=== PATIENT | female | born 1955 | race Caucasian/White ===

== ENCOUNTER → 2016-05-31 | Outpatient (CLI) | payer BC ==
--- NOTE | 2016-06-03 16:04 | BD ---
EXAMINATION TYPE: MG DEXA axial skeleton. DATE OF EXAM: 05/31/2016 3:12 PM COMPARISON: NONE CLINICAL HISTORY: Height: 65 IN Weight: 189 LBS FRAX RISK QUESTIONS: Alcohol (3 or more units per day): NO Family History (Parent hip fracture): NO Glucocorticoids (More than 3mos): NO (Ex: prednisone, prednisolone, methylprednisolone, dexamethasone, and hydrocortisone). History of Fracture in Adulthood: NO Secondary Osteoporosis: 1. Type 1 Diabetes: NO 2. Hyperthyroidism: NO 3. Menopause before 45: YES 37 4. Malnutrition: NO 5. Chronic liver disease: NO Rheumatoid Arthritis: NO Current Tobacco Use: NO RISK FACTORS HISTORY OF: Active: YES Postmenopausal woman: YES TOTAL HYST AGE 37 Take estrogen and/or progesterone medications: NOT NOW How long: AGE 37 - 59 MEDICATIONS: Additional Medications: ALPRAZOLAM, FLEXERIL, HYDROCODONE, METAXALONE, METOPROLOL SUCCINATE, OMEPRAZO LE,MIRAPEX, SERTRALINE XLAMBIEN, TRAMADOL EXAM MEASUREMENTS: Bone mineral densitometry was performed using the Vouchr System. Bone mineral density as measured about the Lumbar spine is: ----- L1-L4(G/cm2): 1.297 T Score Values are as follows: ----- L2: 0.3 ----- L3: 2.0 ----- L4: 1.6 ----- L1-L4: 1.0 Bone mineral density has: Increased 3.7% since study of: 03/26/2011 Bone mineral density about the R hip (g/cm2): 0.844 Bone mineral density about the L hip (g/cm2): 0.856 T Score values are as follows: -----R Neck: -1.4 -----L Neck: -1.3 -----R Intertrochanter: -1.2 -----L Intertrochanter: 0.1 Bone mineral density has: Increased 3.0% since study of: 03/26/2011 IMPRESSION: Osteopenia (T Score between -2.5 and -1 as noted by T score values There is slightly increased risk of fracture and the patient may be considered for treatment. Re-Screen 1-2 years. NOTE: T-SCORE=SD OF THE YOUNG ADULT MEAN.
--- NOTE | 2016-06-05 09:01 | MM ---
Reason for exam: screening (asymptomatic). Last mammogram was performed 1 year and 1 month ago. History: Patient is postmenopausal. Benign excisional biopsy of the right breast, April 27, 1999. Took estrogen for 12 years. Physical Findings: A clinical breast exam by your physician is recommended on an annual basis and results should be correlated with mammographic findings. MG Screening Mammo w CAD Bilateral CC and MLO view(s) were taken. Prior study comparison: April 18, 2015, bilateral MG screening mammo w CAD. December 31, 2013, bilateral MG screening mammo w CAD. There are scattered fibroglandular densities. No significant changes when compared with prior studies. ASSESSMENT: Benign, BI-RAD 2 RECOMMENDATION: Routine screening mammogram of both breasts in 1 year.
== END | disposition home or self-care (01) ==
LOC: RADMAMWWP 14:40
PROVIDERS: ATTEND Family Medicine
DX: Z13.21 Encounter for screening for nutritional disorder (principal); M85.80 Other specified disorders of bone density and structure, unspecified site; Z78.0 Asymptomatic menopausal state
CPT/HCPCS: 77080; G0202

== ENCOUNTER → 2016-12-27 | Outpatient (CLI) | payer BC ==
--- NOTE | 2016-12-27 12:17 | XR ---
EXAMINATION TYPE: XR cervical spine comp DATE OF EXAM: 12/27/2016 TECHNIQUE: Frontal, lateral, oblique, and open mouth view of the cervical spine are obtained. HISTORY: M50.30 cervical disc degeneration per order. Left-sided neck pain with stiffness per patien t. COMPARISON: None FINDINGS: The cervical spine is visualized in its entirety from C1 thru the top of T1 level, it is s traightened in alignment without evidence of acute fracture or dislocation. The pre-vertebral soft t issue appears within normal limits. The C1-C2 articulation is within normal limits on the open mouth view. Vertebral body heights are maintained. There is mild to moderate spurring and disc space narrowing C5 -C6 and C6-C7 levels. Oblique images show mild to moderate left-sided neural foraminal narrowing C4-C 5 and C5-C6 levels. There are uncovertebral facet degenerative changes seen bilaterally most prominen t in the mid cervical spine at C5-C6 level slightly more prominent on the left. Marginal spurring is present. Overlying soft tissue is unremarkable. IMPRESSION: Straightening of cervical spine with multilevel degenerative changes in the mid to lower cervical spine as noted above..
== END | disposition home or self-care (01) ==
LOC: RADXRMAIN 11:16
PROVIDERS: ATTEND Family Medicine
DX: M47.812 Spondylosis without myelopathy or radiculopathy, cervical region (principal); M40.292 Other kyphosis, cervical region
CPT/HCPCS: 72050

== ENCOUNTER → 2017-01-10 | Outpatient (CLI) | payer BC ==
--- NOTE | 2017-01-11 00:29 | MR ---
EXAMINATION TYPE: MR cervical spine wo con DATE OF EXAM: 01/10/2017 COMPARISON: NONE HISTORY: Neck pain, headaches, LUE radic x 1-2 years, no trauma TECHNIQUE: Multiplanar, multisequence images of the cervical spine were acquired. The cervical vertebra show fairly normal alignment. There is narrowing at C5-6 C6-7 disc spaces. Ther e is mild spurring of the endplates. Cervical spinal cord has normal signal pattern without evidence of edema. I see no cervical disc herniation. There is no sign of spinal stenosis. Brainstem is intact . I see no bony destructive process. IMPRESSION: Mild spondylosis in the lower cervical spine. No fracture.
== END | disposition home or self-care (01) ==
LOC: RADMRIMAIN 17:48
PROVIDERS: ATTEND Family Medicine
DX: M47.812 Spondylosis without myelopathy or radiculopathy, cervical region (principal)
CPT/HCPCS: 72141

== ENCOUNTER 2017-07-11 11:12 | Observation (INO) | payer BC ==
--- NOTE | 2017-07-11 12:06 | ED ---
General Adult HPI - General Chief complaint: Chest Pain Stated complaint: suyapa, chest pain, hypertension, [place] Time Seen by Provider: 07/11/17 11:42 Source: patient, RN notes reviewed Mode of arrival: wheelchair Limitations: no limitations - History of Present Illness Initial comments: 61-year-old female presents to the emergency department with a chief complaint of chest pain and shortness of breath. Patient states she's had this episodes of chest pain and shortness of breath on and off for the past 3 weeks. Patient states that will come and go. Patient states that she's to active or she talked to much she feels like she has to catch her breath. She states that she is chest pain she feels like her heart is racing. She denies any recent long trips or travel she denies any history of blood clots. She states that she's never really had these issues before. Patient states that she went to her family care doctor he was referred here to be evaluated. Patient does admit to have a history of hypertension and states that she did take her medications last night. Patient denies any cardiac history in herself. Patient denies any history of any lung issues. Patient denies any recent fever, chills, back pain , abdominal pain, nausea vomiting, numbness or tingling, dysuria or hematuria, constipation or diarrhea, headaches or visual changes, or any other current symptoms. - Related Data Home Medications Medication Instructions Recorded Confirmed ALPRAZolam [ALPRAZolam] 0.5 mg PO BID PRN 07/04/15 07/11/17 Cyclobenzaprine [Flexeril] 10 mg PO TID PRN 07/04/15 07/11/17 Metaxalone [Metaxalone] 800 mg PO QAM 07/04/15 07/11/17 Metoprolol Succinate [Toprol XL] 50 mg PO HS 07/04/15 07/11/17 Omeprazole [Omeprazole] 20 mg PO DAILY 07/04/15 07/11/17 Pramipexole [Mirapex] 0.5 mg PO HS 07/04/15 07/11/17 Sertraline HCl [Sertraline HCl] 100 mg PO QAM 07/04/15 07/11/17 Acetaminophen-Codeine 300-30mg 1 tab PO TID 07/11/17 07/11/17 [Tylenol #3] Allergies Allergy/AdvReac Type Severity Reaction Status Date / Time pumpkin Allergy Anaphylaxis Verified 07/11/17 11:54 Sulfa (Sulfonamide Allergy Rash/Hives Verified 07/11/17 11:54 Antibiotics) Review of Systems ROS Statement: Those systems with pertinent positive or pertinent negative responses have been documented in the HPI. ROS Other: All systems not noted in ROS Statement are negative. Past Medical History Past Medical History: GERD/Reflux, Hypertension, Musculoskeletal Disorder Additional Past Medical History / Comment(s): hiatal hernia, states "feels like I get a lashonda horse when I bend over in my stomach area and I have to rub it out",chronic neck and back pain, restless leg syndrome History of Any Multi-Drug Resistant Organisms: None Reported Past Surgical History: Appendectomy, Section, Cholecystectomy, Hysterectomy, Orthopedic Surgery Additional Past Surgical History / Comment(s): c-sect x3,rt knee arthroscopy x2 , heel spurs nahomy feet,laparoscopy x 10 endometriosis/pre ca cells Past Anesthesia/Blood Transfusion Reactions: Postoperative Nausea & Vomiting ( PONV) Additional Past Anesthesia/Blood Transfusion Reaction / Comment(s): no blood transfusion Past Psychological History: No Psychological Hx Reported Smoking Status: Former smoker Past Alcohol Use History: None Reported Past Drug Use History: None Reported - Past Family History Mother Additional Family Medical History / Comment(s): w/ sepsis after area removed from pancreas Father Family Medical History: Cancer Additional Family Medical History / Comment(s): stomach Brother(s) Family Medical History: Cancer Additional Family Medical History / Comment(s): colon- at age 52 Sister(s) Family Medical History: CVA/TIA Additional Family Medical History / Comment(s): cva- at age 55 General Exam - General Exam Comments Initial Comments: General: The patient is awake and alert, in no distress, and does not appear acutely ill. Eye: Pupils are equal, round and reactive to light, extra-ocular movements are intact; there is normal conjunctiva bilaterally. No signs of icterus. Ears, nose, mouth and throat: There are moist mucous membranes and no oral lesions. Neck: The neck is supple, there is no tenderness. Cardiovascular: There is a regular rate and rhythm. No murmur, rub or gallop is appreciated. Respiratory: Lungs are clear to auscultation, respirations are non-labored, breath sounds are equal. No wheezes, stridor, rales, or rhonchi. Gastrointestinal: Soft, non-distended, non-tender abdomen without masses or organomegaly noted. There is no rebound or guarding present. No CVA tenderness. Bowel sounds are unremarkable. Back: There is no tenderness to palpation in the midline. There is no obvious deformity. No rashes noted. Musculoskeletal: Normal ROM, no tenderness, There is no pedal edema. There is no calf tenderness or swelling. Sensation intact. Pulses equal bilaterally 2+. Neurological: CN II-XII intact, There are no obvious motor or sensory deficits. Coordination appears grossly intact. Speech is normal. Skin: Skin is warm and dry and no rashes or lesions are noted. Psychiatric: Cooperative, appropriate mood & affect, normal judgment. Limitations: no limitations Course Vital Signs 07/11/17 07/11/17 07/11/17 11:28 11:57 12:08 Temperature 97.4 F L Pulse Rate 90 77 Respiratory 16 18 18 Rate Blood Pressure 194/89 166/95 O2 Sat by Pulse 97 99 Oximetry 07/11/17 12:56 Temperature Pulse Rate 75 Respiratory 18 Rate Blood Pressure 159/79 O2 Sat by Pulse 94 L Oximetry EKG Findings - EKG Comments: EKG Findings:: normal sinus rhythm 81 bpm, normal axis, no atopy, no S-T depressions or elevations, Medical Decision Making - Medical Decision Making 61-year-old female presents to the emergency department with a chief complaint of chest pain and shortness of breath. At this time patient's lab work is reviewed and negative. Due to the patient's continued story the history of the continued on and off shortness of breath chest pain history of the diuresis there is concern that this could be unstable angina in nature. This time we did discuss we will admit the patient for continued cardiac monitoring. The patient is in agreement with this plan. All questions have been answered. - Lab Data Result diagrams: 07/11/17 12:06 07/11/17 12:06 Lab Results 07/11/17 07/11/17 07/11/17 Range/Units 12:06 12:06 12:06 WBC 7.4 (3.8-10.6) k/uL RBC 4.27 (3.80-5.40) m/uL Hgb 12.2 (11.4-16.0) gm/dL Hct 36.7 (34.0-46.0) % MCV 85.8 (80.0-100.0) fL MCH 28.5 (25.0-35.0) pg MCHC 33.2 (31.0-37.0) g/dL RDW 12.9 (11.5-15.5) % Plt Count 218 (150-450) k/uL Neutrophils % 63 % Lymphocytes % 24 % Monocytes % 7 % Eosinophils % 3 % Basophils % 1 % Neutrophils # 4.7 (1.3-7.7) k/uL Lymphocytes # 1.8 (1.0-4.8) k/uL Monocytes # 0.5 (0-1.0) k/uL Eosinophils # 0.2 (0-0.7) k/uL Basophils # 0.1 (0-0.2) k/uL PT (9.0-12.0) sec INR (<1.2) APTT (22.0-30.0) sec D-Dimer (<0.60) mg/L FEU Sodium 142 (137-145) mmol/L Potassium 4.1 (3.5-5.1) mmol/L Chloride 104 (98-107) mmol/L Carbon Dioxide 27 (22-30) mmol/L Anion Gap 11 mmol/L BUN 17 (7-17) mg/dL Creatinine 0.62 (0.52-1.04) mg/dL Est GFR (MDRD) Af Amer >60 (>60 ml/min/1.73 sqM) Est GFR (MDRD) Non-Af >60 (>60 ml/min/1.73 sqM) Glucose 90 (74-99) mg/dL Calcium 9.4 (8.4-10.2) mg/dL Magnesium 1.8 (1.6-2.3) mg/dL Total Bilirubin 0.4 (0.2-1.3) mg/dL AST 33 (14-36) U/L ALT 44 (9-52) U/L Alkaline Phosphatase 118 (38-126) U/L Total Creatine Kinase 66 (30-135) U/L CK-MB (CK-2) 0.8 (0.0-2.4) ng/mL CK-MB (CK-2) Rel Index 1.2 Troponin I <0.012 (0.000-0.034) ng/mL NT-Pro-B Natriuret Pep pg/mL Total Protein 6.9 (6.3-8.2) g/dL Albumin 4.0 (3.5-5.0) g/dL 07/11/17 07/11/17 Range/Units 12:06 12:06 WBC (3.8-10.6) k/uL RBC (3.80-5.40) m/uL Hgb (11.4-16.0) gm/dL Hct (34.0-46.0) % MCV (80.0-100.0) fL MCH (25.0-35.0) pg MCHC (31.0-37.0) g/dL RDW (11.5-15.5) % Plt Count (150-450) k/uL Neutrophils % % Lymphocytes % % Monocytes % % Eosinophils % % Basophils % % Neutrophils # (1.3-7.7) k/uL Lymphocytes # (1.0-4.8) k/uL Monocytes # (0-1.0) k/uL Eosinophils # (0-0.7) k/uL Basophils # (0-0.2) k/uL PT 10.6 (9.0-12.0) sec INR 1.1 (<1.2) APTT 33.7 H (22.0-30.0) sec D-Dimer 0.28 (<0.60) mg/L FEU Sodium (137-145) mmol/L Potassium (3.5-5.1) mmol/L Chloride (98-107) mmol/L Carbon Dioxide (22-30) mmol/L Anion Gap mmol/L BUN (7-17) mg/dL Creatinine (0.52-1.04) mg/dL Est GFR (MDRD) Af Amer (>60 ml/min/1.73 sqM) Est GFR (MDRD) Non-Af (>60 ml/min/1.73 sqM) Glucose (74-99) mg/dL Calcium (8.4-10.2) mg/dL Magnesium (1.6-2.3) mg/dL Total Bilirubin (0.2-1.3) mg/dL AST (14-36) U/L ALT (9-52) U/L Alkaline Phosphatase (38-126) U/L Total Creatine Kinase (30-135) U/L CK-MB (CK-2) (0.0-2.4) ng/mL CK-MB (CK-2) Rel Index Troponin I (0.000-0.034) ng/mL NT-Pro-B Natriuret Pep 95 pg/mL Total Protein (6.3-8.2) g/dL Albumin (3.5-5.0) g/dL - Radiology Data Radiology results: report reviewed, image reviewed Disposition Clinical Impression: Unstable angina Disposition: ADMITTED IP TO THIS [facility] Condition: Stable Referrals: Darci Mandel MD [Primary Care Provider] - 1-2 days Decision Date: 07/11/17 Decision Time: 13:45
[2017-07-11 12:21] LABS: Basophils # (A) 0.1 k/uL (0-0.2); Basophils % (A) 1 %; Eosinophils # (A) 0.2 k/uL (0-0.7); Eosinophils % (A) 3 %; HCT 36.7 % (34.0-46.0); HGB 12.2 gm/dL (11.4-16.0); Lymphocytes # (A) 1.8 k/uL (1.0-4.8); Lymphocytes % (A) 24 %; MCH 28.5 pg (25.0-35.0); MCHC 33.2 g/dL (31.0-37.0); MCV 85.8 fL (80.0-100.0); Mean Platelet Volume 7.3; Monocytes # (A) 0.5 k/uL (0-1.0); Monocytes % (A) 7 %; Neutrophils # (A) 4.7 k/uL (1.3-7.7); Neutrophils % (A) 63 %; Platelet Count 218 k/uL (150-450); RBC 4.27 m/uL (3.80-5.40); RDW 12.9 % (11.5-15.5); WBC 7.4 k/uL (3.8-10.6)
[2017-07-11 12:28] LABS: ALT 44 U/L (9-52); AST 33 U/L (14-36); Alkaline Phosphatase 118 U/L (38-126); Anion Gap 11 mmol/L; Blood Urea Nitrogen 17 mg/dL (7-17); Calcium 9.4 mg/dL (8.4-10.2); Carbon Dioxide 27 mmol/L (22-30); Chloride 104 mmol/L (98-107); Glucose 90 mg/dL (74-99); Potassium 4.1 mmol/L (3.5-5.1); Sodium 142 mmol/L (137-145); Total Bilirubin 0.4 mg/dL (0.2-1.3); Total Protein 6.9 g/dL (6.3-8.2)
[2017-07-11 12:31] LABS: D-Dimer 0.28 mg/L FEU (<0.60)
--- NOTE | 2017-07-11 12:32 | XR ---
EXAMINATION TYPE: XR chest 2V DATE OF EXAM: 07/11/2017 COMPARISON: Prior chest x-ray 07/06/2015 HISTORY: Chest pain, weakness and shortness of breath TECHNIQUE: Frontal and lateral views of the chest are obtained. FINDINGS: Cardiac mediastinal silhouette, pulmonary vascularity and sendy are stable. There are overl maritza cardiac leads. No evident airspace disease, pneumothorax, or pleural effusion. Surgical clips pr esent in the right upper quadrant. IMPRESSION: Stable cardiomegaly. No acute cardiopulmonary disease.
[2017-07-11 12:35] LABS: INR 1.1 (<1.2); Partial Thromboplastin Time 33.7 sec (22.0-30.0); Prothrombin Time 10.6 sec (9.0-12.0)
[2017-07-11 12:47] LABS: Creatine Kinase 66 U/L (30-135)
[2017-07-11 13:00] LABS: Creatine Kinase MB 0.8 ng/mL (0.0-2.4); Troponin I <0.012 ng/mL (0.000-0.034)
[2017-07-11] MEDS ORDERED: HEPARIN SOD,PORK IN 0.45% NACL 25,000 UNIT in 0.45% NACL 1 500ML.BAG IV SCH (13:45)
[2017-07-11] MEDS ORDERED: HEPARIN SODIUM,PORCINE 5,000 UNIT/ML 1 ML VIAL IV ONE (13:45)
[2017-07-11] MEDS ORDERED: NITROGLYCERIN SL TABS 0.4 MG TAB SUBLINGUAL PRN (13:45)
[2017-07-11] MEDS ORDERED: CYCLOBENZAPRINE 10 MG TAB PO PRN (17:17)
[2017-07-11] MEDS: Acetaminophen-Codeine 300-30mg TAB PO SCH ×2 (17:34→22:16)
[2017-07-11 19:43] LABS: Creatine Kinase 58 U/L (30-135)
[2017-07-11 19:55] LABS: Creatine Kinase MB 0.7 ng/mL (0.0-2.4); Troponin I <0.012 ng/mL (0.000-0.034)
[2017-07-11] MEDS: ALPRAZolam 0.5 MG TAB PO PRN (20:41)
--- NOTE | 2017-07-11 20:42 | HP ---
HISTORY AND PHYSICAL DATE OF SERVICE: 07/11/2017 CHIEF COMPLAINT: Chest pain. HISTORY OF PRESENT ILLNESS: This 61-year-old woman with a past medical history of multiple medical problems, including GERD, hypertension, hyperlipidemia, history of DJD, history of hiatal hernia, being followed by Darci Mandel in the outpatient setting, was admitted with chest pain to [facility]. The patient had multiple episodes of chest pain for almost 2 weeks, coming and going on different occasions. The patient also had shortness of breath. Pain is mostly felt in the anterior part of the chest, heavy in character, and sometimes located. The patient came to [facility] and was admitted for evaluation and treatment. There is no history of any fever, rigors or chills. No history of headache, loss of consciousness, seizures. After admission, D-dimer was negative and basic labs were also negative. PAST MEDICAL HISTORY: 1. History of GERD. 2. Hypertension. 3. Hyperlipidemia. 4. History of hiatal hernia. 5. History of appendectomy. 6. History of section. MEDICATIONS: 1. Tylenol #3 one p.o. t.i.d. 2. Zoloft 100 mg each morning. 3. Mirapex 0.5 mg at bedtime. 4. Omeprazole 20 mg p.o. daily. 5. Toprol XL 50 mg at bedtime. 6. Metaxalone 800 mg p.o. each morning. 7. Flexeril 10 mg p.o. t.i.d. p.r.n. 8. Xanax 0.5 p.o. b.i.d. p.r.n. ALLERGIES: 1. PUMPKIN. 2. SULFA. FAMILY HISTORY: History of cancer, sepsis. SOCIAL HISTORY: Previous history of smoking. No current smoking or alcohol intake. REVIEW OF SYSTEMS: ENT: No diminished hearing. No diminished vision. CARDIOVASCULAR SYSTEM: As mentioned earlier. RESPIRATORY SYSTEM: As mentioned earlier. GI: No nausea, vomiting. : No dysuria or retention. NERVOUS SYSTEM: No numbness, weakness. ALLERGY/IMMUNOLOGY: No asthma, hayfever. MUSCULOSKELETAL: As mentioned earlier. HEMATOLOGY/ONCOLOGY: No history of anemia. ENDOCRINE: No history of diabetes, hypothyroidism. CONSTITUTIONAL: As mentioned earlier. DERMATOLOGY: Negative. RHEUMATOLOGY: Negative. PSYCHIATRY: As mentioned earlier. PHYSICAL EXAMINATION: Patient alert and oriented x3. Pulse 70, blood pressure 178/80, respiration 18, temperature 97.7, pulse ox 94% on room air. HEENT: Conjunctivae normal. Oral mucosa moist. NECK: No jugular venous distention. No carotid bruit. No lymph node enlargement. CARDIOVASCULAR SYSTEM: S1, S2 muffled. No S3. No S4. RESPIRATORY SYSTEM: Breath sounds diminished at the bases. No rhonchi. No crackles. ABDOMEN: Soft, non-tender. No mass palpable. LEGS: No edema. No swelling. NERVOUS SYSTEM: Higher functions as mentioned earlier. Moves all 4 limbs. No focal motor or sensory deficit. LYMPHATICS: No lymph node palpable in neck, axillae or groin. SKIN: No ulcer, rash, bleeding. LABS: CBC and BMP within normal limits. D-dimer 0.28. ASSESSMENT: 1. Chest pain, possible unstable angina. Rule out GERD. 2. History of hypertension. 3. Hyperlipidemia. 4. History of degenerative joint disease. 5. Hiatal hernia. 6. History of gastroesophageal reflux disease. 7. Cholecystectomy. 8. Remote history of nicotine dependence. RECOMMENDATIONS AND DISCUSSION: In this 61-year-old woman who presented with multiple complex medical issues, we will monitor the patient closely, continue the current medications, continue with symptomatic treatment. I would recommend continuing with the current medications. Unstable angina protocol. Cardiology consultation. Rule out myocardial infarction. Resume the home medications. Protonix. Guarded prognosis because of multiple complex medical issues. Further recommendations to follow. I also recommend close followup with Dr. Darci Mandel, who is the primary physician. MMODL / IJN: [id number] /
[2017-07-11] MEDS ORDERED: PRAMIPEXOLE 0.5 MG TAB PO SCH (21:00)
[2017-07-11] MEDS ORDERED: METOPROLOL SUCCINATE (ER) 50 MG TAB.ER.24H PO SCH (21:00)
[2017-07-11] MEDS ORDERED: ZOLPIDEM 10 MG TAB PO PRN (23:50)
[2017-07-12 00:37] LABS: Creatine Kinase 51 U/L (30-135)
[2017-07-12 00:50] LABS: Creatine Kinase MB 0.6 ng/mL (0.0-2.4); Troponin I <0.012 ng/mL (0.000-0.034)
[2017-07-12] MEDS: Acetaminophen-Codeine 300-30mg TAB PO PRN ×2 (04:38→11:46)
[2017-07-12] MEDS ORDERED: PANTOPRAZOLE 40 MG TABLET PO SCH (07:30)
[2017-07-12 08:03] LABS: Cholesterol 256 mg/dL (<200); HDL Cholesterol 44 mg/dL (40-60); LDL Cholesterol,Calculated 177 mg/dL (0-99); Triglycerides 174 mg/dL (<150)
[2017-07-12 08:42] VITALS: RESP 16
[2017-07-12] MEDS ORDERED: SERTRALINE 100 MG TAB PO SCH (09:00)
[2017-07-12] MEDS ORDERED: METAXALONE 800 MG PO SCH (09:00)
[2017-07-12] MEDS ORDERED: ASPIRIN 325 MG TAB PO SCH (09:00)
[2017-07-12 10:19] VITALS: BMI 29.0
[2017-07-12] MEDS ORDERED: ATORVASTATIN 40 MG TAB PO SCH (11:00)
[2017-07-12] MEDS ORDERED: ASPIRIN 81 MG PO SCH (11:00)
[2017-07-12] MEDS: ALPRAZolam 0.5 MG TAB PO PRN (12:13)
[2017-07-12 12:31] VITALS: BP 156/83; PULSE 77; TEMP 98.2
--- NOTE | 2017-07-12 17:01 | CONS ---
CONSULTATION This is a 61-year-old lady who has been admitted to the hospital with episode of chest discomfort. She carries a diagnosis of hyperlipidemia and hypertension. 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 She is reasonably active. She came in because for the last few days she has been experiencing what she describes as an achy discomfort in the chest on and off randomly, without any relation to physical activity. However, yesterday, she had sharp pain that almost took her breath away and it happened in the epigastric area and then she felt she had some palpitations very briefly. However, she is resting comfortably without symptoms. At the time of my evaluation she denies any chest pain, shortness of breath or palpitations. PAST MEDICAL HISTORY: 1. Hiatal hernia. 2. Hypertension. 3. Hypercholesterolemia. 4. History of some muscle aches. She takes Skelaxin. PAST SURGICAL HISTORY: She is status post appendectomy, section, cholecystectomy, hysterectomy. SOCIAL HISTORY: Patient quit smoking more than 30 years ago. She does not use alcohol on a regular basis. ALLERGIES: He is allergic to SULFA. MEDICATIONS: 1. Muscle relaxants. 2. Toprol-XL 50 mg daily. 3. Omeprazole 20 mg daily. 4. Xanax p.r.n. 5. Flexeril. 6. She takes some Tylenol p.r.n. EXAMINATION: Blood pressure is 120/70, pulse rate is 70 per minute regular. HEENT unremarkable. Fundus was not examined by me. Neck is supple. No JVD. I do not hear a carotid bruit. There is no thyromegaly. Heart exam reveals S1, S2 heard normally without a rub, murmur or gallop. Lungs are clear. Abdomen is soft. There is mild epigastric tenderness. The patient is already on omeprazole. Bowel sounds are normal. Lower extremities reveal palpable pulses. No edema. Central nervous system is normal. EKG revealed a sinus mechanism, no acute changes. LABORATORY DATA: Revealed that troponins are unremarkable. Her lipid profile suggests LDL of 177, total cholesterol of 256. IMPRESSION: 1. Atypical chest pain. 2. Hypertension. 3. Hyperlipidemia, untreated. 4. History of some musculoskeletal problems. RECOMMENDATIONS: I am recommending that we initiate her on Lipitor 40 mg daily. I gave her a prescription. She is advised to take aspirin 81 mg daily. Continue metoprolol succinate. She can be discharged with the understanding that I will arrange for a stress test very early next week and until the stress test is performed, she should not return to work. I discussed my thoughts in detail with the patient and we will call her and make arrangements for stress test. Advised not to do strenuous activity until then. I explained to her that the EKG and enzymes were normal and pain is atypical, but she should not return to work until she has a stress test to assess for ischemia. Thank you very much for the consult. ARLENE / JINNY: [id number] /
--- NOTE | 2017-07-12 23:37 | DS ---
DISCHARGE SUMMARY FINAL DIAGNOSES: 1. Atypical chest pain, myocardial infarction ruled out. 2. History of hypertension. 3. Hyperlipidemia. 4. History of degenerative joint disease. 5. Hiatal hernia. 6. History of gastroesophageal reflux disease. 7. History of cholecystectomy. 8. Remote history of nicotine dependence. DISCHARGE DISPOSITION: The patient is being discharged in stable condition with guarded prognosis. This 61- year-old woman with past medical history of admitted with chest pain, myocardial infarction was ruled out. Cardiology evaluated the patient. Recommend outpatient evaluation including stress test. PHYSICAL EXAMINATION: On exam, vital signs stable. Cardiovascular: S1, S2. Abdomen soft. Nervous system: No focal deficits. DISCHARGE ADVICE AND MEDICATIONS: 1. The patient is recommended to consult with Cardiology or primary physician or the ER in case of any recurrence otherwise. 2. Discharge diet is cardiac diet. 3. Activity limited until followup. 4. Follow up with Dr. Darci Mandel in two to three days. 5. Cu with gas operations analyst as recommended:. MEDICATION: 1. Tylenol #3 1 p.o. t.i.d. p.r.n. 2. Xanax 0.5 b.i.d. p.r.n. 3. Aspirin 81 mg p.o. daily. 4. Lipitor 40 mg. 5. Flexeril 10 mg t.i.d. p.r.n. 6. Metaxalone 800 mg p.o. q.a.m. 7. Toprol-XL 50 mg p.o. q.h.s. 8. Omeprazole 20 mg p.o. daily. 9. Mirapex 0.5 mg q.h.s. 10.Zoloft 100 mg q.a.m. Once again, the patient is being discharged in stable condition with guarded prognosis. MMODL / IJN: [id number] / MTDD
== END 2017-07-12 14:25 | disposition home or self-care (01) ==
LOC: EC 11:12 → 3OBS 13:45
PROVIDERS: ADMIT Internal Medicine; ATTEND Internal Medicine
DX: R07.89 Other chest pain (principal); I10 Essential (primary) hypertension; R10.13 Epigastric pain; E78.5 Hyperlipidemia, unspecified; M19.90 Unspecified osteoarthritis, unspecified site; K44.9 Diaphragmatic hernia without obstruction or gangrene; K21.9 Gastro-esophageal reflux disease without esophagitis; Z87.891 Personal history of nicotine dependence; E78.00 Pure hypercholesterolemia, unspecified; R00.2 Palpitations; R51 Headache; R06.02 Shortness of breath; G25.81 Restless legs syndrome; M54.9 Dorsalgia, unspecified; M54.2 Cervicalgia; G89.29 Other chronic pain; Z90.710 Acquired absence of both cervix and uterus; Z90.49 Acquired absence of other specified parts of digestive tract; Z91.018 Allergy to other foods; Z79.899 Other long term (current) drug therapy; Z88.2 Allergy status to sulfonamides; Z82.3 Family history of stroke; Z80.0 Family history of malignant neoplasm of digestive organs
CPT/HCPCS: 99285; 96365 ×2; 96376 ×2; 96366 ×2; 36415; 93005; 85379; 83880; 80061; 80053; 82550; 82553; 83735; 84484; 85025; 85610; 85730 ×2; 71046; G0378 ×2; J1644 ×2

== ENCOUNTER → 2017-07-17 | Day surgery (SDC) | payer BC ==
[2017-07-16 10:04] VITALS: BMI 29.0
[~2017-07-17] MED LIST: ALPRAZolam 0.25 MG TAB PO PRN; ASPIRIN 325 MG TAB PO ONE; HEPARIN SODIUM 1,000 UN/ML (10ML VL) ONE; IOHEXOL 350 MG/ML (PER ML) 100ML BTL INJ ONE; LIDOCAINE 2% INJ 20 MG/ML (20 ML MDV) ONE; LIDOCAINE 2% INJ 20 MG/ML SQ ONE; MIDAZOLAM 2 MG/2 ML VIAL IV ONE; MIDAZOLAM 2 MG/2 ML VIAL ONE; NITROGLYCERIN SL TABS 0.4 MG TAB SUBLINGUAL ONE; NITROGLYCERIN SL TABS 0.4 MG TAB SUBLINGUAL PRN; RX INFO: IV CONTRAST WAS GIVEN 1 EACH MISC MISCELLANE PRN; SODIUM CHLORIDE 0.9% 1,000 ML IV SCH; SODIUM CHLORIDE 0.9% 1,000 ML in EMPTY BAG 1 BAG IV ONE; VERAPAMIL 2.5 MG/ML 2 ML AMP ONE; VERAPAMIL SYRINGE (5 MG/10 ML) INTRAARTER ONE; diphenhydrAMINE 50 MG/ML 1 ML VIAL IVP ONE; diphenhydrAMINE 50 MG/ML 1 ML VIAL ONE
[2017-07-17 08:16] VITALS: PULSE 89; TEMP 97.9
--- NOTE | 2017-07-17 11:40 | CC ---
CARDIAC CATHETERIZATION REPORT DATE OF SERVICE: 07/17/2017. PROCEDURE: Left heart catheterization and coronary angiography. PERFORMED BY: Dr. Jhonatan Prakash. Moderate conscious sedation time was 28 minutes. Patient was monitored closely for oxygen saturation and vital signs. CLINICAL INFORMATION: Mrs. 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 This lady was recently at [facility] with episode of chest pain and NH was ruled out. She was discharged and had a stress test. This was a stress echo which revealed inferobasal hypokinesia and also a flat response with blood pressure and chest discomfort and therefore she was advised cardiac catheterization to confirm the abnormal stress test. Risks, benefits, options, rationale were explained to the patient and family in great detail. PROCEDURE NOTE: Under local anesthesia and strict aseptic precautions, a 6-Luxembourgish introducer was placed in the right radial artery. I used a micropuncture needle technique. An Ultimate 1 catheter was used to perform selective coronary angiography of the left system. A standard JR4 catheter was used to perform selective coronary angiography of the right coronary artery. A pigtail catheter was used to check LV pressure but LV-gram was not performed. The sheath was taken out and a Vasc band applied. Good hemostasis was secured. Saturation in the fingers of the right hand was 93%. The patient was sent to the room in stable condition. Results were discussed with the family and patient and she will be seeing me in the office early next week. CARDIAC CATHETERIZATION FINDINGS: Left ventricular end-diastolic pressure was about 18 mmHg. There was no gradient across aortic valve. CORONARY ANGIOGRAPHY FINDINGS: RIGHT CORONARY ARTERY: Technically this is a codominant vessel, has minor diffuse irregularities of about 20% to 30%. Gives off a large acute marginal proximally. Distally continues as a posterolateral branch. There is no significant disease other than minor irregularities noted. LEFT MAIN CORONARY ARTERY: Short patent disease-free vessel that bifurcates into LAD and circumflex. LEFT ANTERIOR DESCENDING CORONARY ARTERY: Good caliber vessel extends along the anterior wall, runs all the way to the apex, curves over the apex to supply the inferoapical portion of left ventricle. There are 3 small diagonal branches and several septal branches, which are free of significant disease. LEFT POSTERIOR CIRCUMFLEX CORONARY ARTERY: Technically a codominant type vessel, gives off a large obtuse marginal that runs laterally, divides into 3 or 4 smaller branches supplies a fair amount of myocardium. Another branch in the AV groove is also free of significant disease. Overall, no significant disease in the circumflex system. LEFT VENTRICULOGRAM: This was not performed. FINAL IMPRESSION: This patient has a codominant/right-dominant system. No significant disease other than minor irregularities. Filling pressures are slightly elevated. Results were discussed with the patient and family. RECOMMENDATION: I am recommending aggressive medical therapy with lipid-lowering strategy. She is already on 40 mg of Lipitor. She is advised to have her fasting lipid profile in 6 to 8 weeks through her PCP. Aggressive risk factor modification is advised. Patient will be discharged later on today if she remains stable. MMODL / IJN: [id number] /
--- NOTE | 2017-07-17 11:40 | LTR ---
July 17, 2017 Re: Sharlene Rock Darci: Thank you for the opportunity to participate in the care of Mrs. Sharlene Rock. I am pleased to report to you that she does not have any significant obstructive CAD that would require intervention. Aggressive risk factor modification is advised and patient will be discharged later on today if she remains stable. Please find enclosed my cardiac cath report for your records. Thank you very much for your referral and please call for questions. With kindest regards. Sincerely yours, MD ARLENE Grubbs / JINNY: [id number] /
[2017-07-17 14:56] VITALS: RESP 18
[2017-07-17 15:44] VITALS: BP 137/77
== END ==
LOC: CATHCVL 07:54
PROVIDERS: ATTEND Internal Medicine Interventional Cardiology
DX: I20.0 Unstable angina (principal); R94.39 Abnormal result of other cardiovascular function study; I10 Essential (primary) hypertension; E78.00 Pure hypercholesterolemia, unspecified; Z87.891 Personal history of nicotine dependence; Z79.899 Other long term (current) drug therapy; Z88.2 Allergy status to sulfonamides
CPT/HCPCS: 93458; C1894 ×2; C1769 ×2; J2001; J2250; J1200; Q9967; J1644

== ENCOUNTER 2017-11-17 09:15 | Day surgery (SDC) | payer BC ==
[2017-11-13 11:35] VITALS: BMI 29.0
[~2017-11-17 09:15] MED LIST changes: -ALPRAZolam 0.25 MG TAB PO PRN; -ASPIRIN 325 MG TAB PO ONE; -HEPARIN SODIUM 1,000 UN/ML (10ML VL) ONE; -IOHEXOL 350 MG/ML (PER ML) 100ML BTL INJ ONE; +LACTATED RINGERS 1,000 ML IV SCH; -LIDOCAINE 2% INJ 20 MG/ML (20 ML MDV) ONE; -LIDOCAINE 2% INJ 20 MG/ML SQ ONE; -MIDAZOLAM 2 MG/2 ML VIAL IV ONE; -MIDAZOLAM 2 MG/2 ML VIAL ONE; -NITROGLYCERIN SL TABS 0.4 MG TAB SUBLINGUAL ONE; -NITROGLYCERIN SL TABS 0.4 MG TAB SUBLINGUAL PRN; -RX INFO: IV CONTRAST WAS GIVEN 1 EACH MISC MISCELLANE PRN; -SODIUM CHLORIDE 0.9% 1,000 ML IV SCH; -SODIUM CHLORIDE 0.9% 1,000 ML in EMPTY BAG 1 BAG IV ONE; -VERAPAMIL 2.5 MG/ML 2 ML AMP ONE; -VERAPAMIL SYRINGE (5 MG/10 ML) INTRAARTER ONE; -diphenhydrAMINE 50 MG/ML 1 ML VIAL IVP ONE; -diphenhydrAMINE 50 MG/ML 1 ML VIAL ONE
[2017-11-17 09:31] VITALS: RESP 16; TEMP 98.8
[2017-11-17] MEDS ORDERED: LIDOCAINE 1% 20 ML VIAL (10MG/ML) FOR IV START INTRADERMA ONE (09:36)
[2017-11-17] MEDS ORDERED: PROPOFOL 10 MG/ML 20 ML VIAL IV ONE (10:35)
[2017-11-17] MEDS ORDERED: IV FLUID CONTINUATION 1,000 ML IV ONE (11:00)
--- NOTE | 2017-11-17 11:05 | P.PCN ---
Date of Procedure: 11/17/17 Procedure(s) Performed: Procedure: Total colonoscopy. Preoperative diagnosis: Screening for neoplasia. Postoperative diagnosis: Exam within normal limits. Preparation: HalfLytely prep. Sedation: Was provided by anesthesia. Brief clinical history: The patient is a 61-year-old female who is scheduled for this evaluation for screening for neoplasia because of family history of colon cancer in her father and brother. She had a prior exam around 5 years ago. The patient has no abdominal complaints, bleeding or anemia. Occasional issues with hemorrhoids. Procedure: With the patient on her left lateral decubitus position and after informed consent and adequate sedation, the perianal area was inspected and it did not show any fissures or fistulas. There were no masses felt on digital rectal examination. The Olympus CFQ 160L video colonoscope was then inserted in the rectum in the usual fashion and advanced to the cecum. The mucosa appeared healthy. There was no polyps or tumors seen or any obvious diverticular disease or other pathology. I retroflexed the endoscope in the rectum before the endoscope was withdrawn. Low-grade internal hemorrhoids were noted with no evidence of bleeding. The patient tolerated the procedure well. Plan: The patient was reassured. She will follow-up with you as planned and I recommended repeat exam in 5 years.
[2017-11-17 11:24] VITALS: BP 139/85; PULSE 85
== END 2017-11-17 12:04 | disposition home or self-care (01) ==
LOC: ORWHC2ENDO 09:15
DX: Z12.11 Encounter for screening for malignant neoplasm of colon (principal); K64.8 Other hemorrhoids; Z80.0 Family history of malignant neoplasm of digestive organs; K21.9 Gastro-esophageal reflux disease without esophagitis; I10 Essential (primary) hypertension; E78.5 Hyperlipidemia, unspecified; Z79.82 Long term (current) use of aspirin; Z79.891 Long term (current) use of opiate analgesic; Z79.899 Other long term (current) drug therapy; Z88.2 Allergy status to sulfonamides; Z91.09 Other allergy status, other than to drugs and biological substances
CPT/HCPCS: J2704; G0105

== ENCOUNTER 2018-06-25 16:10 | Emergency (ER) | payer BC ==
[2018-06-25 17:11] LABS: Basophils % (A) 0 %; Eosinophils # (A) 0.1 k/uL (0-0.7); Eosinophils % (A) 1 %; HCT 35.9 % (34.0-46.0); HGB 11.4 gm/dL (11.4-16.0); Lymphocytes # (A) 2.6 k/uL (1.0-4.8); Lymphocytes % (A) 30 %; MCHC 31.8 g/dL (31.0-37.0); MCV 81.8 fL (80.0-100.0); Mean Platelet Volume 7.3; Monocytes # (A) 0.4 k/uL (0-1.0); Monocytes % (A) 5 %; Neutrophils # (A) 5.2 k/uL (1.3-7.7); Neutrophils % (A) 62 %; Platelet Count 205 k/uL (150-450); WBC 8.5 k/uL (3.8-10.6)
[2018-06-25 17:18] LABS: ALT 27 U/L (9-52); AST 23 U/L (14-36); Albumin 4.3 g/dL (3.5-5.0); Alkaline Phosphatase 98 U/L (38-126); Anion Gap 8 mmol/L; Blood Urea Nitrogen 19 mg/dL (7-17); Calcium 9.5 mg/dL (8.4-10.2); Carbon Dioxide 26 mmol/L (22-30); Chloride 108 mmol/L (98-107); Glucose 96 mg/dL (74-99); Magnesium 1.9 mg/dL (1.6-2.3); Sodium 142 mmol/L (137-145); Total Bilirubin 0.6 mg/dL (0.2-1.3); Total Protein 7.1 g/dL (6.3-8.2)
--- NOTE | 2018-06-25 17:21 | XR ---
EXAMINATION TYPE: XR chest 2V DATE OF EXAM: 06/25/2018 COMPARISON: 07/11/2017 HISTORY: Chest pain TECHNIQUE: Frontal and lateral views of the chest are obtained. FINDINGS: Heart and mediastinum are normal. Lungs are clear of infiltrate. Costophrenic angles are c lear. Bony thorax is intact. There are chest leads. IMPRESSION: Normal chest. No change.
[2018-06-25 17:26] LABS: D-Dimer 0.2 mg/L FEU (<0.60); INR 1.1 (<1.2); Partial Thromboplastin Time 33.7 sec (22.0-30.0); Prothrombin Time 11.3 sec (9.0-12.0)
[2018-06-25 17:27] LABS: Creatine Kinase 122 U/L (30-135)
[2018-06-25 17:37] VITALS: RESP 16
[2018-06-25 17:40] LABS: Creatine Kinase MB 1.6 ng/mL (0.0-2.4); Troponin I <0.012 ng/mL (0.000-0.034)
--- NOTE | 2018-06-25 17:41 | ED ---
Chest Pain HPI - General Chief Complaint: Chest Pain Stated Complaint: chest pain/headaches-sent by Dr. Mandel Time Seen by Provider: 06/25/18 16:23 Source: patient, RN notes reviewed Mode of arrival: ambulatory Limitations: no limitations - History of Present Illness Initial Comments: This is a 62-year-old female who presents with complaints of intermittent episodes of chest pain is also on her back for past one or 2 weeks also intermittent headaches he states his chest pain is sharp 8/10 severity headache is 10/10 he had night sweats last 2 nights no fevers or chills no cough or phlegm production no trauma reported no heavy lifting. Pain does get somewhat worse with certain movements and positional changes. No blurry vision no focal deficits head neck or back pain otherwise. MD Complaint: chest pain, other - Related Data Home Medications Medication Instructions Recorded Confirmed Cyclobenzaprine [Flexeril] 10 mg PO TID PRN 07/04/15 06/25/18 Metoprolol Succinate [Toprol XL] 50 mg PO HS 07/04/15 06/25/18 Omeprazole 20 mg PO DAILY 07/04/15 06/25/18 Pramipexole [Mirapex] 0.5 mg PO HS 07/04/15 06/25/18 Sertraline HCl 100 mg PO QAM 07/04/15 06/25/18 Acetaminophen-Codeine 300-30mg 1 tab PO QID PRN 07/11/17 06/25/18 [Tylenol w/codeine #3] Zolpidem [Ambien] 10 mg PO HS PRN 06/25/18 06/25/18 clonazePAM 0.5 mg PO TID PRN 06/25/18 06/25/18 Previous Rx's Medication Instructions Recorded Atorvastatin [Lipitor] 40 mg PO DAILY tab 07/12/17 Amoxicillin/Potassium Clav 1 tab PO Q12HR #20 tab 06/25/18 [Augmentin 875-125 Tablet] Ibuprofen 800 mg PO Q6HR PRN #20 tablet 06/25/18 guaiFENesin [Mucinex] 600 mg PO AC-BID #20 tab.er.12h 06/25/18 Allergies Allergy/AdvReac Type Severity Reaction Status Date / Time pumpkin Allergy Anaphylaxis Verified 06/25/18 16:32 Sulfa (Sulfonamide Allergy Rash/Hives Verified 06/25/18 16:32 Antibiotics) walnut Allergy Unknown Verified 06/25/18 16:32 Review of Systems ROS Statement: Those systems with pertinent positive or pertinent negative responses have been documented in the HPI. ROS Other: All systems not noted in ROS Statement are negative. EKG Findings - EKG Results: EKG: interpreted by MARIO ALBERTO BUIL, sinus rhythm, normal axis, normal QRS, normal ST/ T, no acute changes (Normal sinus rhythm 82. Interval 150 to QRS duration 80 QT since QTC 376/[address]-T wave changes) Past Medical History Past Medical History: Eye Disorder, GERD/Reflux, Hyperlipidemia, Hypertension, Musculoskeletal Disorder Additional Past Medical History / Comment(s): "Current really bad hemorrhoids." Hx hiatal hernia, chronic neck and back pain, cervical disc degeneration, restless leg syndrome, migraines, past endometriosis, right eye cataract. History of Any Multi-Drug Resistant Organisms: None Reported Past Surgical History: Appendectomy, Section, Cholecystectomy, Hysterectomy, Orthopedic Surgery Additional Past Surgical History / Comment(s): c-sect x3,rt knee arthroscopy x2 , heel spurs nahomy feet,laparoscopy (several), EGD, colonoscopy(several). Past Anesthesia/Blood Transfusion Reactions: Motion Sickness, Postoperative Nausea & Vomiting (PONV) Additional Past Anesthesia/Blood Transfusion Reaction / Comment(s): no blood transfusion. mild clausterphobia Past Psychological History: Anxiety Smoking Status: Former smoker Past Alcohol Use History: None Reported Past Drug Use History: None Reported - Past Family History Mother Additional Family Medical History / Comment(s): w/ sepsis after area removed from pancreas Father Family Medical History: Cancer Additional Family Medical History / Comment(s): stomach Brother(s) Family Medical History: Cancer Additional Family Medical History / Comment(s): colon- at age 52 Sister(s) Family Medical History: CVA/TIA Additional Family Medical History / Comment(s): cva- at age 55 General Exam - General Exam Comments Initial Comments: This is a well-developed well-nourished awake alert oriented 3 female Limitations: no limitations General appearance: alert, in no apparent distress Head exam: Present: atraumatic, normocephalic, normal inspection, other (No tenderness to percussion over the sinuses) Eye exam: Present: normal appearance, PERRL, EOMI. Absent: scleral icterus, conjunctival injection, periorbital swelling ENT exam: Present: mucous membranes moist, other (Boggy nasal mucosa) Neck exam: Present: normal inspection, full ROM, other (No stridor JVD or bruits ). Absent: tenderness, meningismus, lymphadenopathy Respiratory exam: Present: normal lung sounds bilaterally, chest wall tenderness (Reproducible tenderness palpation along the paraspinous muscles in the region of the scapula and the back also causes (tenderness palpation). Absent: respiratory distress, wheezes, rales, rhonchi, stridor Cardiovascular Exam: Present: regular rate, normal rhythm, normal heart sounds. Absent: systolic murmur, diastolic murmur, rubs, gallop, clicks GI/Abdominal exam: Present: soft, normal bowel sounds. Absent: distended, tenderness, guarding, rebound, rigid Extremities exam: Present: normal inspection, full ROM, normal capillary refill. Absent: tenderness, pedal edema, joint swelling, calf tenderness Back exam: Present: normal inspection Neurological exam: Present: alert, oriented X3, CN II-XII intact Psychiatric exam: Present: normal affect, normal mood Skin exam: Present: warm, dry, intact, normal color. Absent: rash Course Vital Signs 06/25/18 06/25/18 06/25/18 16:16 16:41 17:00 Temperature 98.2 F Pulse Rate 84 85 79 Respiratory 18 17 Rate Blood Pressure 157/87 162/95 O2 Sat by Pulse 96 97 Oximetry 06/25/18 06/25/18 17:30 19:45 Temperature Pulse Rate 79 77 Respiratory 16 16 Rate Blood Pressure 160/87 147/83 O2 Sat by Pulse 96 98 Oximetry Chest Pain MDM - MDM Patient did get some relief from her discomfort after medication was rendered the CAT scan was negative except for the sinusitis noted x-ray was negative for acute findings lab work and EKGs were within normal limits. The presentation is consistent with 2 things one is costochondritis #2 is headache secondary to sinusitis. Patient be placed on appropriate medication. Taking smaller doses of ibuprofen 2-400 mg she will be getting a prescription for 800 mg.00 Disposition Clinical Impression: Chest wall syndrome, Costalchondritis, Cephalgia, Sinusitis Disposition: HOME SELF-CARE Condition: Good Instructions (If sedation given, give patient instructions): Costochondritis ( ED), Sinusitis (ED) Prescriptions: Amoxicillin/Potassium Clav [Augmentin 875-125 Tablet] 1 tab PO Q12HR #20 tab guaiFENesin [Mucinex] 600 mg PO AC-BID #20 tab.er.12h Ibuprofen 800 mg PO Q6HR PRN #20 tablet PRN Reason: Pain Is patient prescribed a controlled substance at d/c from ED?: No Referrals: Darci Mandel MD [Primary Care Provider] - 1-2 days
[2018-06-25] MEDS ORDERED: KETOROLAC 30 MG/ML 1 ML VIAL IVP STA (17:55)
--- NOTE | 2018-06-25 18:32 | CT ---
EXAMINATION TYPE: CT brain wo con DATE OF EXAM: 06/25/2018 COMPARISON: None HISTORY: Pt c/o HTN, chest pain and headaches CT DLP: 1129.4 mGycm Automated exposure control for dose reduction was used. FINDINGS: Ventricles have normal size. There is no mass effect nor midline shift. There is no sign of intracran ial hemorrhage. The calvarium is intact. There is minimal mucosal thickening left maxillary sinus. IMPRESSION: NEGATIVE CT SCAN OF THE BRAIN. There is sphenoid and left maxillary sinusitis.
[2018-06-25] MEDS ORDERED: HYDROmorphone 1 MG/ML 1 ML SYRINGE IVP STA (19:31)
[2018-06-25] MEDS ORDERED: LORazepam 2 MG/ML INJ IV STA (19:32)
[2018-06-25] MEDS ORDERED: AMOXIC-POT CLAV 875-125MG 1 EACH TAB PO STA (20:09)
[2018-06-25 20:51] VITALS: BP 138/78; PULSE 70; TEMP 97.6
== END 2018-06-25 20:56 | disposition home or self-care (01) ==
LOC: EC 16:10
DX: M94.0 Chondrocostal junction syndrome [Tietze] (principal); J32.0 Chronic maxillary sinusitis; I10 Essential (primary) hypertension; K21.9 Gastro-esophageal reflux disease without esophagitis; G25.81 Restless legs syndrome; F41.9 Anxiety disorder, unspecified; Z87.891 Personal history of nicotine dependence; Z88.2 Allergy status to sulfonamides; Z91.018 Allergy to other foods; Z79.899 Other long term (current) drug therapy
CPT/HCPCS: 36415; 93005; 85379; 83880; 80053; 82550; 82553; 83735; 84484; 85025; 85610; 85730; 87502; 71046; 70450; 99285; 96374; 96375 ×2; J2060; J1885; J1170

== ENCOUNTER → 2019-03-02 | Outpatient (CLI) | payer OTHER ==
--- NOTE | 2019-03-02 14:38 | XR ---
EXAMINATION TYPE: XR lumbar spine 2 or 3V DATE OF EXAM: 03/02/2019 CLINICAL HISTORY: Low back pain TECHNIQUE: Frontal and lateral images of the lumbar spine are obtained. COMPARISON: 06/23/2013 FINDINGS: There is hemisacralization of the right L5 vertebral body. There are 5 lumbar type vertebr al bodies identified. The lumbar spine shows satisfactory alignment without evidence of acute fractu re or dislocation. Vertebral body heights are maintained. There is minimal anterolisthesis of L4 on L 5 and retrolisthesis of L1 on L2. Small anterior osteophytes are seen as well as multilevel facet art hropathy from L3 through S1. Bowel overlies the vertebral bodies limiting evaluation for osseous lesi on. There is slight dextroscoliotic curvature the lumbar spine on AP view. The overlying soft tissue appears unremarkable. Cholecystectomy clips are noted. Moderate degree colonic fecal stasis is noted in the visualized portions of the colon. IMPRESSION: 1. No acute fracture is seen in the lumbar spine. 2. Grade 1 anterolisthesis of L4 on L5 and minimal retrolisthesis of L1 on L2 are likely on a degener ative basis. 2. Mild multilevel degenerative disc disease of the lumbar spine.
== END | disposition home or self-care (01) ==
LOC: RADXRMAIN 14:21
PROVIDERS: ATTEND Emergency Medicine
DX: M43.16 Spondylolisthesis, lumbar region (principal); M51.36 Other intervertebral disc degeneration, lumbar region
CPT/HCPCS: 72100

== ENCOUNTER → 2019-03-18 | Outpatient (CLI) | payer OTHER ==
--- NOTE | 2019-03-18 11:12 | MR ---
EXAMINATION TYPE: MR lumbar spine wo con DATE OF EXAM: 03/18/2019 COMPARISON: X-ray 03/02/2019 HISTORY: Strain of muscle, fascia and tendon TECHNIQUE: T1 and T2 axial and sagittal images of the lumbar spine are submitted. FINDINGS: There is no abnormal signal seen within the visualized spinal cord or paraspinal soft tissu es. Could not exclude soft tissue lipomas within the posterior soft tissues At L1-2 there is degenerative disc disease. Very mild central disc bulging with mild effacement of th ecal sac. No Canal stenosis. Neural foramina patent. Hypertrophic change of the facets. At L2-3 there is facet hypertrophy ligamentum flavum hypertrophy and mild broad-based disc bulging. B orderline canal stenosis. Neural foramina patent. At L3-4 there is facet and ligamentum flavum hypertrophy. Broad-based central disc bulging. Neural fo ramina patent. No definite canal stenosis. At L4-5 there is degenerative disc disease with advanced facet arthropathy and ligamentum flavum isiah gency. There is moderate bilateral foraminal encroachment. No central canal stenosis. Slight anteroli sthesis L4 on L5. At L5-S1 there is facet arthropathy but no disc herniation or canal stenosis. Neural foramina remain patent IMPRESSION: 1. Multilevel degenerative disc disease with most marked findings at L4-5 and L5-S1. Grade 1 anteroli sthesis L4 on L5 appears degenerative with advanced facet arthropathy. Moderate bilateral foraminal e ncroachment and mild canal stenosis at L4-L5. 2. Multilevel facet arthropathy. Multilevel mild central disc bulging seen with borderline canal sten osis L2-L3 3. There is prominence of the extrahepatic common bile duct which correlate clinically for history of previous cholecystectomy otherwise consider CT scan of the abdomen.
== END ==
LOC: RADMRIMAIN 09:46
DX: M48.061 Spinal stenosis, lumbar region without neurogenic claudication (principal); M43.16 Spondylolisthesis, lumbar region; M51.26 Other intervertebral disc displacement, lumbar region; M51.36 Other intervertebral disc degeneration, lumbar region; M51.37 Other intervertebral disc degeneration, lumbosacral region; M46.96 Unspecified inflammatory spondylopathy, lumbar region; Z90.49 Acquired absence of other specified parts of digestive tract
CPT/HCPCS: 72148

== ENCOUNTER 2019-10-07 13:54 | Inpatient (IN) | payer BC, OTHER ==
[2019-10-07] MEDS ORDERED: ASPIRIN 81 MG PO STA (14:24)
--- NOTE | 2019-10-07 14:26 | ED ---
General Adult HPI - General Chief complaint: Shortness of Breath Stated complaint: SOB/cough Time Seen by Provider: 10/07/19 14:00 Source: patient Mode of arrival: ambulatory Limitations: no limitations - History of Present Illness Initial comments: Patient is a 63-year-old female with history of unstable angina presenting to emergency Department with a chief complaint of cough and shortness of breath. States symptoms began about 4 months ago. States they started simultaneously. States she is not able to take a full, deep breath. States the cough is nonproductive. States like she "can't fully cough it out". States she does get occasional wheezing but not currently. Patient also reports developing some chest pressure that is midsternal and he feels like heaviness without any radiation. This started about one week ago. Patient denies any diaphoretic episodes, lightheaded and is, dizziness, headaches, visual changes, one-sided weakness or paresthesias. States she went to see her primary care who gave her a steroid injection and discharge her with a steroid taper. Patient reports no improvement of symptoms. Denies any night sweats fevers or chills. Denies any direct exposure to any known Covid patient. Patient denies smoking or history of asthma. States she does have a history of hyperlipidemia and hypertension. Denies changes to smell or taste - Related Data Home Medications Medication Instructions Recorded Confirmed Cyclobenzaprine [Flexeril] 10 mg PO TID PRN 07/04/15 06/25/18 Metoprolol Succinate [Toprol XL] 50 mg PO HS 07/04/15 06/25/18 Omeprazole 20 mg PO DAILY 07/04/15 06/25/18 Pramipexole [Mirapex] 0.5 mg PO HS 07/04/15 06/25/18 Sertraline HCl 100 mg PO QAM 07/04/15 06/25/18 Acetaminophen-Codeine 300-30mg 1 tab PO QID PRN 07/11/17 06/25/18 [Tylenol w/codeine #3] Zolpidem [Ambien] 10 mg PO HS PRN 06/25/18 06/25/18 clonazePAM 0.5 mg PO TID PRN 06/25/18 06/25/18 Previous Rx's Medication Instructions Recorded Atorvastatin [Lipitor] 40 mg PO DAILY tab 07/12/17 Amoxicillin/Potassium Clav 1 tab PO Q12HR #20 tab 06/25/18 [Augmentin 875-125 Tablet] Ibuprofen 800 mg PO Q6HR PRN #20 tablet 06/25/18 guaiFENesin [Mucinex] 600 mg PO AC-BID #20 tab.er.12h 06/25/18 Allergies Allergy/AdvReac Type Severity Reaction Status Date / Time pumpkin Allergy Anaphylaxis Verified 10/07/19 13:58 Sulfa (Sulfonamide Allergy Rash/Hives Verified 10/07/19 13:58 Antibiotics) walnut Allergy Unknown Verified 10/07/19 13:58 Review of Systems ROS Statement: Those systems with pertinent positive or pertinent negative responses have been documented in the HPI. ROS Other: All systems not noted in ROS Statement are negative. Past Medical History Past Medical History: Eye Disorder, GERD/Reflux, Hyperlipidemia, Hypertension, Musculoskeletal Disorder Additional Past Medical History / Comment(s): "Current really bad hemorrhoids." Hx hiatal hernia, chronic neck and back pain, cervical disc degeneration, restless leg syndrome, migraines, past endometriosis, right eye cataract. History of Any Multi-Drug Resistant Organisms: None Reported Past Surgical History: Appendectomy, Section, Cholecystectomy, Hysterectomy, Orthopedic Surgery Additional Past Surgical History / Comment(s): c-sect x3,rt knee arthroscopy x2, heel spurs nahomy feet,laparoscopy (several), EGD, colonoscopy(several). Past Anesthesia/Blood Transfusion Reactions: Motion Sickness, Postoperative Nausea & Vomiting (PONV) Additional Past Anesthesia/Blood Transfusion Reaction / Comment(s): no blood transfusion. mild clausterphobia Past Psychological History: Anxiety Smoking Status: Former smoker Past Alcohol Use History: None Reported Past Drug Use History: None Reported - Past Family History Mother Additional Family Medical History / Comment(s): w/ sepsis after area removed from pancreas Father Family Medical History: Cancer Additional Family Medical History / Comment(s): stomach Brother(s) Family Medical History: Cancer Additional Family Medical History / Comment(s): colon- at age 52 Sister(s) Family Medical History: CVA/TIA Additional Family Medical History / Comment(s): cva- at age 55 General Exam Limitations: no limitations General appearance: alert, in no apparent distress Head exam: Present: atraumatic, normocephalic, normal inspection Eye exam: Present: normal appearance, PERRL, EOMI Pupils: Present: normal accommodation ENT exam: Present: normal exam, normal oropharynx, mucous membranes moist, TM's normal bilaterally, normal external ear exam Neck exam: Present: normal inspection, full ROM Respiratory exam: Present: normal lung sounds bilaterally. Absent: respiratory distress, wheezes, rales, rhonchi, stridor, chest wall tenderness Cardiovascular Exam: Present: regular rate, normal rhythm, normal heart sounds Extremities exam: Present: normal inspection, full ROM Back exam: Present: normal inspection, full ROM Neurological exam: Present: alert, oriented X3 Psychiatric exam: Present: normal affect, normal mood Skin exam: Present: warm, dry, intact, normal color Course Vital Signs 10/07/19 13:55 Temperature 98.5 F Pulse Rate 88 Respiratory 20 Rate Blood Pressure 166/94 O2 Sat by Pulse 95 Oximetry Medical Decision Making - Lab Data Result diagrams: 10/07/19 14:24 10/07/19 14:24 Lab Results 10/07/19 10/07/19 10/07/19 Range/Units 14:24 14:24 14:24 WBC 16.6 H (3.8-10.6) k/uL RBC 4.78 (3.80-5.40) m/uL Hgb 12.2 (11.4-16.0) gm/dL Hct 38.9 (34.0-46.0) % MCV 81.3 (80.0-100.0) fL MCH 25.4 (25.0-35.0) pg MCHC 31.3 (31.0-37.0) g/dL RDW 15.0 (11.5-15.5) % Plt Count 300 (150-450) k/uL Neutrophils % 83 % Lymphocytes % 13 % Monocytes % 4 % Eosinophils % 0 % Basophils % 0 % Neutrophils # 13.7 H (1.3-7.7) k/uL Lymphocytes # 2.1 (1.0-4.8) k/uL Monocytes # 0.6 (0-1.0) k/uL Eosinophils # 0.0 (0-0.7) k/uL Basophils # 0.0 (0-0.2) k/uL Hypochromasia Slight PT 10.2 (9.0-12.0) sec INR 1.0 (<1.2) APTT 29.2 (22.0-30.0) sec D-Dimer <0.17 (<0.60) mg/L FEU Sodium 140 (137-145) mmol/L Potassium 4.4 (3.5-5.1) mmol/L Chloride 108 H (98-107) mmol/L Carbon Dioxide 23 (22-30) mmol/L Anion Gap 9 mmol/L BUN 17 (7-17) mg/dL Creatinine 0.69 (0.52-1.04) mg/dL Est GFR (CKD-EPI)AfAm >90 (>60 ml/min/1.73 sqM) Est GFR (CKD-EPI)NonAf >90 (>60 ml/min/1.73 sqM) Glucose 116 H (74-99) mg/dL Calcium 9.8 (8.4-10.2) mg/dL Magnesium 1.9 (1.6-2.3) mg/dL Total Bilirubin 0.3 (0.2-1.3) mg/dL AST 24 (14-36) U/L ALT 22 (4-34) U/L Alkaline Phosphatase 103 (38-126) U/L Troponin I (0.000-0.034) ng/mL Total Protein 7.9 (6.3-8.2) g/dL Albumin 4.8 (3.5-5.0) g/dL 10/07/19 Range/Units 14:24 WBC (3.8-10.6) k/uL RBC (3.80-5.40) m/uL Hgb (11.4-16.0) gm/dL Hct (34.0-46.0) % MCV (80.0-100.0) fL MCH (25.0-35.0) pg MCHC (31.0-37.0) g/dL RDW (11.5-15.5) % Plt Count (150-450) k/uL Neutrophils % % Lymphocytes % % Monocytes % % Eosinophils % % Basophils % % Neutrophils # (1.3-7.7) k/uL Lymphocytes # (1.0-4.8) k/uL Monocytes # (0-1.0) k/uL Eosinophils # (0-0.7) k/uL Basophils # (0-0.2) k/uL Hypochromasia PT (9.0-12.0) sec INR (<1.2) APTT (22.0-30.0) sec D-Dimer (<0.60) mg/L FEU Sodium (137-145) mmol/L Potassium (3.5-5.1) mmol/L Chloride (98-107) mmol/L Carbon Dioxide (22-30) mmol/L Anion Gap mmol/L BUN (7-17) mg/dL Creatinine (0.52-1.04) mg/dL Est GFR (CKD-EPI)AfAm (>60 ml/min/1.73 sqM) Est GFR (CKD-EPI)NonAf (>60 ml/min/1.73 sqM) Glucose (74-99) mg/dL Calcium (8.4-10.2) mg/dL Magnesium (1.6-2.3) mg/dL Total Bilirubin (0.2-1.3) mg/dL AST (14-36) U/L ALT (4-34) U/L Alkaline Phosphatase (38-126) U/L Troponin I <0.012 (0.000-0.034) ng/mL Total Protein (6.3-8.2) g/dL Albumin (3.5-5.0) g/dL Disposition Clinical Impression: Shortness of breath, Chest pain, Prolonged QT interval, Cough Disposition: ADMITTED IP TO THIS [facility] Condition: Stable Instructions (If sedation given, give patient instructions): Asthma (ED) Additional Instructions: Patient will be admitted Is patient prescribed a controlled substance at d/c from ED?: No Referrals: Rossi Lee MD [Primary Care Provider] - 1-2 days Time of Disposition: 16:31
[2019-10-07 14:45] LABS: Basophils % (A) 0 %; Eosinophils % (A) 0 %; HCT 38.9 % (34.0-46.0); HGB 12.2 gm/dL (11.4-16.0); Hypochromasia Slight; Lymphocytes # (A) 2.1 k/uL (1.0-4.8); Lymphocytes % (A) 13 %; MCH 25.4 pg (25.0-35.0); MCHC 31.3 g/dL (31.0-37.0); MCV 81.3 fL (80.0-100.0); Mean Platelet Volume 7.4; Monocytes # (A) 0.6 k/uL (0-1.0); Monocytes % (A) 4 %; Neutrophils # (A) 13.7 k/uL (1.3-7.7); Neutrophils % (A) 83 %; Platelet Count 300 k/uL (150-450); RBC 4.78 m/uL (3.80-5.40); WBC 16.6 k/uL (3.8-10.6)
[2019-10-07 14:56] LABS: ALT 22 U/L (4-34); AST 24 U/L (14-36); African American GFR (CKD) >90 (>60 ml/min/1.73 sqM); Albumin 4.8 g/dL (3.5-5.0); Alkaline Phosphatase 103 U/L (38-126); Anion Gap 9 mmol/L; Blood Urea Nitrogen 17 mg/dL (7-17); Calcium 9.8 mg/dL (8.4-10.2); Carbon Dioxide 23 mmol/L (22-30); Chloride 108 mmol/L (98-107); Glucose 116 mg/dL (74-99); Magnesium 1.9 mg/dL (1.6-2.3); Non-African American GFR(CKD) >90 (>60 ml/min/1.73 sqM); Potassium 4.4 mmol/L (3.5-5.1); Sodium 140 mmol/L (137-145); Total Bilirubin 0.3 mg/dL (0.2-1.3); Total Protein 7.9 g/dL (6.3-8.2)
--- NOTE | 2019-10-07 14:58 | XR ---
EXAMINATION TYPE: XR chest 2V DATE OF EXAM: 10/07/2019 COMPARISON: 06/25/2018 INDICATION: Cough, shortness of breath TECHNIQUE: Frontal and lateral views of the chest are obtained. FINDINGS: The heart size is normal. The pulmonary vasculature is normal. The lungs are clear. IMPRESSION: 1. No acute pulmonary process.
[2019-10-07 15:37] LABS: D-Dimer <0.17 mg/L FEU (<0.60); Partial Thromboplastin Time 29.2 sec (22.0-30.0); Prothrombin Time 10.2 sec (9.0-12.0)
[2019-10-07] MEDS ORDERED: BENZONATATE 100 MG CAP PO STA (16:22)
[2019-10-07] MEDS ORDERED: guaiFENesin-DM 100-10MG/5ML 10 ML CUP PO STA (16:27)
[2019-10-07] MEDS: METOPROLOL TARTRATE 50 MG TAB PO SCH (20:28)
[2019-10-07] MEDS: CYCLOBENZAPRINE 10 MG TAB PO SCH (20:28)
[2019-10-07] MEDS: PRAMIPEXOLE 0.5 MG TAB PO SCH (20:28)
[2019-10-07] MEDS: Acetaminophen-Codeine 300-30mg TAB PO PRN (20:29)
[2019-10-07] MEDS: ZOLPIDEM 5 MG TAB PO PRN (22:21)
[2019-10-07] MEDS: BENZONATATE 100 MG CAP PO PRN (22:21)
[2019-10-07] MEDS: guaiFENesin-DM 100-10MG/5ML 10 ML CUP PO PRN (22:52)
[2019-10-08 02:58] LABS: Cholesterol 149 mg/dL (<200); HDL Cholesterol 42 mg/dL (40-60); LDL Cholesterol,Calculated 78 mg/dL (0-99); Triglycerides 147 mg/dL (<150)
[2019-10-08] MEDS: Acetaminophen-Codeine 300-30mg TAB PO PRN ×3 (05:34→20:20)
[2019-10-08] MEDS: BENZONATATE 100 MG CAP PO PRN ×3 (05:35→21:42)
[2019-10-08] MEDS: guaiFENesin-DM 100-10MG/5ML 10 ML CUP PO PRN ×3 (05:35→21:43)
[2019-10-08] MEDS ORDERED: ASPIRIN 325 MG TAB PO SCH (09:00)
[2019-10-08] MEDS: CYCLOBENZAPRINE 10 MG TAB PO SCH ×3 (11:35→20:20)
[2019-10-08] MEDS: METOPROLOL TARTRATE 50 MG TAB PO SCH ×2 (11:35→20:20)
[2019-10-08] MEDS: SERTRALINE 100 MG TAB PO SCH (12:14)
[2019-10-08] MEDS: PANTOPRAZOLE 40 MG TABLET PO SCH (12:14)
[2019-10-08] MEDS ORDERED: AZITHROMYCIN 500 MG TAB PO SCH (15:45)
--- NOTE | 2019-10-08 15:47 | CONS ---
WESTLEY Su is a 63-year-old lady with history of hypertension who is admitted to the hospital with shortness of breath. Her predominant symptom is profound cough. She is continuously coughing and has mild productive sputum. She states that her symptoms have been going on since May of this year and have gotten worse of late. She has twice been tested for COVID and apparently was negative and she has been tested again on this admission and the results are pending. I have been asked to see her because of chest discomfort. To me, her chest pain sounds musculoskeletal from recurrent coughing. She does not have any exertional chest pain. There is no history of leg edema, palpitations, dizziness or syncope. She does not have any history of coronary artery disease or congestive heart failure. CURRENT MEDICATIONS: Include prednisone, clonazepam, Ambien, Mirapex, Lopressor 100 b.i.d., Zestril, Flexeril, Lipitor and albuterol. The patient is allergic to PUMPKIN, SULFA, and WALNUT. FAMILY HISTORY: Negative for premature coronary artery disease. SOCIAL HISTORY: Negative for smoking, EtOH abuse, or drug abuse. REVIEW OF SYSTEMS: HEENT: Unremarkable. CARDIAC: As described above. RESPIRATORY: As described above. GI: Negative. GENITOURINARY: Negative. ALLERGY/IMMUNOLOGY: Negative. SKIN: Negative. ENDOCRINE: Negative. DERM: Negative. CONSTITUTIONAL: Negative. ONCOLOGICAL: Negative. UNDERTAKER ASSISTANT: Negative. Rest of the system review is not relevant. PHYSICAL EXAM: She is afebrile. Heart rate is 80 beats per minute. Blood pressure is 123/70, respiratory rate is 16, O2 saturation is 99% on 2 L. The detailed physical exam has not been performed as the COVID is still pending at this time to preserve personal protective equipment. I reviewed her physical exam from the emergency room. Patient apparently did not have any wheezes. Heart exam was normal. ASSESSMENT: 1. Atypical chest pain, probably related to recurrent coughing. 2. Hypertension. 3. Dyslipidemia. 4. Recurrent cough going on for the last several months, suggestive of bronchitis. PLAN: I am going to obtain a 2D echo to assess LV function and wall motion. If this looks normal, she does not require evaluation for chest pain at this time. I will consider doing a stress test on her in the outpatient setting when she is more stable. MMODL / IJN: [id number] /
[2019-10-08] MEDS: methylPREDNISolone SOD SUCCI 40 MG/ML 1 ML VIAL IV SCH ×2 (16:19→22:55)
[2019-10-08] MEDS: IPRATROPIUM-ALBUTEROL 3 ML NEB INHALATION PRN (19:05)
[2019-10-08] MEDS: PRAMIPEXOLE 0.5 MG TAB PO SCH (20:20)
[2019-10-08 20:28] LABS: Glucose,Whole Blood 149 mg/dL (75-99)
--- NOTE | 2019-10-08 22:10 | P.HPIM ---
History of Present Illness H&P Date: 10/08/19 Chief Complaint: Chest Pressure Patient is a 64-year-old female with a known history of hypertension, GERD, chronic back pain and neck pain and cervical disc degenerative disease as well as restless syndrome and anxiety and previous smoking came to ER with the comp laints of cough and shortness of breath. Patient states that she has been having cough and shortness of breath for the past 4 months. Started in mid May. Patient was seen by her primary care physician and was started on Z- Alli. Symptoms did not resolve completely. She was also tested for COVID-19 twice. During June and July patient was not able to follow-up with her physician. Patient was again seen by her physician recently and was given Medrol Dosepak which she recently completed. She was also given IM antibiotic injection at that time. Cough is mainly nonproductive. Patient states that she cannot completely cough without. Denies any fever or chills. Occasional wheezing. Yesterday morning patient had chest discomfort along with cough. Chest discomfort mainly midster nal and heaviness without any radiation. No associated nausea vomiting or diaphoresis. Denies any dizziness or lightheadedness. No headache or visual changes. Denied any recent smoking. Denied any leg swelling. Chest x-ray showed no acute cardiopulmonary process. EKG showed normal sinus rhythm with prolonged QT interval. Laboratory data showed WBC 16.6, hemoglobin 12.2 and platelets 300 neutrophils 13.3, absolute. D-dimer less than 0.17 Sodium 140 potassium 4.4 and chloride 108 BUN 17 and creatinine 0.69 blood sugar is 116 Troponin x3- LDL 149 COVID-19 PCR negative. Patient is currently saturating at 96% on room air. Patient is afebrile. Past Medical History Past Medical History: Eye Disorder, GERD/Reflux, Hyperlipidemia, Hypertension, Musculoskeletal Disorder Additional Past Medical History / Comment(s): "Current hemorrhoids." Hx hiatal hernia, chronic neck and back pain, cervical disc degeneration, restless leg syndrome, migraines, past endometriosis, right eye cataract. History of Any Multi-Drug Resistant Organisms: None Reported Past Surgical History: Appendectomy, Section, Cholecystectomy, Hysterectomy, Orthopedic Surgery Additional Past Surgical History / Comment(s): c-sect x3,rt knee arthroscopy x2, heel spurs nahomy feet,laparoscopy (several), EGD, colonoscopy(several). Past Anesthesia/Blood Transfusion Reactions: No Reported Reaction Additional Past Anesthesia/Blood Transfusion Reaction / Comment(s): no blood transfusion. mild clausterphobia Past Psychological History: Anxiety Smoking Status: Former smoker Past Alcohol Use History: None Reported Additional Past Alcohol Use History / Comment(s): started smoking 1972 quit smoking 1979,smoked <1ppd Past Drug Use History: None Reported - Past Family History Mother Additional Family Medical History / Comment(s): w/ sepsis after area removed from pancreas Father Family Medical History: Cancer Additional Family Medical History / Comment(s): stomach Brother(s) Family Medical History: Cancer Additional Family Medical History / Comment(s): colon- at age 52 Sister(s) Family Medical History: CVA/TIA Additional Family Medical History / Comment(s): cva- at age 55 Medications and Allergies Home Medications Medication Instructions Recorded Confirmed Type Cyclobenzaprine [Flexeril] 10 mg PO TID 07/04/15 10/07/19 History Omeprazole 20 mg PO DAILY 07/04/15 10/07/19 History Pramipexole [Mirapex] 0.5 mg PO HS 07/04/15 10/07/19 History Sertraline HCl 100 mg PO DAILY 07/04/15 10/07/19 History Acetaminophen-Codeine 300-30mg 1 tab PO Q8H PRN 07/11/17 10/07/19 History [Tylenol w/codeine #3] Atorvastatin [Lipitor] 40 mg PO DAILY tab 07/12/17 10/07/19 Rx clonazePAM 0.5 mg PO TID PRN 06/25/18 10/07/19 History Albuterol Inhaler [Ventolin Hfa 2 puff INHALATION RT-Q4H PRN 10/07/19 10/07/19 History Inhaler] Lisinopril [Zestril] 10 mg PO DAILY 10/07/19 10/07/19 History Metoprolol Tartrate [Lopressor] 100 mg PO BID 10/07/19 10/07/19 History Zolpidem Tartrate [Ambien] 5 mg PO HS PRN 10/07/19 10/07/19 History predniSONE [Deltasone] See Taper PO DIRECTED 10/07/19 10/07/19 History Allergies Allergy/AdvReac Type Severity Reaction Status Date / Time pumpkin Allergy Anaphylaxis Verified 10/07/19 17:44 Sulfa (Sulfonamide Allergy Rash/Hives Verified 10/07/19 17:44 Antibiotics) walnut Allergy Unknown Verified 10/07/19 17:44 Physical Exam Vitals: Vital Signs Temp Pulse Pulse Resp BP BP Pulse Ox 10/08/19 12:00 98.1 F 83 16 138/72 98 10/08/19 07:55 97.8 F 80 16 123/76 98 10/08/19 03:20 97.9 F 78 16 131/71 99 10/07/19 23:18 78 16 131/74 98 10/07/19 19:38 97.7 F 88 16 140/68 97 10/07/19 18:22 98.2 F 10/07/19 17:35 71 183/90 98 10/07/19 17:00 77 17 146/72 100 10/07/19 16:30 82 23 137/96 99 10/07/19 16:00 70 11 L 126/79 99 Intake and Output 10/08/19 10/08/19 10/08/19 06:59 14:59 22:59 Other: # Voids 1 2 1 Weight 88.6 kg Results CBC & Chem 7: 10/07/19 14:24 10/07/19 14:24 Thrombosis Risk Factor Assmnt - Choose All That Apply Each Factor Represents 1 point: Obesity (BMI >25) Each Risk Factor Represents 2 Points: Age 61-74 years Thrombosis Risk Factor Assessment Total Risk Factor Score: 3 Thrombosis Risk Factor Assessment Level: Moderate Risk Assessment and Plan Assessment: Chest heaviness along with cough. Likely musculoskeletal. Ruled out ACS. Prolonged QT interval. acute tracheobronchitis and bronchospasm Possible underlying COPD with history of smoking. Worsening dry cough and shortness of breath. Hypertension Hyperlipidemia GERD Chronic neck pain and back pain and cervical disc degeneration Restless leg syndrome Migraine headaches Anxiety Previous history of smoking quit in 1979 DVT prophylaxis with heparin subcu Plan: Patient will be continued on telemetry monitoring. Serial EKG and troponin x3-. Patient was seen by cardiology and 2D echocardiogram was ordered. Patient will be started IV steroids and antibiotics in the form of ceftriaxone and doxy. Will avoid azithromycin due to prolonged QT interval. Continue with breathing treatments and follow-up closely. Further recommendations based on clinical course. Time with Patient: Greater than 30
[2019-10-08] MEDS: DOXYCYCLINE 100 MG CAP PO SCH (22:55)
[2019-10-08] MEDS: HEPARIN SODIUM,PORCINE 5,000 UNIT/ML 1 ML VIAL SQ SCH (22:55)
[2019-10-08] MEDS: ZOLPIDEM 5 MG TAB PO PRN (22:55)
[2019-10-09] MEDS: Acetaminophen-Codeine 300-30mg TAB PO PRN ×3 (05:09→22:48)
[2019-10-09] MEDS: PANTOPRAZOLE 40 MG TABLET PO SCH (05:09)
[2019-10-09 06:04] LABS: Glucose,Whole Blood 159 mg/dL (75-99)
[2019-10-09] MEDS: INSULIN ASPART (NovoLOG) 100 UNIT/ML VIAL SQ SCH ×4 (06:04→21:14)
[2019-10-09 07:08] LABS: Basophils % (A) 0 %; Eosinophils # (A) 0.1 k/uL (0-0.7); Eosinophils % (A) 1 %; HCT 39.6 % (34.0-46.0); HGB 12.6 gm/dL (11.4-16.0); Hypochromasia Moderate; Lymphocytes # (A) 1.1 k/uL (1.0-4.8); Lymphocytes % (A) 10 %; MCH 26.4 pg (25.0-35.0); MCHC 31.7 g/dL (31.0-37.0); MCV 83.3 fL (80.0-100.0); Mean Platelet Volume 7.8; Monocytes # (A) 0.3 k/uL (0-1.0); Monocytes % (A) 3 %; Neutrophils % (A) 86 %; Platelet Count 253 k/uL (150-450); RBC 4.75 m/uL (3.80-5.40); RDW 14.9 % (11.5-15.5); WBC 10.4 k/uL (3.8-10.6)
--- NOTE | 2019-10-09 07:23 | ECHOF ---
Referral Reason:sob MEASUREMENTS -------- HEIGHT: 167.6 cm WEIGHT: 88.5 kg BP: RVIDd: 3.2 cm (< 3.3) IVSd: 1.2 cm (0.6 - 1.1) LVIDd: 3.9 cm (3.9 - 5.3) LVPWd: 1.2 cm (0.6 - 1.1) IVSs: 1.7 cm LVIDs: 2.3 cm LVPWs: 1.9 cm LA Diam: 2.8 cm (2.7 - 3.8) Ao Diam: 3.0 cm (2.0 - 3.7) AV Cusp: 2.0 cm (1.5 - 2.6) MV EXCURSION: 17.614 mm (> 18.000) MV EF SLOPE: 85 mm/s (70 - 150) EPSS: 0.3 cm MV E Baron: 0.63 m/s MV DecT: 237 ms MV A Baron: 0.86 m/s MV E/A Ratio: 0.74 RAP: 5.00 mmHg RVSP: 24.79 mmHg FINDINGS -------- Sinus rhythm. This was a technically adequate study. The left ventricular size is normal. There is borderline concentric left ventricular hypertrophy. Overall left ventricular systolic function is normal with, an EF between 55 - 60 %. The right ventricle is normal in size. The left atrial size is normal. The right atrium is normal in size. Aneurysmal Interatrial septum. The aortic valve is trileaflet and appears structurally normal. The mitral valve is normal. Mild tricuspid regurgitation present. Right ventricular systolic pressure is normal at < 35 mmHg. Trace/mild (physiologic) pulmonic regurgitation. The aortic root size is normal. Normal inferior vena cava with normal inspiratory collapse consistent with estimated right atrial pre ssure of 5 mmHg. There is no pericardial effusion. CONCLUSIONS -------- 1. Sinus rhythm. 2. This was a technically adequate study. 3. The left ventricular size is normal. 4. There is borderline concentric left ventricular hypertrophy. 5. Overall left ventricular systolic function is normal with, an EF between 55 - 60 %. 6. The right ventricle is normal in size. 7. The left atrial size is normal. 8. The right atrium is normal in size. 9. Aneurysmal Interatrial septum. 10. The aortic valve is trileaflet and appears structurally normal. 11. The mitral valve is normal. 12. Mild tricuspid regurgitation present. 13. Right ventricular systolic pressure is normal at < 35 mmHg. 14. Trace/mild (physiologic) pulmonic regurgitation. 15. The aortic root size is normal. 16. Normal inferior vena cava with normal inspiratory collapse consistent with estimated right atrial pressure of 5 mmHg. 17. There is no pericardial effusion. CUTTING TOOL SHARPENER: Naida Presley RDCS
[2019-10-09 07:32] LABS: African American GFR (CKD) >90 (>60 ml/min/1.73 sqM); Anion Gap 9 mmol/L; Blood Urea Nitrogen 22 mg/dL (7-17); Calcium 9.4 mg/dL (8.4-10.2); Carbon Dioxide 24 mmol/L (22-30); Chloride 104 mmol/L (98-107); Glucose 145 mg/dL (74-99); Non-African American GFR(CKD) >90 (>60 ml/min/1.73 sqM); Potassium 4.6 mmol/L (3.5-5.1); Sodium 137 mmol/L (137-145)
--- NOTE | 2019-10-09 07:47 | P.PN ---
Subjective Principal diagnosis: Patient admitted with incessant coughing and atypical chest discomfort likely related to recurrent and a sense of coughing, seen by Dr. Ty yesterday History of hypertension dyslipidemia Recurrent bronchitis with serial negative covid tests Labs from yesterday were reviewed white count is normal lymphocytes are minimally elevated LDL 78 2 troponins are normal Coronavirus PCR nondetectable Normal liver function normal renal function D-dimer normal Twelve-lead ECG shows sinus rhythm 92 beats a minute and nonspecific ST-T abnormalities No abnormalities noted on chest x-ray On examination blood pressure 134/83 mmHg pulse rate in the 70s and 80s normal respirations nonlabored breathing Patient is coughing Examination is normal lungs are clear Normal heart sounds No edema Impression Chest discomfort with coughing only 2-D echo shows preserved LV size and systolic function Pericardium is normal Mild LVH him a history of hypertension Dyslipidemia From a cardiac standpoint she needs to be treated for bronchitis and the pain medications for pain associated with coughing This does not appear to be cardiac at this time and she may go home from a cardiac standpoint and follow up with Dr. Ty Control blood pressure and management of dyslipidemia Thank you for the consultation Objective - Vital Signs Vital signs: Vital Signs Temp 98.3 F 10/08/19 20:00 Pulse 82 10/09/19 04:00 Resp 16 10/09/19 04:00 BP 134/83 10/09/19 04:00 Pulse Ox 98 10/09/19 04:00 Intake & Output 10/08/19 10/09/19 10/09/19 18:59 06:59 18:59 Weight 88 kg Other: # Voids 1 1 - Labs CBC & Chem 7: 10/09/19 06:55 10/09/19 06:55 Labs: Abnormal Lab Results - Last 24 Hours (Table) 10/08/19 10/09/19 10/09/19 Range/Units 20:28 06:03 06:55 Neutrophils # 9.0 H (1.3-7.7) k/uL POC Glucose (mg/dL) 149 H 159 H (75-99) mg/dL
[2019-10-09] MEDS: METOPROLOL TARTRATE 50 MG TAB PO SCH ×2 (08:26→20:04)
[2019-10-09] MEDS: ATORVASTATIN 40 MG TAB PO SCH (08:27)
[2019-10-09] MEDS: CYCLOBENZAPRINE 10 MG TAB PO SCH ×3 (08:27→20:05)
[2019-10-09] MEDS: BENZONATATE 100 MG CAP PO PRN ×2 (08:27→22:48)
[2019-10-09] MEDS: ASPIRIN 81 MG PO SCH (08:27)
[2019-10-09] MEDS: SERTRALINE 100 MG TAB PO SCH (08:27)
[2019-10-09] MEDS: HEPARIN SODIUM,PORCINE 5,000 UNIT/ML 1 ML VIAL SQ SCH ×2 (08:28→15:24)
[2019-10-09] MEDS: methylPREDNISolone SOD SUCCI 40 MG/ML 1 ML VIAL IV SCH (08:28)
[2019-10-09] MEDS: DOXYCYCLINE 100 MG CAP PO SCH ×2 (08:28→20:04)
[2019-10-09] MEDS: IPRATROPIUM-ALBUTEROL 3 ML NEB INHALATION PRN ×2 (08:51→19:43)
[2019-10-09] MEDS ORDERED: LISINOPRIL 10 MG TAB PO SCH (09:00)
[2019-10-09 12:27] LABS: Glucose,Whole Blood 119 mg/dL (75-99)
--- NOTE | 2019-10-09 14:15 | P.CNPUL ---
History of Present Illness Consult date: 10/09/19 Requesting physician: Tucker Ivory Reason for consult: cough Chief complaint: Chronic cough History of present illness: This is a 63-year-old female, remote smoking history, quit smoking over 40 years ago. Patient is not known to have any history of COPD, not known to have any history of bronchial asthma. She is known however to have history of severe GERD and hiatal hernia. And she is also known to have history of hypertension, entertained on metoprolol and lisinopril for hypertension. Patient was admitted this time with 5 months history of cough. Cough is described as nonproductive cough, not associated with any wheezing. However it is associated with chest pain, sternal and parasternal chest wall pain upon coughing. Has been treated by her primary care physician with antibiotics, and steroids, did not seem to help her symptoms. She saw her primary care physician recently, and she recommended to go to the ER if she didn't improve with Medrol Dosepak. Patient was admitted on 10/07/19, chest x-ray showed no evidence of active disease. Her d-dimer was normal. Patient was seen by cardiology on consultation, and felt that her cough was musculoskeletal atypical in nature. Hence no further diagnostic cardiac workup was recommended. Today I was asked to see the patient on consultation for her chronic cough which I believe it is mostly secondary to lisinopril, it is also secondary to poorly controlled GERD. Patient denies any symptoms of ALLERGIC rhinitis, denies any postnasal drip symptoms. Again her cough is dry hacking cough. Not associated with any fever or chills or hemoptysis. Patient was tested for mcnair virus PCR, and she was told it was negative. This was done by her primary care physician. Her labs today were all reviewed, she had a relatively normal CBC. Normal d-dimer. Normal basic metabolic profile. Normal renal profile. And normal troponins. Review of Systems Constitutional: Denies fever chills or weight loss. Abdomen: Denies nausea vomiting, but she does have history of GERD, supposedly controlled with omeprazole, and she takes it on a daily basis. Pulmonary: As noted in HPI, mostly chronic cough. And chest pain seems to be chest wall pain. Cardiovascular: Denies any orthopnea or PND, syncope, or palpitations. Neurologic: Denies headache blurred vision dizziness syncope. Musculoskeletal: Denies any limitation in range of motion, denies any arthralgia or myalgia. Skin: Negative, denies any rashes. Psychiatric: Negative denies any symptoms of generalized anxiety or depression. Endocrine denies heat or cold intolerance, however she did gain weight over the last few months about 7pounds.. Genitourinary: Denies any dysuria frequency urgency or hematuria but Hematologic: Denies any clotting bleeding or bruising. Past Medical History Past Medical History: Eye Disorder, GERD/Reflux, Hyperlipidemia, Hypertension, Musculoskeletal Disorder Additional Past Medical History / Comment(s): "Current hemorrhoids." Hx hiatal hernia, chronic neck and back pain, cervical disc degeneration, restless leg syndrome, migraines, past endometriosis, right eye cataract. History of Any Multi-Drug Resistant Organisms: None Reported Past Surgical History: Appendectomy, Section, Cholecystectomy, Hysterectomy, Orthopedic Surgery Additional Past Surgical History / Comment(s): c-sect x3,rt knee arthroscopy x2, heel spurs nahomy feet,laparoscopy (several), EGD, colonoscopy(several). Past Anesthesia/Blood Transfusion Reactions: No Reported Reaction Additional Past Anesthesia/Blood Transfusion Reaction / Comment(s): no blood transfusion. mild clausterphobia Past Psychological History: Anxiety Smoking Status: Former smoker Past Alcohol Use History: None Reported Additional Past Alcohol Use History / Comment(s): started smoking 1972 quit smoking 1979,smoked <1ppd Past Drug Use History: None Reported - Past Family History Mother Additional Family Medical History / Comment(s): w/ sepsis after area removed from pancreas Father Family Medical History: Cancer Additional Family Medical History / Comment(s): stomach Brother(s) Family Medical History: Cancer Additional Family Medical History / Comment(s): colon- at age 52 Sister(s) Family Medical History: CVA/TIA Additional Family Medical History / Comment(s): cva- at age 55 Medications and Allergies Home Medications Medication Instructions Recorded Confirmed Type Cyclobenzaprine [Flexeril] 10 mg PO TID 07/04/15 10/07/19 History Omeprazole 20 mg PO DAILY 07/04/15 10/07/19 History Pramipexole [Mirapex] 0.5 mg PO HS 07/04/15 10/07/19 History Sertraline HCl 100 mg PO DAILY 07/04/15 10/07/19 History Acetaminophen-Codeine 300-30mg 1 tab PO Q8H PRN 07/11/17 10/07/19 History [Tylenol w/codeine #3] Atorvastatin [Lipitor] 40 mg PO DAILY tab 07/12/17 10/07/19 Rx clonazePAM 0.5 mg PO TID PRN 06/25/18 10/07/19 History Albuterol Inhaler [Ventolin Hfa 2 puff INHALATION RT-Q4H PRN 10/07/19 10/07/19 History Inhaler] Lisinopril [Zestril] 10 mg PO DAILY 10/07/19 10/07/19 History Metoprolol Tartrate [Lopressor] 100 mg PO BID 10/07/19 10/07/19 History Zolpidem Tartrate [Ambien] 5 mg PO HS PRN 10/07/19 10/07/19 History predniSONE [Deltasone] See Taper PO DIRECTED 10/07/19 10/07/19 History Allergies Allergy/AdvReac Type Severity Reaction Status Date / Time pumpkin Allergy Anaphylaxis Verified 10/07/19 17:44 Sulfa (Sulfonamide Allergy Rash/Hives Verified 10/07/19 17:44 Antibiotics) walnut Allergy Unknown Verified 10/07/19 17:44 Physical Exam Vitals: Vital Signs Temp Pulse Pulse Resp BP Pulse Ox 10/09/19 11:54 97.8 F 82 16 126/78 95 10/09/19 09:02 77 10/09/19 08:51 76 10/09/19 08:00 97.9 F 81 16 147/86 97 10/09/19 04:00 82 16 134/83 98 10/08/19 23:13 76 16 127/63 96 10/08/19 20:00 98.3 F 84 16 129/77 96 10/08/19 19:15 84 10/08/19 19:06 84 10/08/19 16:00 16 10/08/19 15:59 98.4 F 68 16 120/66 97 Intake and Output 10/08/19 10/09/19 10/09/19 22:59 06:59 14:59 Other: # Voids 1 1 2 Weight 88 kg Physical Exam: Revealed 63-year-old female in no distress. Very pleasant. On room air. Head: Atraumatic, normocephalic. HEENT:[Neck is supple.] [No neck masses.] [No thyromegaly.] [No JVD.] Chest: [Clear throughout, no crackles, no rhonchi, no wheezes.] Tenderness over the sternum and the right parasternal area pain is reproducible with palpation. Cardiac Exam: [Normal S1 and S2, no S3 gallop, no murmur.] Abdomen: [Soft, nontender, no megaly, no rebound, no guarding, normal bowel sounds.] Extremities: [No clubbing, no edema, no cyanosis.] Neurological Exam: [No focal neurologic deficit.] Alert and oriented 3. Psychiatric: Normal mood, affect and normal mental status examination. Skin: No rashes. Results - Laboratory Findings CBC and BMP: 10/09/19 06:55 10/09/19 06:55 PT/INR, D-dimer PT 10.2 sec (9.0-12.0) 10/07/19 14:24 INR 1.0 (<1.2) 10/07/19 14:24 D-Dimer <0.17 mg/L FEU (<0.60) 10/07/19 14:24 Abnormal lab findings: Abnormal Labs 10/07/19 10/07/19 10/08/19 14:24 14:24 20:28 WBC 16.6 H Neutrophils # 13.7 H Chloride 108 H BUN Glucose 116 H POC Glucose (mg/dL) 149 H 10/09/19 10/09/19 10/09/19 06:03 06:55 06:55 WBC Neutrophils # 9.0 H Chloride BUN 22 H Glucose 145 H POC Glucose (mg/dL) 159 H 10/09/19 12:24 WBC Neutrophils # Chloride BUN Glucose POC Glucose (mg/dL) 119 H - Diagnostic Findings Chest x-ray: image reviewed (Chest x-ray showed no evidence of any acute pulmonary process.) Assessment and Plan Assessment: Impression: Chronic cough most likely lisinopril induced and also secondary to poorly controlled GERD. Musculoskeletal chest wall pain. Remote smoking history, quit smoking over 40 years ago. Benign essential hypertension Dyslipidemia History of restless leg syndrome Recommendation: Recommend stopping lisinopril. Recommend omeprazole 20 mg twice a day. Recommend a course of prednisone upon discharge at 15 mg daily tapered over the next 30 days. That is 15 mg daily for 10 days 10 mg daily for 10 days 5 mg daily for 10 days Recommend follow-up in our pulmonary office in the next 2-3 weeks, Cough suppression with cough suppressant medications. Patient could be cleared for discharge planning and outpatient follow-up. Time with Patient: Greater than 30
[2019-10-09] MEDS: LOSARTAN 50 MG TAB PO SCH (15:04)
[2019-10-09] MEDS: predniSONE 20 MG TAB PO SCH (15:04)
[2019-10-09 16:24] LABS: Appearance,Urine Clear (Clear); Bilirubin,Urine Negative (Negative); Blood,Urine Negative (Negative); Color,Urine Light Yellow; Glucose,Urine (UA) Negative (Negative); Ketones,Urine Negative (Negative); Leukocyte Esterase,Urine Negative (Negative); Nitrite,Urine Negative (Negative); PH, Urine 5.5 (5.0-8.0); Protein,Urine Negative (Negative); Specific Gravity,Urine 1.008 (1.001-1.035); Urobilinogen,Urine <2.0 mg/dL (<2.0)
[2019-10-09 17:22] LABS: Glucose,Whole Blood 140 mg/dL (75-99)
[2019-10-09] MEDS ORDERED: PANTOPRAZOLE 40 MG TABLET PO SCH (17:30)
--- NOTE | 2019-10-09 18:07 | CT ---
EXAMINATION TYPE: CT chest wo con DATE OF EXAM: 10/09/2019 COMPARISON: 10/07/2019 chest x-ray HISTORY: Cough since May. CT DLP: 479.2 mGycm. Automated Exposure Control for Dose Reduction was Utilized. TECHNIQUE: CT scan of the thorax is performed without IV contrast. FINDINGS: LUNGS: Probable intrafissural lymph node is seen in the right minor fissure on axial image 27 and cor onal image 53. Multifocal subsegmental atelectasis and/or pleural parenchymal scarring in the lower l obes. The lungs are grossly clear, there is no concerning parenchymal mass or nodule identified. The re is no pleural effusion or pneumothorax seen. The tracheobronchial tree is patent. MEDIASTINUM: Lack of IV contrast is noted to limit evaluation for mediastinal and especially hilar ad enopathy. There are no definitive greater than 1 cm hilar or mediastinal lymph nodes. Nonenlarged me diastinal lymph nodes are incidentally seen on the left No cardiomegaly. Mild atherosclerosis of the lunar arteries. Very trace pericardial effusion. OTHER: Cholecystectomy clips are present. IMPRESSION: No focal consolidation, pleural effusion or pneumothorax. Multifocal subsegmental atelect asis and/or pleural parenchymal scarring at the lung bases.
--- NOTE | 2019-10-09 18:40 | PN ---
PROGRESS NOTE DATE OF SERVICE: 10/09/2019 This 63-year-old woman with a past medical history of multiple medical problems admitted with significant recurrent cough. The patient apparently had been tested for Covid multiple times without milieu. Patient symptomatic since May. The patient also history of gastroesophageal reflux disease and multiple other medical issues also. The patient is started on empiric antibiotics and as well as steroids. The most recent chest x-ray which was done on 10/07/2019 which was reviewed by me showed some increased bronchovascular markings and no acute abnormality. PAST MEDICAL HISTORY: Reviewed. REVIEW OF SYSTEMS: CARDIOVASCULAR SYSTEM: No angina or palpitations. RESPIRATIONS: As mentioned earlier. GI as mentioned earlier. CENTRAL NERVOUS SYSTEM: No numbness or weakness. CURRENT MEDICATIONS: Reviewed and include: 1. Tylenol No.3. 2. DuoNeb q.i.d. and p.r.n. 3. Aspirin 81 mg daily. 4. Lipitor 40 mg p.o. daily. 5. Tessalon Perles 200 mg p.o. t.i.d. 6. Klonopin 0.5 mg t.i.d. p.r.n. 7. Flexeril 10 mg p.o. t.i.d. 8. Vibramycin 100 mg p.o. b.i.d. 9. Robitussin. 10.Heparin. 11.NovoLog. 12.Cozaar. 13.Lopressor. 14.Nitrostat. 15.Protonix. 16.Mirapex. 17.Prednisone. 18.Zoloft. 19.Ambien. PHYSICAL EXAM: Patient is alert and oriented x3. Pulse 82, blood pressure 126/78, respirations 16, temperature 97.8, pulse ox 94% on room air. HEENT is conjunctivae normal. NECK: No JVD. CARDIOVASCULAR: S1, S2 muffled. RESPIRATION: Breath sounds diminished in the bases. Bilateral scattered rhonchi and crackles. ABDOMEN: Soft, nontender. No mass palpable. LEGS are no edema. No swelling. CENTRAL NERVOUS SYSTEM: No focal deficits. LABORATORY DATA: CBC within normal limits. Sodium 137, potassium 4.6. Cholesterol apparently normal. ASSESSMENT: 1. Intractable cough and sputum with possible bronchopneumonia. 2. Chest heaviness, myocardial infarction ruled out. Most likely secondary to cough per Cardiology. 3. Prolonged QTc of 6, 7 and 5 milliseconds in the EKG. 4. Possible underlying chronic obstructive pulmonary disease with history of smoking. 5. Hypertension. 6. Hyperlipidemia. 7. Gastroesophageal reflux disease. 8. Chronic neck pain and back pain with cervical degenerative joint disease. 9. Restless legs syndrome. 10.History of migraine headaches. 11.Anxiety. 12.History of previous smoking. 13.DVT prophylaxis. 14.Increased random blood sugar. 15.Hemorrhoids. 16.History of hiatal hernia. 17.History of degenerative joint disease. 18.History of anxiety. 19.History of claustrophobia. RECOMMENDATIONS AND DISCUSSION: This 63-year-old woman who presented with multiple complex medical issues, we will monitor the patient closely, continue the current medications, management and symptomatic treatment. I would also recommend a pulmonology consultation. Cardiology has seen the patient. A 2D echo with Doppler showed ejection fraction 50-60 percent and no other acute abnormalities. We will continue to monitor. Continue with steroids. Continue the rest of medications. I would also recommend a CT scan of the chest to complete the workup as well. Further recommendations to follow. MMODL / IJN: [id number] /
[2019-10-09] MEDS: PRAMIPEXOLE 0.5 MG TAB PO SCH (20:04)
[2019-10-09] MEDS: PANTOPRAZOLE 40 MG/10 ML VIAL IVP SCH (20:05)
[2019-10-09 20:53] LABS: Glucose,Whole Blood 157 mg/dL (75-99)
[2019-10-09] MEDS: guaiFENesin-DM 100-10MG/5ML 10 ML CUP PO PRN (22:48)
[2019-10-09] MEDS: ZOLPIDEM 5 MG TAB PO PRN (22:48)
[2019-10-10] MEDS: HEPARIN SODIUM,PORCINE 5,000 UNIT/ML 1 ML VIAL SQ SCH ×4 (00:12→23:18)
[2019-10-10] MEDS: clonazePAM 0.5 MG TAB PO PRN ×3 (00:13→23:18)
[2019-10-10] MEDS: guaiFENesin-DM 100-10MG/5ML 10 ML CUP PO PRN ×3 (06:00→23:57)
[2019-10-10] MEDS: BENZONATATE 100 MG CAP PO PRN ×3 (06:00→23:18)
[2019-10-10] MEDS: Acetaminophen-Codeine 300-30mg TAB PO PRN ×3 (06:00→23:18)
[2019-10-10 06:02] LABS: Glucose,Whole Blood 130 mg/dL (75-99)
[2019-10-10] MEDS: INSULIN ASPART (NovoLOG) 100 UNIT/ML VIAL SQ SCH ×4 (06:04→20:20)
[2019-10-10] MEDS: LOSARTAN 50 MG TAB PO SCH (08:15)
[2019-10-10] MEDS: CYCLOBENZAPRINE 10 MG TAB PO SCH ×3 (08:15→23:18)
[2019-10-10] MEDS: METOPROLOL TARTRATE 50 MG TAB PO SCH ×2 (08:15→20:24)
[2019-10-10] MEDS: ATORVASTATIN 40 MG TAB PO SCH (08:15)
[2019-10-10] MEDS: SERTRALINE 100 MG TAB PO SCH (08:16)
[2019-10-10] MEDS: PANTOPRAZOLE 40 MG/10 ML VIAL IVP SCH ×2 (08:16→20:25)
[2019-10-10] MEDS: DOXYCYCLINE 100 MG CAP PO SCH ×2 (08:16→20:25)
[2019-10-10] MEDS: predniSONE 20 MG TAB PO SCH (08:16)
[2019-10-10] MEDS: ASPIRIN 81 MG PO SCH (08:16)
[2019-10-10] MEDS: NITROGLYCERIN SL TABS 0.4 MG TAB SUBLINGUAL PRN ×2 (09:00→09:11)
[2019-10-10 09:25] VITALS: RESP 16
[2019-10-10 10:35] LABS: ALT 19 U/L (4-34); AST 19 U/L (14-36); African American GFR (CKD) >90 (>60 ml/min/1.73 sqM); Albumin 4.1 g/dL (3.5-5.0); Alkaline Phosphatase 93 U/L (38-126); Anion Gap 9 mmol/L; Blood Urea Nitrogen 27 mg/dL (7-17); Calcium 9.4 mg/dL (8.4-10.2); Carbon Dioxide 25 mmol/L (22-30); Chloride 103 mmol/L (98-107); Glucose 109 mg/dL (74-99); Non-African American GFR(CKD) 83 (>60 ml/min/1.73 sqM); Potassium 4.8 mmol/L (3.5-5.1); Sodium 137 mmol/L (137-145); Total Bilirubin 0.5 mg/dL (0.2-1.3); Total Protein 7.1 g/dL (6.3-8.2)
--- NOTE | 2019-10-10 11:35 | P.PN ---
Subjective Patient was cleared from a chronic standpoint but this morning she started experiencing excruciating right abdominal discomfort more so to the left side that slowly spread to her epigastrium and then up in the middle of her chest into her neck. The pain was excruciating. She was sitting and when something on her phone when this started. A 12-lead ECG was performed and it did not show any new or significant changes A d-dimer and a troponin level have been sent On examination when I examined her she had no chest wall tenderness 1 tenderness and she looked comfortable the pain was relieved with nitroglycerin Labs came back Troponin is normal D-dimer is normal now Normal heart sounds normal S1 normal S2 Normal breath sounds no rhonchi no crackles Abdomen is normal soft nontender no masses No JVD no lower extremity edema Impression atypical abdominal discomfort in the right upper quadrant and epigastrium the spread of fluids, atypical for cardiac event EKG does not show any new abnormalities. Nonspecific ST-T changes noted Fourth cardiac enzyme is normal d-dimer is normal Suggest seek alternative causes of chest discomfort Objective - Vital Signs Vital signs: Vital Signs Temp 98.7 F 10/10/19 07:53 Pulse 81 10/10/19 09:27 Resp 16 10/10/19 09:27 BP 133/73 10/10/19 09:27 Pulse Ox 96 10/10/19 09:27 Intake & Output 10/09/19 10/10/19 10/10/19 18:59 06:59 18:59 Weight 87.6 kg Other: # Voids 2 1 1 - Labs CBC & Chem 7: 10/09/19 06:55 10/10/19 09:39 Labs: Abnormal Lab Results - Last 24 Hours (Table) 10/09/19 10/09/19 10/09/19 Range/Units 12:24 17:21 20:52 BUN (7-17) mg/dL Glucose (74-99) mg/dL POC Glucose (mg/dL) 119 H 140 H 157 H (75-99) mg/dL 10/10/19 10/10/19 Range/Units 06:00 09:39 BUN 27 H (7-17) mg/dL Glucose 109 H (74-99) mg/dL POC Glucose (mg/dL) 130 H (75-99) mg/dL
[2019-10-10 11:37] LABS: Glucose,Whole Blood 133 mg/dL (75-99)
--- NOTE | 2019-10-10 13:31 | P.PN ---
Subjective Progress Note Date: 10/10/19 Principal diagnosis: Chronic cough This is a 63-year-old female, remote smoking history, quit smoking over 40 years ago. Patient is not known to have any history of COPD, not known to have any history of bronchial asthma. She is known however to have history of severe GERD and hiatal hernia. And she is also known to have history of hypertension, entertained on metoprolol and lisinopril for hypertension. Patient was admitted this time with 5 months history of cough. Cough is described as nonproductive cough, not associated with any wheezing. However it is associated with chest pain, sternal and parasternal chest wall pain upon coughing. Has been treated by her primary care physician with antibiotics, and steroids, did not seem to help her symptoms. She saw her primary care physician recently, and she recommended to go to the ER if she didn't improve with Medrol Dosepak. Patient was admitted on 10/07/19, chest x-ray showed no evidence of active disease. Her d-dimer was normal. Patient was seen by cardiology on consultation, and felt that her cough was musculoskeletal atypical in nature. Hence no further diagnostic cardiac workup was recommended. Today I was asked to see the patient on consultation for her chronic cough which I believe it is mostly secondary to lisinopril, it is also secondary to poorly controlled GERD. Patient denies any symptoms of ALLERGIC rhinitis, denies any postnasal drip symptoms. Again her cough is dry hacking cough. Not associated with any fever or chills or hemoptysis. Patient was tested for mcnair virus PCR, and she was told it was negative. This was done by her primary care physician. Her labs today were all reviewed, she had a relatively normal CBC. Normal d-dimer. Normal basic metabolic profile. Normal renal profile. And normal troponins. The patient is seen today the 2019 and follow-up on the selective care unit. She is currently sitting up in bed. Awake and alert in no acute distress. No worsening cough or congestion. No shortness of breath. Maintaining O2 saturations in the 90s on room air. Computed tomography scan of the chest last evening revealed no focal consolidation, pleural effusion or pneumothorax. There is some multifocal subsegmental atelectasis at the lung bases. She did have issues with abdominal discomfort in the right upper quadrant and epigastric area earlier this morning. EKGs within normal limits, troponin was normal d-dimer was normal. Objective - Vital Signs Vital signs: Vital Signs Temp 98.4 F 10/10/19 12:00 Pulse 67 10/10/19 12:00 Resp 16 10/10/19 12:00 BP 136/71 10/10/19 12:00 Pulse Ox 96 10/10/19 12:00 Intake & Output 10/09/19 10/10/19 10/10/19 18:59 06:59 18:59 Weight 87.6 kg Other: # Voids 2 1 1 - Exam GENERAL EXAM: Alert, pleasant 63-year-old female, on room air, comfortable in no apparent distress. HEAD: Normocephalic. EYES: Normal reaction of pupils, equal size. NOSE: Clear with pink turbinates. THROAT: No erythema or exudates. NECK: No masses, no JVD. CHEST: No chest wall deformity. LUNGS: Equal air entry with no crackles, wheeze, rhonchi or dullness. CVS: S1 and S2 normal with no audible murmur, regular rhythm. ABDOMEN: No hepatosplenomegaly, normal bowel sounds, no guarding or rigidity. SPINE: No scoliosis or deformity SKIN: No rashes CENTRAL NERVOUS SYSTEM: No focal deficits, tone is normal in all 4 extremities. EXTREMITIES: There is no peripheral edema. No clubbing, no cyanosis. Peripheral pulses are intact. - Labs CBC & Chem 7: 10/09/19 06:55 10/10/19 09:39 Labs: Abnormal Lab Results - Last 24 Hours (Table) 10/09/19 10/09/19 10/10/19 Range/Units 17:21 20:52 06:00 BUN (7-17) mg/dL Glucose (74-99) mg/dL POC Glucose (mg/dL) 140 H 157 H 130 H (75-99) mg/dL 10/10/19 10/10/19 Range/Units 09:39 11:36 BUN 27 H (7-17) mg/dL Glucose 109 H (74-99) mg/dL POC Glucose (mg/dL) 133 H (75-99) mg/dL Assessment and Plan Assessment: Chronic cough most likely lisinopril induced and also secondary to poorly controlled GERD. Musculoskeletal chest wall pain. Remote smoking history, quit smoking over 40 years ago. Benign essential hypertension Dyslipidemia History of restless leg syndrome Plan: The patient was seen and evaluated by Dr. Baptiste Continue prednisone taper Cleared for discharge from the pulmonary standpoint Follow-up in the office in 2-3 weeks I, the cosigning physician, performed a history & physical examination of the patient. Lungs sounds are clear. Maintaining good O2 saturations in the 90s on room air. I discussed the assessment and plan of care with my nurse practitioner, Mary Templeton. I attest to the above note as dictated by her.
[2019-10-10 16:39] LABS: Glucose,Whole Blood 118 mg/dL (75-99)
[2019-10-10 17:16] LABS: T4, Free (Free Thyroxine) 1.29 ng/dL (0.78-2.19)
--- NOTE | 2019-10-10 19:29 | PN ---
PROGRESS NOTE DATE OF SERVICE: 10/10/2019 This 63-year-old woman was admitted with incessant cough also had prolonged QTc. The patient is being closely monitored at this time. This morning, the patient had pain arising from the right side of the lower part of the abdomen going to the right side of the chest and up to the neck and patient also had hypertensive urgency at this time. The patient being closely monitored. The CT scan of the chest showed multifocal subsegmental atelectasis and some pleural scarring, but no acute abnormality including pneumonia was visualized. Multiple consultants following the patient closely. An ultrasound of the abdomen has been requested. PAST MEDICAL HISTORY: Reviewed. REVIEW OF SYSTEMS: Cardiovascular is as mentioned earlier. Respiratory: As mentioned earlier. GI: As mentioned earlier. : No dysuria. NERVOUS SYSTEM: As mentioned earlier. CURRENT MEDICATIONS: 1. Tylenol #3. 2. DuoNeb q.i.d. and p.r.n. 3. Aspirin 81 mg. 4. Lipitor 40 mg daily. 5. Tessalon Perles. 6. Klonopin 0.4 mg t.i.d. p.r.n. 7. Flexeril 10 mg p.o. t.i.d. 8. Vibramycin 100 mg p.o. b.i.d. 9. Guaifenesin. 10.Heparin. 11.NovoLog. 12.Cozaar. 13.Lopressor. 14.Protonix. 15.Mirapex. 16.Prednisone. 17.Zoloft. 18.Ambien. PHYSICAL EXAMINATION: Patient is alert, oriented x3. Pulse is 67. Blood pressure 130/71, respirations 16, temperature is 98.4, pulse ox 98% on room air. HEENT: Conjunctivae normal. Oral mucosa moist. NECK is no jugular venous distention. No carotid bruit. No lymph node enlargement. CARDIOVASCULAR: S1, S2 muffled. RESPIRATION: Breath sounds diminished in the bases. Bilateral scattered rhonchi. ABDOMEN: Soft, nontender. LEGS are no edema. No swelling. Nervous System: No focal deficits. LABS: Accu-Cheks 109. Otherwise noted. ASSESSMENT: 1. Intractable cough and sputum with possible bronchopneumonia. 2. Chest heaviness, myocardial infarction ruled out. Most likely secondary to cough per Cardiology. 3. Right-sided chest pain possibly musculoskeletal, rule out gallbladder pathology. 4. Prolonged QTc of 605 milliseconds. 5. Possible underlying chronic obstructive pulmonary disease with a history of smoking. 6. Hypertension. 7. Hyperlipidemia. 8. Gastroesophageal reflux disease. 9. Chronic neck and back pain with cervical degenerative joint disease. 10.Restless legs syndrome. 11.History of migraine headaches. 12.Anxiety. 13.History of previous smoking. 14.Deep vein thrombosis prophylaxis. 15.Increased random blood sugar. 16.Hemorrhoids. 17.History of hiatal hernia. 18.History of degenerative joint disease. 19.History of anxiety. 20.History of claustrophobia. RECOMMENDATIONS AND DISCUSSION: Recommend to continue current medications, continue to monitor, symptomatic treatment. Otherwise, we will follow the patient closely along with Cardiology. Symptomatic treatment continue. Continue with antibiotics and steroids. Prognosis guarded because of multiple complex medical issues and further recommendations to follow. MMALIXL / JINNY: [id number] /
[2019-10-10 20:14] LABS: Glucose,Whole Blood 106 mg/dL (75-99)
[2019-10-10] MEDS: PRAMIPEXOLE 0.5 MG TAB PO SCH (20:25)
[2019-10-10] MEDS: ZOLPIDEM 5 MG TAB PO PRN (23:22)
[2019-10-11 06:03] LABS: Glucose,Whole Blood 101 mg/dL (75-99)
[2019-10-11 06:06] VITALS: TEMP 97.7
[2019-10-11] MEDS: INSULIN ASPART (NovoLOG) 100 UNIT/ML VIAL SQ SCH ×2 (06:06→12:04)
--- NOTE | 2019-10-11 08:24 | US ---
EXAMINATION TYPE: US gallbladder DATE OF EXAM: 10/11/2019 COMPARISON: CT 10/09/2019 CLINICAL HISTORY: abdominal pain. EXAM MEASUREMENTS: Liver Length: 18.0 cm as measured Gallbladder Wall: Surgically absent CBD: 1.7 cm Right Kidney: 10.4 x 4.6 x 5.0 cm Pancreas: Obscured by bowel gas, visualized portions are normal Liver: Enlarged, coarse, echogenic echotexture Gallbladder: Surgically absent Evidence for sonographic Hernandez's sign: No CBD: Dilated with ring down artifact visualized from anterior wall Right Kidney: No hydronephrosis or masses seen There is no ascites. IMPRESSION: Correlate for hepatocellular disease, hepatic steatosis, suspect borderline liver enlarge ment. Dilated common bile duct may be due to postcholecystectomy change.
[2019-10-11] MEDS: predniSONE 20 MG TAB PO SCH (09:39)
[2019-10-11] MEDS: SERTRALINE 100 MG TAB PO SCH (09:39)
[2019-10-11] MEDS: LOSARTAN 50 MG TAB PO SCH (09:39)
[2019-10-11] MEDS: Acetaminophen-Codeine 300-30mg TAB PO PRN (09:39)
[2019-10-11] MEDS: ATORVASTATIN 40 MG TAB PO SCH (09:39)
[2019-10-11] MEDS: PANTOPRAZOLE 40 MG/10 ML VIAL IVP SCH (09:40)
[2019-10-11] MEDS: CYCLOBENZAPRINE 10 MG TAB PO SCH (09:40)
[2019-10-11] MEDS: ASPIRIN 81 MG PO SCH (09:40)
[2019-10-11] MEDS: METOPROLOL TARTRATE 50 MG TAB PO SCH (09:40)
[2019-10-11] MEDS: HEPARIN SODIUM,PORCINE 5,000 UNIT/ML 1 ML VIAL SQ SCH (09:40)
[2019-10-11] MEDS: DOXYCYCLINE 100 MG CAP PO SCH (09:42)
[2019-10-11] MEDS: guaiFENesin-DM 100-10MG/5ML 10 ML CUP PO PRN (09:43)
[2019-10-11] MEDS: clonazePAM 0.5 MG TAB PO PRN (10:19)
[2019-10-11 11:39] LABS: Glucose,Whole Blood 99 mg/dL (75-99)
[2019-10-11 12:03] VITALS: BP 126/84; PULSE 84
--- NOTE | 2019-10-11 14:15 | P.PN ---
Subjective Progress Note Date: 10/11/19 Principal diagnosis: Chronic cough This is a 63-year-old female, remote smoking history, quit smoking over 40 years ago. Patient is not known to have any history of COPD, not known to have any history of bronchial asthma. She is known however to have history of severe GERD and hiatal hernia. And she is also known to have history of hypertension, entertained on metoprolol and lisinopril for hypertension. Patient was admitted this time with 5 months history of cough. Cough is described as nonproductive cough, not associated with any wheezing. However it is associated with chest pain, sternal and parasternal chest wall pain upon coughing. Has been treated by her primary care physician with antibiotics, and steroids, did not seem to help her symptoms. She saw her primary care physician recently, and she recommended to go to the ER if she didn't improve with Medrol Dosepak. Patient was admitted on 10/07/19, chest x-ray showed no evidence of active disease. Her d-dimer was normal. Patient was seen by cardiology on consultation, and felt that her cough was musculoskeletal atypical in nature. Hence no further diagnostic cardiac workup was recommended. Today I was asked to see the patient on consultation for her chronic cough which I believe it is mostly secondary to lisinopril, it is also secondary to poorly controlled GERD. Patient denies any symptoms of ALLERGIC rhinitis, denies any postnasal drip symptoms. Again her cough is dry hacking cough. Not associated with any fever or chills or hemoptysis. Patient was tested for mcnair virus PCR, and she was told it was negative. This was done by her primary care physician. Her labs today were all reviewed, she had a relatively normal CBC. Normal d-dimer. Normal basic metabolic profile. Normal renal profile. And normal troponins. The patient is seen today the 2019 and follow-up on the selective care unit. She is currently sitting up in bed. Awake and alert in no acute distress. No worsening cough or congestion. No shortness of breath. Maintaining O2 saturations in the 90s on room air. Computed tomography scan of the chest last evening revealed no focal consolidation, pleural effusion or pneumothorax. There is some multifocal subsegmental atelectasis at the lung bases. She did have issues with abdominal discomfort in the right upper quadrant and epigastric area earlier this morning. EKGs within normal limits, troponin was normal d-dimer was normal. The patient is seen today 10/11/2019 and follow-up on the selective care unit. Awake and alert in no acute distress. Maintaining good O2 saturations up to 100% on room air. Less cough and congestion. Her chest discomfort. Ultrasound of the abdomen revealed postcholecystectomy changes. Some hepatocellular di sease, hepatic steatosis. Borderline liver enlargement. Otherwise no significant findings. Objective - Vital Signs Vital signs: Vital Signs Temp 97.7 F 10/11/19 08:35 Pulse 84 10/11/19 11:15 Resp 16 10/11/19 11:15 BP 126/84 10/11/19 11:15 Pulse Ox 96 10/11/19 11:15 Intake & Output 10/10/19 10/11/19 10/11/19 18:59 06:59 18:59 Intake Total 1080 120 Balance 1080 120 Weight 87.7 kg Intake: Oral 1080 120 Other: # Voids 1 2 1 - Exam GENERAL EXAM: Alert, pleasant 63-year-old female, on room air, comfortable in no apparent distress. HEAD: Normocephalic. EYES: Normal reaction of pupils, equal size. NOSE: Clear with pink turbinates. THROAT: No erythema or exudates. NECK: No masses, no JVD. CHEST: No chest wall deformity. LUNGS: Equal air entry with no crackles, wheeze, rhonchi or dullness. CVS: S1 and S2 normal with no audible murmur, regular rhythm. ABDOMEN: No hepatosplenomegaly, normal bowel sounds, no guarding or rigidity. SPINE: No scoliosis or deformity SKIN: No rashes CENTRAL NERVOUS SYSTEM: No focal deficits, tone is normal in all 4 extremities. EXTREMITIES: There is no peripheral edema. No clubbing, no cyanosis. Perip heral pulses are intact. - Labs CBC & Chem 7: 10/09/19 06:55 10/10/19 09:39 Labs: Abnormal Lab Results - Last 24 Hours (Table) 10/10/19 10/10/19 10/10/19 Range/Units 09:39 16:38 20:13 POC Glucose (mg/dL) 118 H 106 H (75-99) mg/dL TSH 0.269 L (0.465-4.680) mIU/L 10/11/19 Range/Units 06:02 POC Glucose (mg/dL) 101 H (75-99) mg/dL TSH (0.465-4.680) mIU/L Assessment and Plan Assessment: Chronic cough most likely lisinopril induced and also secondary to poorly controlled GERD. Musculoskeletal chest wall pain. Remote smoking history, quit smoking over 40 years ago. Benign essential hypertension Dyslipidemia History of restless leg syndrome Plan: The patient was seen and evaluated by Dr. Baptiste Avoid LINSEY inhibitors Continue Protonix twice a day Continue prednisone taper Cleared for discharge from the pulmonary standpoint Follow-up in the office I, the cosigning physician, performed a history & physical examination of the patient. Lungs sounds are clear. Maintaining good O2 saturations in the 90s on room air. I discussed the assessment and plan of care with my nurse practitioner, Mary Templeton. I attest to the above note as dictated by her.
--- NOTE | 2019-10-11 22:24 | DS ---
DISCHARGE SUMMARY DATE OF SERVICE: 10/11/2019 FINAL DIAGNOSES: 1. Intractable cough and sputum with possible acute bronchopneumonia. 2. Chest heaviness, myocardial infarction ruled out, most likely secondary to cough per Cardiology. 3. Right-sided chest pain possibly musculoskeletal. 4. Prolonged QTc, improved. 5. Possible underlying chronic obstructive pulmonary disease with history of smoking. 6. Hypertension. 7. Hyperlipidemia. 8. Gastroesophageal reflux disease. 9. Chronic neck and back pain and cervical degenerative joint disease. 10.History of restless legs syndrome. 11.History of ongoing migraine headaches. 12.Anxiety. 13.History of previous smoking. 14.Deep vein thrombosis prophylaxis. 15.Increased random blood sugar. 16.Hemorrhoids. 17.History of hiatal hernia. 18.History of degenerative joint disease. 19.History of anxiety. 20.History of claustrophobia. DISCHARGE DISPOSITION: The patient will be discharged in stable condition with guarded prognosis. HISTORY OF PRESENT ILLNESS: This 63-year-old woman with past medical history of multiple medical problems admitted with chest pain and multiple other medical issues as mentioned earlier. The patient also had intractable cough. Treated symptomatically. Patient improved significantly. Covid is negative. Ultrasound of the abdomen did not show acute abnormality. Dr. Baptiste saw the patient. The patient is followed by Dr. Lee in the outpatient setting. On exam, vitals are stable. Cardiovascular: S1, S2. Abdomen soft. Nervous system: No focal deficits. DISCHARGE INSTRUCTIONS/MEDICATION: 1. Diet is cardiac. 2. Activity limited until followup. 3. Follow up with Dr. Lee in 1-2 days. 4. Follow up with Dr. Baptiste as advised. 5. Follow with Cardiology as recommended. DISCHARGE MEDICATIONS: 1. Ambien 5 mg q.h.s. p.r.n. 2. Klonopin 0.5 mg t.i.d. 3. Flexeril 10 mg p.o. t.i.d. 4. Lopressor 100 mg p.o. b.i.d. 5. Mirapex 0.5 mg q.h.s. 6. Omeprazole 20 mg p.o. daily. 7. Zoloft 100 mg p.o. 8. Tylenol #3 one tab q.8h p.r.n. 9. Ventolin p.r.n. 10.Lexapro 10 mg p.o. daily. 11.Ecotrin 81 mg p.o. daily. 12.Cozaar 50 mg p.o. daily. 13.Lipitor 40 mg p.o. daily. 14.Prednisone 40 mg daily for 3 days, 30 for 3 days, 20 for 3 days, 10 for 3 days. 15.Guaifenesin 10 mL q.6 p.r.n. 16.Vibramycin 100 mg p.o. b.i.d. for 5 days. Once again, the patient will be discharged in stable condition with guarded prognosis. MMODL / IJN: [id number] /
== END 2019-10-11 13:32 | disposition home or self-care (01) | DRG 194 ==
LOC: EC 13:54 → 3SCARD 16:28 → OBSVTOIN 10-10 10:07
PROVIDERS: ADMIT Hospitalist; ATTEND Hospitalist
DX: J18.0 Bronchopneumonia, unspecified organism (principal); J98.11 Atelectasis; J44.0 Chronic obstructive pulmonary disease with (acute) lower respiratory infection; Z87.891 Personal history of nicotine dependence; E78.5 Hyperlipidemia, unspecified; F40.240 Claustrophobia; G25.81 Restless legs syndrome; G43.909 Migraine, unspecified, not intractable, without status migrainosus; G89.29 Other chronic pain; I10 Essential (primary) hypertension; I16.0 Hypertensive urgency; J20.9 Acute bronchitis, unspecified; K21.9 Gastro-esophageal reflux disease without esophagitis; K64.9 Unspecified hemorrhoids; K76.0 Fatty (change of) liver, not elsewhere classified; M47.812 Spondylosis without myelopathy or radiculopathy, cervical region; M50.30 Other cervical disc degeneration, unspecified cervical region; T46.4X5A Adverse effect of angiotensin-converting-enzyme inhibitors, initial encounter; Z79.899 Other long term (current) drug therapy; Z82.3 Family history of stroke; Z20.828 Contact with and (suspected) exposure to other viral communicable diseases; Z90.710 Acquired absence of both cervix and uterus; Z90.49 Acquired absence of other specified parts of digestive tract; H26.9 Unspecified cataract; R07.89 Other chest pain; R73.9 Hyperglycemia, unspecified; K44.9 Diaphragmatic hernia without obstruction or gangrene; Z80.0 Family history of malignant neoplasm of digestive organs; R94.31 Abnormal electrocardiogram [ECG] [EKG]; M19.90 Unspecified osteoarthritis, unspecified site; F41.9 Anxiety disorder, unspecified; Z88.2 Allergy status to sulfonamides; Z91.018 Allergy to other foods
CPT/HCPCS: 36415; 71046; 71250; 76705; 80048; 80053; 80061; 81003; 83735; 84439; 84443; 84484; 85025; 85379; 85610; 85652; 85730; 86140; 87635; 93005; 93306; 94640; 99285

== ENCOUNTER → 2019-10-13 | Outpatient (CLI) | payer BC ==
[2019-10-13 15:30] LABS: Basophils % (A) 0 %; Eosinophils % (A) 0 %; HCT 39.5 % (34.0-46.0); HGB 12.7 gm/dL (11.4-16.0); Hypochromasia Marked; Lymphocytes # (A) 1.4 k/uL (1.0-4.8); Lymphocytes % (A) 10 %; MCH 27.2 pg (25.0-35.0); MCV 85.1 fL (80.0-100.0); Mean Platelet Volume 7.4; Monocytes # (A) 0.4 k/uL (0-1.0); Monocytes % (A) 3 %; Neutrophils # (A) 11.9 k/uL (1.3-7.7); Neutrophils % (A) 86 %; Platelet Count 281 k/uL (150-450); RBC 4.64 m/uL (3.80-5.40); RDW 14.7 % (11.5-15.5); WBC 13.7 k/uL (3.8-10.6)
[2019-10-13 23:03] LABS: African American GFR (CKD) 91.6 (60.0-200.0); Anion Gap 7.1 mmol/L (4.00-12.00); Calcium 9.1 mg/dL (8.7-10.3); Carbon Dioxide 24.9 mmol/L (21.6-31.8); Potassium 4.3 mmol/L (3.5-5.5)
== END | disposition home or self-care (01) ==
LOC: LABWHC1 14:52
PROVIDERS: ATTEND Registered Nurse
DX: D72.829 Elevated white blood cell count, unspecified (principal); R73.9 Hyperglycemia, unspecified
CPT/HCPCS: 36415; 80048; 85025

== ENCOUNTER → 2020-01-03 | Outpatient (CLI) | payer BC ==
--- NOTE | 2020-01-04 09:18 | EST ---
EXERCISE STRESS AGE: 64 SEX: F HT: 5'6" WT: 170 lbs. PROTOCOL: STAGE: 2 DURATION OF EXERCISE: 6:00 HEART RATE REST: 92 BLOOD PRESSURE REST: 151/94 MAXIMUM HEART RATE ACHIEVED: 145 MAXIMUM BLOOD PRESSURE: 168/89 85% MPHR: 133 100% MPHR: 157 METS: 7.3 INDICATIONS: Chest pain. CLINICAL INFORMATION: STRESS DATA: Heart rate is 92, pressure 151/94 mmHg. Baseline EKG showed sinus mechanism. The patient exercised on the treadmill according to Tang protocol for a total of 6 minutes and achieved 7.3 METS with max heart rate 135, which is about 92% of maximum predicted heart rate with maximum blood pressure of 168/89 mmHg. Clinically the patient developed chest discomfort in response to exercise, but EKG did not show any significant ST or T-wave abnormalities concerning for ischemia. CONCLUSION: 1. Good exercise tolerance. The patient exercised for 6 minutes. 2. Chest discomfort in response to exercise. 3. Normal EKG in response to exercise. MMODL / IJN: [id number] /
== END | disposition home or self-care (01) ==
LOC: RADNMMAIN 10:25
PROVIDERS: ATTEND Family Medicine
DX: R07.89 Other chest pain (principal)
CPT/HCPCS: 93017

== ENCOUNTER 2020-06-14 11:34 | Observation (INO) | payer BC ==
[2020-06-14] MEDS ORDERED: ASPIRIN 81 MG PO STA (11:50)
[2020-06-14] MEDS ORDERED: NITROGLYCERIN SL TABS 0.4 MG TAB SUBLINGUAL STA (11:51)
--- NOTE | 2020-06-14 11:58 | ED ---
Chest Pain HPI - General Chief Complaint: Chest Pain Stated Complaint: chest pain Time Seen by Provider: 06/14/20 11:38 Source: patient, RN notes reviewed Mode of arrival: wheelchair Limitations: no limitations - History of Present Illness Initial Comments: 64-year-old female presents emergency Department with chief complaint of chest discomfort. Patient states started just prior arrival. She states she was in the car driving when his symptoms started. She states she feels like someone is sitting on her chest. She does have a history of hyperlipidemia diabetes and hypertension. Patient also has been having ongoing shortness breath over one year seen pulmonology with no acute findings. Patient states that the pain agrees up towards her left shoulder. Patient states she feels slightly nauseated and became very diaphoretic per in the room. - Related Data Home Medications Medication Instructions Recorded Confirmed Cyclobenzaprine [Flexeril] 10 mg PO TID 07/04/15 06/14/20 Omeprazole 20 mg PO DAILY 07/04/15 06/14/20 Pramipexole [Mirapex] 0.5 mg PO HS 07/04/15 06/14/20 Sertraline HCl 100 mg PO DAILY 07/04/15 06/14/20 Acetaminophen-Codeine 300-30mg 1 tab PO TID 07/11/17 06/14/20 [Tylenol w/codeine #3] clonazePAM 0.5 mg PO TID 06/25/18 06/14/20 Albuterol Inhaler [Ventolin Hfa 2 puff INHALATION RT-Q4H PRN 10/07/19 06/14/20 Inhaler] Metoprolol Tartrate [Lopressor] 100 mg PO BID 10/07/19 06/14/20 Zolpidem Tartrate [Ambien] 5 mg PO HS 10/07/19 06/14/20 Atorvastatin [Lipitor] 40 mg PO HS 06/14/20 06/14/20 predniSONE See Taper PO DAILY 06/14/20 06/14/20 Previous Rx's Medication Instructions Recorded guaiFENesin-DM 100-10MG/5ML 10 ml PO Q6H PRN #120 ml 10/11/19 [Robitussin DM] Allergies Allergy/AdvReac Type Severity Reaction Status Date / Time pumpkin Allergy Anaphylaxis Verified 06/14/20 12:29 Sulfa (Sulfonamide Allergy Anaphylaxis Verified 06/14/20 12:29 Antibiotics) walnut Allergy Anaphylaxis Verified 06/14/20 12:29 Review of Systems ROS Statement: Those systems with pertinent positive or pertinent negative responses have been documented in the HPI. ROS Other: All systems not noted in ROS Statement are negative. EKG Findings - EKG Comments: EKG Findings:: EKG performed at 11:47 normal sinus rhythm rate of 95 [place] 140 QRS 78 QT/QTC 338/424 Past Medical History Past Medical History: Eye Disorder, GERD/Reflux, Hyperlipidemia, Hypertension, Musculoskeletal Disorder Additional Past Medical History / Comment(s): "Current hemorrhoids." Hx hiatal hernia, chronic neck and back pain, cervical disc degeneration, restless leg syndrome, migraines, past endometriosis, right eye cataract. History of Any Multi-Drug Resistant Organisms: None Reported Past Surgical History: Appendectomy, Section, Cholecystectomy, Hysterectomy, Orthopedic Surgery Additional Past Surgical History / Comment(s): c-sect x3,rt knee arthroscopy x2, heel spurs nahomy feet,laparoscopy (several), EGD, colonoscopy(several). Past Anesthesia/Blood Transfusion Reactions: No Reported Reaction Additional Past Anesthesia/Blood Transfusion Reaction / Comment(s): no blood transfusion. mild clausterphobia Past Psychological History: Anxiety Smoking Status: Former smoker Past Alcohol Use History: None Reported Past Drug Use History: None Reported - Past Family History Mother Additional Family Medical History / Comment(s): w/ sepsis after area removed from pancreas Father Family Medical History: Cancer Additional Family Medical History / Comment(s): stomach Brother(s) Family Medical History: Cancer Additional Family Medical History / Comment(s): colon- at age 52 Sister(s) Family Medical History: CVA/TIA Additional Family Medical History / Comment(s): cva- at age 55 General Exam Limitations: no limitations General appearance: alert, in no apparent distress, anxious Head exam: Present: atraumatic, normocephalic, normal inspection Eye exam: Present: normal appearance, PERRL, EOMI. Absent: scleral icterus, conjunctival injection, periorbital swelling ENT exam: Present: normal exam, normal oropharynx, mucous membranes moist Neck exam: Present: normal inspection. Absent: tenderness, meningismus, lymphadenopathy Respiratory exam: Present: normal lung sounds bilaterally. Absent: respiratory distress, wheezes, rales, rhonchi, stridor Cardiovascular Exam: Present: normal rhythm, tachycardia, normal heart sounds. Absent: systolic murmur, diastolic murmur, rubs, gallop, clicks GI/Abdominal exam: Present: soft, normal bowel sounds. Absent: distended, tende rness, guarding, rebound, rigid Extremities exam: Present: normal capillary refill. Absent: pedal edema, calf tenderness Neurological exam: Present: alert, oriented X3, CN II-XII intact Course Vital Signs 06/14/20 06/14/20 11:35 12:10 Temperature 98.4 F Pulse Rate 111 H 89 Respiratory 18 18 Rate Blood Pressure 158/87 149/92 O2 Sat by Pulse 97 99 Oximetry Chest Pain MDM - MDM Labs EKG and chest x-ray reviewed no significant abnormalities. Patient still has persistent symptoms patient will be admitted for cardiac rule out with cardiology evaluation patient was started on heparin. Disposition Clinical Impression: Chest pain Disposition: ADMITTED IP TO THIS HOSP Referrals: Rossi Lee MD [Primary Care Provider] - 1-2 days
[2020-06-14 12:17] LABS: Basophils % (A) 0 %; Eosinophils # (A) 0.1 k/uL (0-0.7); Eosinophils % (A) 1 %; HCT 38.6 % (34.0-46.0); HGB 12.8 gm/dL (11.4-16.0); Lymphocytes # (A) 1.2 k/uL (1.0-4.8); Lymphocytes % (A) 9 %; MCH 26.7 pg (25.0-35.0); MCHC 33.2 g/dL (31.0-37.0); MCV 80.6 fL (80.0-100.0); Mean Platelet Volume 7.1; Monocytes # (A) 0.4 k/uL (0-1.0); Monocytes % (A) 3 %; Neutrophils # (A) 10.7 k/uL (1.3-7.7); Neutrophils % (A) 86 %; Platelet Count 204 k/uL (150-450); RBC 4.79 m/uL (3.80-5.40); RDW 15.1 % (11.5-15.5); WBC 12.5 k/uL (3.8-10.6)
[2020-06-14] MEDS ORDERED: MORPHINE SULFATE 2 MG/ML SYRINGE IVP ONE (12:22)
[2020-06-14] MEDS ORDERED: ONDANSETRON 4 MG/2 ML VIAL IVP STA (12:22)
[2020-06-14 12:28] LABS: ALT 22 U/L (4-34); AST 22 U/L (14-36); African American GFR (CKD) >90 (>60 ml/min/1.73 sqM); Albumin 4.2 g/dL (3.5-5.0); Alkaline Phosphatase 89 U/L (38-126); Anion Gap 9 mmol/L; Blood Urea Nitrogen 19 mg/dL (7-17); Calcium 8.9 mg/dL (8.4-10.2); Carbon Dioxide 28 mmol/L (22-30); Chloride 105 mmol/L (98-107); Glucose 126 mg/dL (74-99); Lipase 53 U/L (23-300); Magnesium 2.1 mg/dL (1.6-2.3); Non-African American GFR(CKD) >90 (>60 ml/min/1.73 sqM); Potassium 4.2 mmol/L (3.5-5.1); Sodium 142 mmol/L (137-145); Total Bilirubin 0.5 mg/dL (0.2-1.3); Total Protein 6.9 g/dL (6.3-8.2)
[2020-06-14 12:35] LABS: D-Dimer 0.19 mg/L FEU (<0.60); Partial Thromboplastin Time 26.7 sec (22.0-30.0); Prothrombin Time 10.7 sec (9.0-12.0)
--- NOTE | 2020-06-14 13:16 | XR ---
EXAMINATION TYPE: XR chest 2V DATE OF EXAM: 06/14/2020 COMPARISON: Chest x-ray October 07, 2019. CT chest October 09, 2019. HISTORY: Chest pain and shortness of breath. TECHNIQUE: Frontal and lateral views of the chest are obtained. FINDINGS: There is mild chronic parenchymal change without suspicious new focal air space opacity, p leural effusion, or pneumothorax seen. The cardiac silhouette size is stable and upper limits of nor mal. Cholecystectomy clips are redemonstrated. The osseous structures are intact. IMPRESSION: No acute cardiopulmonary process. No significant change from prior.
[2020-06-14] MEDS ORDERED: MORPHINE SULFATE 4 MG/ML SYRINGE IVP STA (13:25)
--- NOTE | 2020-06-14 14:04 | CT ---
EXAMINATION TYPE: CT angio chest DATE OF EXAM: 06/14/2020 COMPARISON: CT chest 10/09/2019, chest x-ray 06/14/2020 HISTORY: Chest pains CT DLP: 443.8 mGycm Automated exposure control for dose reduction was used. CONTRAST: CTA scan of the thorax is performed with IV Contrast, patient injected with 100. wasted 34 mL of Isov ue 370, pulmonary embolism protocol. MIP images are created and reviewed. 3D reconstructed images a re created on an independent workstation and reviewed. FINDINGS: LUNGS: The lungs are grossly clear, there is no concerning parenchymal mass or nodule identified. Mi ld dependent atelectatic change. There is no pleural effusion or pneumothorax seen. The tracheobronc hial tree is patent. AORTA: No additional significant abnormality is seen. MEDIASTINUM: There is satisfactory enhancement of the pulmonary artery and its branches, there is no CT evidence for pulmonary embolism. There are no greater than 1 cm hilar or mediastinal lymph nodes. No pericardial effusion is seen. Epicardial fat pads. OTHER: No additional significant abnormality is seen. IMPRESSION: NO PULMONARY EMBOLISM.
[2020-06-14] MEDS ORDERED: HEPARIN SODIUM,PORCINE 5,000 UNIT/ML 1 ML VIAL IV ONE (14:17)
[2020-06-14] MEDS ORDERED: HEPARIN SODIUM,PORCINE 5,000 UNIT/ML 1 ML VIAL IV PRN (14:17)
[2020-06-14] MEDS ORDERED: guaiFENesin-DM 100-10MG/5ML 10 ML CUP PO PRN (14:21)
[2020-06-14] MEDS ORDERED: ZOLPIDEM 5 MG TAB PO PRN (14:21)
[2020-06-14] MEDS ORDERED: clonazePAM 0.5 MG TAB PO PRN (14:21)
[2020-06-14] MEDS ORDERED: ALBUTEROL NEBULIZED 2.5 MG/3 ML INHALATION PRN (14:21)
[2020-06-14] MEDS ORDERED: HEPARIN SOD,PORK IN 0.45% NACL 25,000 UNIT in 0.45% NACL 1 250ML.BAG IV SCH (14:30)
[2020-06-14] MEDS: NITROGLYCERIN SL TABS 0.4 MG TAB SUBLINGUAL PRN ×2 (15:56→16:12)
[2020-06-14] MEDS: Acetaminophen-Codeine 300-30mg TAB PO SCH ×2 (16:14→19:29)
[2020-06-14] MEDS: CYCLOBENZAPRINE 10 MG TAB PO SCH ×2 (16:15→19:29)
[2020-06-14] MEDS: METOPROLOL TARTRATE 50 MG TAB PO SCH (19:29)
[2020-06-14] MEDS ORDERED: PRAMIPEXOLE 0.5 MG TAB PO SCH (21:00)
[2020-06-14] MEDS ORDERED: ATORVASTATIN 40 MG TAB PO SCH (21:00)
[2020-06-15] MEDS ORDERED: ACETAMINOPHEN TAB 325 MG TAB PO PRN (01:43)
[2020-06-15 02:15] LABS: Mean Platelet Volume 7.8; Platelet Count 201 k/uL (150-450)
[2020-06-15 02:21] VITALS: RESP 16
[2020-06-15] MEDS ORDERED: PANTOPRAZOLE 40 MG TABLET PO SCH (07:30)
[2020-06-15] MEDS ORDERED: ASPIRIN 81 MG PO SCH (09:00)
[2020-06-15] MEDS ORDERED: SERTRALINE 100 MG TAB PO SCH (09:00)
[2020-06-15] MEDS ORDERED: ASPIRIN 325 MG TAB PO SCH (09:00)
[2020-06-15] MEDS: CYCLOBENZAPRINE 10 MG TAB PO SCH (09:09)
--- NOTE | 2020-06-15 09:11 | CONS ---
CONSULTATION Mrs. Rock is a 64-year-old female with known history of hypertension and hyperlipidemia, who presented with an episode of chest discomfort. Her discomfort occurred while she is in the car quite severe associated with some dyspnea. She was subsequently admitted to the hospital. At the time of my evaluation, she is pain free. The patient is usually active physically has no exertional chest discomfort. She has no significant dyspnea on exertion. She has some palpitation but no dizziness. No syncope. No peripheral edema. No PND nor orthopnea. She has underwent cardiac catheterization in 2018 that showed no evidence of obstructive coronary artery disease. The procedure was done by Dr. Prakash. The patient has a history of gastroesophageal reflux disease and history of hiatal hernia. Her coronary risk factors are remarkable for history of hypertension and hyperlipidemia. She has a remote history of smoking. She is a nondiabetic. MEDICATIONS: Her medications include Mirapex, omeprazole, metoprolol tartrate 100 mg twice a day, Flexeril, Lipitor 40 mg daily, Ventolin, Ambien, and clonazepam. REVIEW OF SYSTEMS: RESPIRATORY SYSTEM: She has some dyspnea on exertion. She has occasional cough. No recent wheezing. GI SYSTEM: No recent GI bleeding. No peptic ulcer disease. She has history of hiatal hernia. SYSTEM: No dysuria or hematuria. NERVOUS SYSTEM: No stroke or seizure. PHYSICAL EXAMINATION: A 64-year-old female, alert, oriented, in no apparent distress. Blood pressure 136/82 with the heart rate in the 70s. HEAD: Normocephalic. EYES: Sclerae anicteric. NECK: Good carotid upstroke. No bruit. No jugular venous distention. LUNGS: Clear to auscultation. HEART: Regular rate and rhythm. S1, S2. No S3. No S4. No murmur or rub. ABDOMEN: Soft, nontender. Positive bowel sounds. No organomegaly. EXTREMITIES: No edema. Intact distal pulses. LAB DATA: Lab data revealed troponin less than 0.012 for 3 samples. BUN and creatinine 19 and 0.72. Potassium 4.2. Hemoglobin 12.8. EKG revealed a sinus mechanism, rate of 95, normal axis and intervals, minor nonspecific ST-T wave changes. CT angiogram of the chest showed no evidence of pulmonary embolism. Chest x-ray shows no acute infiltrate. IMPRESSION: 1. Chest discomfort, has atypical feature for ischemic heart disease, probably related to GI origin. 2. History of hypertension. 3. Hyperlipidemia. RECOMMENDATION: I have recommended to stop the heparin and I will proceed with a stress echocardiogram and depending on those results, further recommendations will be made. The rationale behind the plan was discussed with the patient and she is in full understanding and agreement. Thank you for this consult. We will follow with you. ARLENE / JINNY: [id number] /
[2020-06-15] MEDS: METOPROLOL TARTRATE 50 MG TAB PO SCH (09:12)
[2020-06-15] MEDS: Acetaminophen-Codeine 300-30mg TAB PO SCH (09:12)
[2020-06-15 09:39] LABS: Chol/HDL Ratio 5.54; LDL Cholesterol,Calculated 69.4 mg/dL (0.0-131.0); VLDL Calculation 57.6 mg/dL (5.00-40.00)
[2020-06-15] MEDS ORDERED: DOBUTamine DRIP for NUC MED 500 MG in DEXTROSE/WATER 1 250ML.BAG IV PRN (11:55)
[2020-06-15] MEDS ORDERED: ONDANSETRON 4 MG/2 ML VIAL ONE (12:05)
[2020-06-15] MEDS ORDERED: ATROPINE SULFATE 0.1 MG/ML 10ML SYRINGE ONE (12:05)
--- NOTE | 2020-06-15 12:25 | P.HPIM ---
History of Present Illness Patient is a very pleasant 64-year-old the female came in with the complaints of pain in the retrosternal area and epigastric area pressure-like sensation nonradiating bases with some nausea constant moderate severity yesterday and m ild severity today with some dyspnea denied any diaphoresis associated with that her pain is not associated with food but did start shortly after coffee. Patient denied any fever chills patient chest pain is nonpleuritic in nature patient's d-dimer is negative patient had a CT angios the chest which did not show any pulmonary embolism. Patient EKG did not show any acute ST-T wave changes patient had a cardiac catheterization in 2018 which did not show any significant atherosclerotic occlusive disease. Patient was evaluated by cardiology patient will undergo stress test today. Patient does have significant history of hiatal hernia which appears to be causing her symptoms. Patient apparently had chronic cough, acid reflux. Patient had an upper GI endoscopy about 2 years ago. A she is on prednisone which will be discontinued Review of Systems REVIEW OF SYSTEMS: CONSTITUTIONAL: No fever, no malaise, no fatigue. HEENT: No recent visual problems or hearing problems. Denied any sore throat. CARDIOVASCULAR: No orthopnea, PND, no palpitations, no syncope. PULMONARY: No shortness of breath, no cough, no hemoptysis. GASTROINTESTINAL: No diarrhea, no abdominal pain. NEUROLOGICAL: No headaches, no weakness, no numbness. HEMATOLOGICAL: Denies any bleeding or petechiae. GENITOURINARY: Denies any burning micturition, frequency, or urgency. MUSCULOSKELETAL/RHEUMATOLOGICAL: Denies any joint pain, swelling, or any muscle pain. ENDOCRINE: Denies any polyuria or polydipsia. The rest of the 14-point review of systems is negative. Past Medical History Past Medical History: Coronary Artery Disease (CAD), Chest Pain / Angina, Eye Disorder, GERD/Reflux, Hyperlipidemia, Hypertension, Musculoskeletal Disorder Additional Past Medical History / Comment(s): Bronchitis, coughing "jags", hiatal hernia, hemorrhoids, chronic cervical and back pain, cervical disc degeneration, migraines, RLS, R eye cataract. History of Any Multi-Drug Resistant Organisms: None Reported Past Surgical History: Appendectomy, Section, Cholecystectomy, Hysterectomy, Orthopedic Surgery Additional Past Surgical History / Comment(s): 2018 cardiac cath-treat medically, R knee arthroscopic surgery x2, bilateral heel spur removals, multiple laparoscopies, EGD, colonoscopies Past Anesthesia/Blood Transfusion Reactions: No Reported Reaction Additional Past Anesthesia/Blood Transfusion Reaction / Comment(s): no blood transfusion. mild clausterphobia Smoking Status: Former smoker - Past Family History Mother Additional Family Medical History / Comment(s): w/ sepsis after area removed from pancreas Father Family Medical History: Cancer Additional Family Medical History / Comment(s): stomach Brother(s) Family Medical History: Cancer Additional Family Medical History / Comment(s): colon- at age 52 Sister(s) Family Medical History: CVA/TIA Additional Family Medical History / Comment(s): cva- at age 55 Medications and Allergies Home Medications Medication Instructions Recorded Confirmed Type Cyclobenzaprine [Flexeril] 10 mg PO TID 07/04/15 06/14/20 History Pramipexole [Mirapex] 0.5 mg PO HS 07/04/15 06/14/20 History Sertraline HCl 100 mg PO DAILY 07/04/15 06/14/20 History Acetaminophen-Codeine 300-30mg 1 tab PO TID 07/11/17 06/14/20 History [Tylenol w/codeine #3] clonazePAM 0.5 mg PO TID 06/25/18 06/14/20 History Albuterol Inhaler [Ventolin Hfa 2 puff INHALATION RT-Q4H PRN 10/07/19 06/14/20 History Inhaler] Metoprolol Tartrate [Lopressor] 100 mg PO BID 10/07/19 06/14/20 History Zolpidem Tartrate [Ambien] 5 mg PO HS 10/07/19 06/14/20 History guaiFENesin-DM 100-10MG/5ML 10 ml PO Q6H PRN #120 ml 10/11/19 06/14/20 Rx [Robitussin DM] Atorvastatin [Lipitor] 40 mg PO HS 06/14/20 06/14/20 History Omeprazole [PriLOSEC] 20 mg PO AC-BID #60 cap 06/15/20 Rx Allergies Allergy/AdvReac Type Severity Reaction Status Date / Time pumpkin Allergy Anaphylaxis Verified 06/14/20 12:29 Sulfa (Sulfonamide Allergy Anaphylaxis Verified 01/27/21 12:29 Antibiotics) walnut Allergy Anaphylaxis Verified 06/14/20 12:29 Physical Exam Vitals: Vital Signs Temp Pulse Pulse Resp BP BP Pulse Ox 06/15/20 07:45 97.6 F 70 16 136/82 96 06/15/20 02:00 97.4 F L 69 16 122/75 94 L 06/14/20 20:00 97.8 F 94 17 129/82 95 06/14/20 14:19 80 20 143/96 97 Intake and Output 06/14/20 06/15/20 06/15/20 22:59 06:59 14:59 Intake Total 236 630.5 Balance 236 630.5 Intake: Intake, IV Titration 90.5 Amount Heparin Sod,Pork in 0.45% 90.5 NaCl 25,000 unit In 0.45 % NaCl 1 250ml.bag @ 11. 364 UNITS/KG/HR 10 mls/hr IV .Q24H JOI Rx#: [id number] Oral 236 540 Other: Voiding Method Toilet Toilet # Voids 1 2 2 Weight 87.997 kg PHYSICAL EXAMINATION: GENERAL: The patient is alert and oriented x3, not in any acute distress. Well developed, well nourished. HEENT: Pupils are round and equally reacting to light. EOMI. No scleral icterus. No conjunctival pallor. Normocephalic, atraumatic. No pharyngeal erythema. No thyromegaly. CARDIOVASCULAR: S1 and S2 present. No murmurs, rubs, or gallops. PULMONARY: Chest is clear to auscultation, no wheezing or crackles. ABDOMEN: Soft, nontender, nondistended, normoactive bowel sounds. No palpable organomegaly. MUSCULOSKELETAL: No joint swelling or deformity. EXTREMITIES: No cyanosis, clubbing, or pedal edema. NEUROLOGICAL: Gross neurological examination did not reveal any focal deficits. SKIN: No rashes. Results CBC & Chem 7: 06/15/20 02:05 06/14/20 11:54 Labs: Abnormal Lab Results - Last 24 Hours (Table) 06/14/20 06/14/20 06/15/20 Range/Units 11:54 20:52 02:02 APTT 93.4 H 41.8 H (22.0-30.0) sec BUN 19 H (7-17) mg/dL Glucose 126 H (74-99) mg/dL Triglycerides (0.0-149.0) mg/dL VLDL Cholesterol, Calc (5.00-40.00) mg/dL HDL Cholesterol (40.0-60.0) mg/dL 06/15/20 06/15/20 Range/Units 02:05 08:30 APTT 44.4 H (22.0-30.0) sec BUN (7-17) mg/dL Glucose (74-99) mg/dL Triglycerides 288.0 H (0.0-149.0) mg/dL VLDL Cholesterol, Calc 57.60 H (5.00-40.00) mg/dL HDL Cholesterol 28.0 L (40.0-60.0) mg/dL Thrombosis Risk Factor Assmnt - Choose All That Apply Any of the Below Risk Factors Present?: Yes Each Factor Represents 1 point: Obesity (BMI >25) Other Risk Factors: Yes Each Risk Factor Represents 2 Points: Age 61-74 years Other congenital or acquired thrombophilia - If yes, enter type in comment: No Thrombosis Risk Factor Assessment Total Risk Factor Score: 3 Thrombosis Risk Factor Assessment Level: Moderate Risk Assessment and Plan Plan: Retrosternal chest pain: Appears to be atypical noncardiac.. Stress test as per cardiology. Most probably related to her hiatal hernia patient will be referred to neurosurgeon gastroneurology as an outpatient patient may be a candidate for Margie fundoplication constant his symptoms prednisone will be discontinued and patient the Prilosec will be changed to 20 mg twice a day. -"Coronary artery disease -Gastroesophageal reflux disease -Hyperlipidemia -Hypertension -Depression After the stress test if that's negative patient will be discharged today with the above-mentioned plan
[2020-06-15 12:44] VITALS: BMI 31.3
[2020-06-15 14:22] VITALS: BP 112/76; PULSE 89; TEMP 98
--- NOTE | 2020-06-16 11:20 | ECHOF ---
Referral Reason:chest pain MEASUREMENTS -------- HEIGHT: 167.6 cm WEIGHT: 86.2 kg BP: RVIDd: 3.2 cm (< 3.3) IVSd: 1.4 cm (0.6 - 1.1) LVIDd: 2.5 cm (3.9 - 5.3) LVPWd: 1.5 cm (0.6 - 1.1) IVSs: 1.9 cm LVIDs: 1.9 cm LVPWs: 2.0 cm Ao Diam: 2.8 cm (2.0 - 3.7) AV Cusp: 1.8 cm (1.5 - 2.6) LA Diam: 2.7 cm (2.7 - 3.8) MV EXCURSION: 14.230 mm (> 18.000) MV EF SLOPE: 118 mm/s (70 - 150) EPSS: 0.2 cm MV E Baron: 0.71 m/s MV DecT: 205 ms MV A Baron: 0.74 m/s MV E/A Ratio: 0.96 RAP: 5.00 mmHg RVSP: 29.66 mmHg FINDINGS -------- Sinus rhythm. This was a technically difficult study with suboptimal views. The left ventricular size is normal. There is moderate concentric left ventricular hypertrophy. O verall left ventricular systolic function is normal with, an EF between 55 - 60 %. The right ventricle is normal in size. The left atrial size is normal. The right atrial size is normal. Lumason used The aortic valve is trileaflet, and appears structurally normal. No aortic stenosis or regurgitation. The mitral valve is normal. There is trace mitral regurgitation. The tricuspid valve appears structurally normal. Trace tricuspid regurgitation present. Right ines tricular systolic pressure is normal at < 35 mmHg. There is no pulmonic regurgitation present. The aortic root size is normal. IVC Not well visulized. There is no pericardial effusion. CONCLUSIONS -------- 1. There is moderate concentric left ventricular hypertrophy. 2. Overall left ventricular systolic function is normal with, an EF between 55 - 60 %. 3. The aortic valve is trileaflet, and appears structurally normal. No aortic stenosis or regurgitati on. 4. There is trace mitral regurgitation. 5. Trace tricuspid regurgitation present. 6. There is no pericardial effusion. DISK OPERATOR: Alma Quintana [facility]
--- NOTE | 2020-06-20 09:44 | P.STRESS ---
- Stress Test Note Stress Test Results/Findings: Exam Performed: dobutamine stress echo Exam Date: 06/15/20 Reason for Exam: Chest Pain Height: 5 ft 6 in Weight: 88 kg Protocol: Tang Stage: 4 Duration of Exercise: 14:12 infusion time Resting Heart Rate: 74 Resting Blood Pressure: 127/75 Maximum Achieved Heart Rate: 150 Maximum Achieved Blood Pressure: 189/64 85% PMHR: 133 100% PMHR: 157 METS: na Technologist Comment: Stress Test Results/Findings: This is a 64-year-old female with history of hypertension, hypercholesteremia, and also smoking history. Being evaluated for symptoms of chest pain and shortness of breath. Stress data: Baseline EKG showed a sinus rhythm. Blood pressure at rest is 127/75, pulse rate of 74. A standard dose of dobutamine was initiated at 10 mics and was titrated to 40 mics reaching a maximum heart rate of 150 and blood pressure 189/64. EKGs taken during and after the dobutamine infusion did not r eveal any significant changes of ischemia. Patient did not experience any chest pain. Echo data: Baseline echo images show normal wall motion and thickening. Echo images taken at low dose and high dose dobutamine showed progressive augmentation of wall motion and thickening. Final impression: #1. Negative dobutamine stress test #2. Negative dobutamine stress echo
--- NOTE | 2020-06-20 13:04 | ECHOS ---
Stress Test Results/Findings: Exam Performed: dobutamine stress echo Exam Date: 06/15/20 Reason for Exam: Chest Pain Height: 5 ft 6 in Weight: 88 kg Protocol: Tang Stage: 4 Duration of Exercise: 14:12 infusion time Resting Heart Rate: 74 Resting Blood Pressure: 127/75 Maximum Achieved Heart Rate: 150 Maximum Achieved Blood Pressure: 189/64 85% PMHR: 133 100% PMHR: 157 METS: na Technologist Comment: Stress Test Results/Findings: This is a 64-year-old female with history of hypertension, hypercholesteremia, and also smoking history. Being evaluated for symptoms of chest pain and shortness of breath. Stress data: Baseline EKG showed a sinus rhythm. Blood pressure at rest is 127/75, pulse rate of 74. A standard dose of dobutamine was initiated at 10 mics and was titrated to 40 mics reaching a maximum heart rate of 150 and blood pressure 189/64. EKGs taken during and after the dobutamine infusion did not reveal any significant changes of ischemia. Patient did not experience any chest pain. Echo data: Baseline echo images show normal wall motion and thickening. Echo images taken at low dose and high dose dobutamine showed progressive augmentation of wall motion and thickening. Final impression: #1. Negative dobutamine stress test #2. Negative dobutamine stress echo MTDD
== END 2020-06-15 14:50 | disposition home or self-care (01) ==
LOC: EC 11:34 → 6NMEDSUR 14:14
PROVIDERS: ADMIT Internal Medicine; ATTEND Internal Medicine
DX: R07.89 Other chest pain (principal); R06.00 Dyspnea, unspecified; R05 Cough; F32.9 Major depressive disorder, single episode, unspecified; I25.10 Atherosclerotic heart disease of native coronary artery without angina pectoris; R06.02 Shortness of breath; R11.0 Nausea; I10 Essential (primary) hypertension; E78.00 Pure hypercholesterolemia, unspecified; R61 Generalized hyperhidrosis; E78.5 Hyperlipidemia, unspecified; K21.9 Gastro-esophageal reflux disease without esophagitis; K64.9 Unspecified hemorrhoids; G89.29 Other chronic pain; M54.9 Dorsalgia, unspecified; M50.30 Other cervical disc degeneration, unspecified cervical region; G25.81 Restless legs syndrome; G43.909 Migraine, unspecified, not intractable, without status migrainosus; F41.9 Anxiety disorder, unspecified; E11.9 Type 2 diabetes mellitus without complications; K44.9 Diaphragmatic hernia without obstruction or gangrene; E66.9 Obesity, unspecified; Z68.31 Body mass index [BMI] 31.0-31.9, adult; Z90.710 Acquired absence of both cervix and uterus; Z79.899 Other long term (current) drug therapy; Z91.018 Allergy to other foods; Z88.2 Allergy status to sulfonamides; Z90.49 Acquired absence of other specified parts of digestive tract; Z87.891 Personal history of nicotine dependence; Z82.3 Family history of stroke; Z83.1 Family history of other infectious and parasitic diseases; Z80.0 Family history of malignant neoplasm of digestive organs
CPT/HCPCS: 96366 ×2; 96376; 96365; 96375; 99285; 36415; 93005; 93306; 93351; 85379; 80061; 80053; 83690; 83735; 84484; 85025; 85049; 85610; 85730 ×2; 71046; 71275; G0378 ×2; J2270 ×2; J1644 ×2; J2405 ×2; J0461; Q9950; Q9967

== ENCOUNTER → 2020-06-27 | Outpatient (CLI) | payer BC ==
--- NOTE | 2020-06-27 14:48 | CT ---
EXAMINATION TYPE: CT chest w con DATE OF EXAM: 06/27/2020 COMPARISON: Prior chest CT 06/14/2020 HISTORY: Chronic cough CT DLP: 451.80 mGycm Automated exposure control for dose reduction was used. CONTRAST: CT scan of the chest is performed with IV Contrast, patient injected with 100 ml mL of Isovue 300. FINDINGS: LUNGS: The lungs are grossly clear, there is no concerning parenchymal mass or nodule identified. T here is no pleural effusion or pneumothorax seen. The tracheobronchial tree is patent. MEDIASTINUM: There are no greater than 1 cm hilar or mediastinal lymph nodes. No pericardial effusi on is seen. AORTA: No additional significant abnormality is seen. OTHER: Patient is post cholecystectomy, there is some prominence of intrahepatic and extrahepatic bi liary ducts. Calcifications in the spleen likely related to old granulomatous disease. Spleen is mild ly enlarged. IMPRESSION: No interval change. Postop changes and splenomegaly.
== END | disposition home or self-care (01) ==
LOC: RADCTMAIN 12:21
PROVIDERS: ATTEND Internal Medicine
DX: R05 Cough (principal); Z90.49 Acquired absence of other specified parts of digestive tract
CPT/HCPCS: 71260; Q9967

== ENCOUNTER 2020-08-02 11:24 | Day surgery (SDC) | payer BC ==
[2020-08-01 11:00] VITALS: BMI 29.8
[~2020-08-02 11:24] MED LIST changes: +LIDOCAINE 1% (10MG/ML) FOR IV START INTRADERMA PRN
[2020-08-02 11:55] VITALS: TEMP 98.5
[2020-08-02] MEDS ORDERED: LIDOCAINE 1% INJ 10MG/ML (20 ML MDV) ONE (13:02)
[2020-08-02] MEDS ORDERED: ONDANSETRON 4 MG/2 ML VIAL ONE (13:02)
[2020-08-02] MEDS ORDERED: PROPOFOL 10 MG/ML 20 ML VIAL IV ONE (13:02)
--- NOTE | 2020-08-02 13:12 | P.PCN ---
Date of Procedure: 08/02/20 Procedure(s) Performed: BRIEF HISTORY: Patient is a 64-year-old, pleasant, white female scheduled for an upper endoscopy as a part of evaluation of epigastric pain for the last 2 years duration. . Symptoms happen almost on a daily basis. Worse with bending and lasts for 10 minutes and results. No associated heartburn, nausea vomiting PROCEDURE PERFORMED: Esophagogastroduodenoscopy with biopsy . PREOPERATIVE DIAGNOSIS: Chronic epigastric pain IV sedation per anesthesia. PROCEDURE: After informed consent was obtained, the patient was brought into the endoscopy unit. IV sedation was administered by Anesthesia under continuous monitoring. Initially the Olympus GIF-140 video endoscope was inserted into the mouth. Esophagus intubated without any difficulty. It was gradually advanced into the stomach and duodenum and carefully examined. The bulb and the second part of the duodenum appeared normal. The scope at this time was withdrawn to the stomach, adequately insufflated with air, and upon careful examination, mucosa of the antrum had mild gastritis and biopsies were done from this area. The , body, cardia and the fundus appeared normal. The scope was then withdrawn into the esophagus. The GE junction was located at 39 cm from the incisors. small sliding-type well hernia noted. It was circumferential erythema the GE junction consistent with LA grade A reflux esophagitis The esophagus appeared normal. There were no erosions or ulcerations seen and the patient tolerated the procedure well. IMPRESSION: 1. Mild diffuse antral gastritis 2. Small hiatal hernia and LA grade A reflux esophagitis. RECOMMENDATIONS: The findings of this examination were discussed with the mckenna ent as well as a family. She was advised to follow with the biopsy results. She will continue with omeprazole 20 mg daily and follow antireflux measures
[2020-08-02] MEDS ORDERED: guaiFENesin SYRUP 100MG/5ML 200 MG/10 ML CUP PO PRN (13:34)
[2020-08-02 13:35] VITALS: BP 150/94; PULSE 99; RESP 16
== END 2020-08-02 14:22 | disposition home or self-care (01) ==
LOC: ORWHC2ENDO 11:24
PROVIDERS: ATTEND Internal Medicine Gastroenterology
DX: K21.00 Gastro-esophageal reflux disease with esophagitis, without bleeding (principal); K29.50 Unspecified chronic gastritis without bleeding; K31.9 Disease of stomach and duodenum, unspecified; K44.9 Diaphragmatic hernia without obstruction or gangrene; I25.119 Atherosclerotic heart disease of native coronary artery with unspecified angina pectoris; I10 Essential (primary) hypertension; E78.5 Hyperlipidemia, unspecified; Z87.891 Personal history of nicotine dependence; Z79.899 Other long term (current) drug therapy; Z88.0 Allergy status to penicillin; Z88.2 Allergy status to sulfonamides; Z91.018 Allergy to other foods; Z90.710 Acquired absence of both cervix and uterus; Z90.49 Acquired absence of other specified parts of digestive tract
CPT/HCPCS: 88305; 43239; J2405; J2001; J2704

== ENCOUNTER → 2020-11-21 | Outpatient (CLI) | payer BC ==
--- NOTE | 2020-11-22 09:53 | MM ---
Reason for exam: clinical finding. Last mammogram was performed 3 years and 1 month ago. History: Patient is postmenopausal. Benign excisional biopsy of the right breast, April 27, 1999. Took estrogen for 12 years. Indicated problem(s): lump or thickening in the right breast. Physical Findings: Nurse Summary: 2cm nodule in the right breast at 12-1 o'clock (nurse mj). MG 3D Diag Mammo W/Cad NICK Bilateral CC and MLO view(s) were taken. Prior study comparison: November 04, 2017, bilateral MG screening mammo w CAD. May 31, 2016, bilateral MG screening mammo w CAD. April 18, 2015, bilateral MG screening mammo w CAD. There are scattered fibroglandular densities. Right lump 12 o'clock-1 o'clock posterior depth. Right axillary lymph node 1.5cm axilla, stable since 2016. Skin dimpling upper outer right breast, stable. Left breast negative. These results were verbally communicated with the patient and result sheet given to the patient on 11/21/20. ASSESSMENT: Incomplete: need additional imaging evaluation, BI-RAD 0 RECOMMENDATION: Ultrasound of the right breast.
--- NOTE | 2020-11-22 09:55 | USB ---
Reason for exam: additional evaluation requested from abnormal screening. History: Patient is postmenopausal. Benign excisional biopsy of the right breast, April 27, 1999. Took estrogen for 12 years. US Breast Limited RT Technologist: Gisell Penaloza Right limited breast ultrasound including focal area of concern, retroareolar and axilla demonstrates a 3.2 x 2.5 x 1.4cm hyperechoic lesion at 1 o'clock, lipoma, benign appearing. Right axillary lymph node not visualized, stable since 2017. Scar at skin dimpling. These results were verbally communicated with the patient and result sheet given to the patient on 11/21/20. ASSESSMENT: Benign, BI-RAD 2 RECOMMENDATION: Routine screening mammogram of both breasts in 1 year.
== END | disposition home or self-care (01) ==
LOC: RADMAMWWP 10:59
PROVIDERS: ATTEND Family Medicine
DX: N63.15 Unspecified lump in the right breast, overlapping quadrants (principal); D17.79 Benign lipomatous neoplasm of other sites
CPT/HCPCS: 77062; 77066

== ENCOUNTER → 2021-03-01 | Outpatient (CLI) | payer BC ==
[2021-03-01 10:00] LABS: Basophils % (A) 0 %; Eosinophils # (A) 0.2 k/uL (0-0.7); Eosinophils % (A) 3 %; HCT 37.5 % (34.0-46.0); HGB 12.6 gm/dL (11.4-16.0); Lymphocytes # (A) 1.6 k/uL (1.0-4.8); Lymphocytes % (A) 26 %; MCH 26.8 pg (25.0-35.0); MCHC 33.5 g/dL (31.0-37.0); Mean Platelet Volume 7.1; Monocytes # (A) 0.3 k/uL (0-1.0); Monocytes % (A) 4 %; Neutrophils # (A) 3.9 k/uL (1.3-7.7); Neutrophils % (A) 64 %; Platelet Count 204 k/uL (150-450); Poikilocytosis Slight; RBC 4.68 m/uL (3.80-5.40); RDW 15.3 % (11.5-15.5); WBC 6.1 k/uL (3.8-10.6)
[2021-03-01 10:51] LABS: Calcium 9.4 mg/dL (8.4-10.2); Potassium 4.5 mmol/L (3.5-5.1); Total Bilirubin 0.3 mg/dL (0.2-1.3); Total Protein 6.9 g/dL (6.3-8.2)
[2021-03-01 22:03] LABS: Chol/HDL Ratio 7.41 Ratio
== END | disposition home or self-care (01) ==
LOC: LABPAT 09:25
PROVIDERS: ATTEND Family Medicine
DX: Z00.00 Encounter for general adult medical examination without abnormal findings (principal); Z11.59 Encounter for screening for other viral diseases
CPT/HCPCS: 80053; 80061; 84443; 85025; 86803

== ENCOUNTER 2021-03-30 18:33 | Emergency (ER) | payer BC ==
[2021-03-30 19:30] VITALS: RESP 18; TEMP 97.4
--- NOTE | 2021-03-30 20:25 | XR ---
EXAMINATION TYPE: XR foot complete LT DATE OF EXAM: 03/30/2021 COMPARISON: NONE HISTORY: Pain TECHNIQUE: 3 views FINDINGS: There is plantar calcaneal spurring. Metatarsals are intact. There is narrowing and spurrin g at the first MP joint. I see no fracture nor dislocation. IMPRESSION: Degenerative hypertrophic changes. No fracture seen.
[2021-03-30 22:46] VITALS: BP 144/77; PULSE 103
[2021-03-30] MEDS ORDERED: IBUPROFEN 600 MG TAB PO STA (22:47)
--- NOTE | 2021-03-30 22:51 | ED ---
Lower Extremity Injury HPI - General Chief Complaint: Extremity Injury, Lower Stated Complaint: Foot injury Time Seen by Provider: 03/30/21 22:28 Source: patient, RN notes reviewed Mode of arrival: wheelchair Limitations: no limitations - History of Present Illness Initial Comments: Patient is a 65-year-old female presenting to the emergency department with complaints of pain on her left foot. She states prior to arrival, she was getting something out of her shed when the 2 x 4 fell on top of her left foot. She states is very painful to walk. She has had previous surgery of her left foot for a few spurs. She denies any other injuries or any other complaints today. - Related Data Home Medications Medication Instructions Recorded Confirmed Cyclobenzaprine [Flexeril] 10 mg PO TID 07/04/15 08/01/20 Pramipexole [Mirapex] 0.5 mg PO HS 07/04/15 08/01/20 Sertraline HCl 100 mg PO DAILY 07/04/15 08/01/20 Acetaminophen-Codeine 300-30mg 1 tab PO TID 07/11/17 08/01/20 [Tylenol w/codeine #3] clonazePAM 0.5 mg PO TID 06/25/18 08/01/20 Albuterol Inhaler [Ventolin Hfa 2 puff INHALATION RT-Q4H PRN 10/07/19 08/01/20 Inhaler] Metoprolol Tartrate [Lopressor] 100 mg PO BID 10/07/19 08/01/20 Zolpidem Tartrate [Ambien] 5 mg PO HS 10/07/19 08/01/20 Atorvastatin [Lipitor] 40 mg PO HS 06/14/20 08/01/20 Previous Rx's Medication Instructions Recorded guaiFENesin-DM 100-10MG/5ML 10 ml PO Q6H PRN #120 ml 10/11/19 [Robitussin DM] Omeprazole [PriLOSEC] 20 mg PO AC-BID #60 cap 06/15/20 Allergies Allergy/AdvReac Type Severity Reaction Status Date / Time pumpkin Allergy Anaphylaxis Verified 03/30/21 19:30 Sulfa (Sulfonamide Allergy Anaphylaxis Verified 03/30/21 19:30 Antibiotics) walnut Allergy Anaphylaxis Verified 03/30/21 19:30 Review of Systems ROS Statement: Those systems with pertinent positive or pertinent negative responses have been documented in the HPI. ROS Other: All systems not noted in ROS Statement are negative. Past Medical History Past Medical History: Coronary Artery Disease (CAD), Chest Pain / Angina, Eye Disorder, GERD/Reflux, Hyperlipidemia, Hypertension, Musculoskeletal Disorder Additional Past Medical History / Comment(s): Bronchitis, coughing "jags", hiatal hernia, hemorrhoids, chronic cervical and back pain, cervical disc degeneration, migraines, RLS, R eye cataract. History of Any Multi-Drug Resistant Organisms: None Reported Past Surgical History: Appendectomy, Section, Cholecystectomy, Heart Catheterization, Hysterectomy, Orthopedic Surgery Additional Past Surgical History / Comment(s): 2018 cardiac cath-treat medically, R knee arthroscopic surgery x2, bilateral heel spur removals, multiple laparoscopies, EGD, colonoscopies Past Anesthesia/Blood Transfusion Reactions: No Reported Reaction Additional Past Anesthesia/Blood Transfusion Reaction / Comment(s): no blood transfusion. mild claustrophobia Past Psychological History: Anxiety, Depression Smoking Status: Former smoker Past Alcohol Use History: None Reported Past Drug Use History: None Reported - Past Family History Mother Additional Family Medical History / Comment(s): w/ sepsis after area removed from pancreas Father Family Medical History: Cancer Additional Family Medical History / Comment(s): stomach Brother(s) Family Medical History: Cancer Additional Family Medical History / Comment(s): colon- at age 52 Sister(s) Family Medical History: CVA/TIA Additional Family Medical History / Comment(s): cva- at age 55 General Exam - General Exam Comments Initial Comments: GENERAL: Patient is well-developed and well-nourished. Patient is nontoxic and in no acute distress. HEAD: Atraumatic, normocephalic. EYES: Pupils equal round and reactive to light, extraocular movements intact, sclera anicteric, conjunctiva are normal. Eyelids were unremarkable. LUNGS: Unlabored respirations. Breath sounds clear to auscultation bilaterally and equal. No wheezes rales or rhonchi. HEART: Regular rate and rhythm without murmurs, rubs or gallops. MUSCULOSKELETAL: Patient has pain to palpation of the dorsum of her left foot, there is some mild swelling present, she does have decreased active range of motion secondary to pain. Neurovascular intact. No clubbing or cyanosis. NEUROLOGICAL: Patient is alert and oriented x 3. SKIN: Warm, Dry, normal turgor, no rashes or lesions noted. Course Vital Signs 03/30/21 03/30/21 19:24 22:43 Temperature 97.4 F L Pulse Rate 90 103 H Respiratory 18 18 Rate Blood Pressure 111/69 144/77 O2 Sat by Pulse 96 95 Oximetry Medical Decision Making - Medical Decision Making Patient is 65-year-old female here for left foot pain after a 2 x 4 fell on top of her foot prior to arrival. X-rays reveal no acute fractures dislocations. This is foot contusion, we discussed using Channing wrap, ice, ibuprofen for any discomfort. If symptoms persist after 2 weeks, follow up with her doctor. She is agreeable to this plan of care and she is stable for discharge. Disposition Clinical Impression: Contusion of left foot Disposition: HOME SELF-CARE Condition: Stable Instructions (If sedation given, give patient instructions): Foot Contusion (ED) Additional Instructions: Please return to the Emergency Department if symptoms worsen or any other concerns. Recommend ice to the area, Channing wrap for support. Recommend Tylenol and/or ibuprofen for any discomfort. If symptoms persist after 2 weeks, follow-up with your doctor. Is patient prescribed a controlled substance at d/c from ED?: No Referrals: Rossi Lee MD [Primary Care Provider] - 1-2 days Time of Disposition: 22:51
== END 2021-03-30 23:05 | disposition home or self-care (01) ==
LOC: EC 18:33
DX: S90.32XA Contusion of left foot, initial encounter (principal); I25.10 Atherosclerotic heart disease of native coronary artery without angina pectoris; K21.9 Gastro-esophageal reflux disease without esophagitis; E78.5 Hyperlipidemia, unspecified; I10 Essential (primary) hypertension; F41.9 Anxiety disorder, unspecified; F32.9 Major depressive disorder, single episode, unspecified; Z88.2 Allergy status to sulfonamides; Z90.49 Acquired absence of other specified parts of digestive tract; Z90.710 Acquired absence of both cervix and uterus; Z87.891 Personal history of nicotine dependence; Z87.19 Personal history of other diseases of the digestive system; W22.8XXA Striking against or struck by other objects, initial encounter
CPT/HCPCS: 99283

== ENCOUNTER → 2021-04-20 | Day surgery (SDC) | payer BC ==
[2021-04-18 09:20] VITALS: BMI 29.9
[~2021-04-20] MED LIST changes: +LIDOCAINE 1% (10MG/ML) FOR IV START INTRADERMA ONE; -LIDOCAINE 1% (10MG/ML) FOR IV START INTRADERMA PRN; +PROPOFOL 10 MG/ML 20 ML VIAL IV ONE
[2021-04-20 09:28] VITALS: TEMP 97
--- NOTE | 2021-04-20 10:19 | P.PCN ---
Date of Procedure: 04/20/21 Procedure(s) Performed: BRIEF HISTORY: Patient is a 65-year-old pleasant female scheduled for an elective colonoscopy as a part of screening for colon cancer and family history of colon cancer. Her brother was diagnosed with colon cancer at age 52. PROCEDURE PERFORMED: Colonoscopy. PREOPERATIVE DIAGNOSIS: Screening for colon cancer and family history of colon cancer. IV sedation per Anesthesia. PROCEDURE: After informed consent was obtained, the patient, was brought into the endoscopy unit. IV sedation was administered by Anesthesia under continuous monitoring. Digital rectal examination was normal. Initially the Olympus CF-160 flexible video colonoscope was then inserted in the rectum, gradually advanced into the cecum without any difficulty. Careful examination was performed as the scope was gradually being withdrawn. Ileocecal valve and the appendiceal orifice were visualized and appeared normal. Prep was fair. Mucosa of the cecum, ascending colon, transverse colon, descending colon, sigmoid colon, and rectum appeared normal. Retroflexion was performed in the rectum and 2 internal hemorrhoids were seen. The patient tolerated the procedure well. IMPRESSION: Normal-appearing colon from rectum to cecum with no evidence of colorectal neoplasia Grade 2 internal hemorrhoids RECOMMENDATIONS: Findings of this examination were discussed with the patient in his family. He was advised to have a repeat screening colonoscopy every 5 years because of the strong family history of colon cancer.
[2021-04-20 10:24] VITALS: RESP 17
[2021-04-20 10:40] VITALS: BP 138/65; PULSE 69
== END ==
LOC: ORWHC2ENDO 08:50
PROVIDERS: ATTEND Internal Medicine Gastroenterology
DX: Z12.11 Encounter for screening for malignant neoplasm of colon (principal); K64.8 Other hemorrhoids; I25.10 Atherosclerotic heart disease of native coronary artery without angina pectoris; I10 Essential (primary) hypertension; E78.5 Hyperlipidemia, unspecified; Z80.0 Family history of malignant neoplasm of digestive organs; Z79.899 Other long term (current) drug therapy; Z88.2 Allergy status to sulfonamides
CPT/HCPCS: J2704; G0105

== ENCOUNTER → 2022-01-17 | Outpatient (CLI) | payer BC ==
--- NOTE | 2022-01-17 15:34 | MM ---
Reason for Exam: Clinical finding. Last mammogram was performed 1 year(s) and 2 month(s) ago. Patient History: Menarche at age 12. First Full-Term at age 26. Left ovary removed at age 37. Right ovary removed at age 37. Hysterectomy at age 37. Postmenopausal. Patient used Estrogen for 12 years. 04/27/1999, Benign Excisional Biopsy on the right side. Risk Values: Makenzie 5 year model risk: 2.4%. NCI Lifetime model risk: 8.9%. Prior Study Comparison: 12/01/1994 Screening Mammogram, Unknown. 12/04/1994 Screening Mammogram, Unknown. 04/03/1998 Bilateral Special View Mammogram, [facility]. 04/11/1999 Bilateral Screening Mammogram, [facility]. 04/18/1999 Right Special View Mammogram, [facility]. 04/18/1999 Right Diagnostic Ultrasound, [facility]. 04/27/1999 Screening Mammogram, Unknown. 02/20/2001 Bilateral Diagnostic Mammogram, [facility]. 02/24/2002 Bilateral Screening Mammogram, [facility]. 04/06/2003 Bilateral Screening Mammogram, [facility]. 05/09/2004 Bilateral Screening Mammogram, [facility]. 06/21/2005 Bilateral Screening Mammogram, [facility]. 06/27/2006 Bilateral Screening Mammogram, [facility]. 03/11/2008 Bilateral Screening Mammogram, [facility]. 06/16/2009 Bilateral Screening Mammogram, [facility]. 03/26/2011 Bilateral Screening Mammogram, [facility]. 06/19/2012 Bilateral Screening Mammogram, [facility]. 12/31/2013 Bilateral Screening Mammogram, [facility]. 04/18/2015 Bilateral Screening Mammogram, [facility]. 05/31/2016 Bilateral Screening Mammogram, [facility]. 11/04/2017 Bilateral Screening Mammogram, [facility]. 11/21/2020 Bilateral Diagnostic Mammogram, [facility]. 11/21/2020 Right Diagnostic Ultrasound, [facility]. Tissue Density: There are scattered fibroglandular densities. Findings: Analyzed By CAD. There are a few small scattered benign-appearing round calcifications throughout the bilateral breasts redemonstrated. Stable distortion upper outer right breast from prior biopsy. No suspicious new mass or distortion in either breast. Overall Assessment: Benign, BI-RAD 2 Management: Screening Mammogram of both breasts in 1 year. Managed patient's symptoms of vague pain on clinical basis. Return to routine follow-up. Results were given to the patient verbally at the time of exam. Electronically signed and approved by: Rebel Santiago M.D.
--- NOTE | 2022-01-18 15:40 | BD ---
EXAMINATION TYPE: Axial Bone Density DATE OF EXAM: 01/17/2022 COMPARISON: NONE CLINICAL HISTORY: 66 years year old Female. ICD-10 CODE: Z780 ASYMPTOMATIC [place] STATE Height: 65 Weight: 191.6 FRAX RISK QUESTIONS: Alcohol (3 or more units per day): NO Family History (Parent hip fracture): NO Glucocorticoids (More than 3mos): NO History of Fracture in Adulthood: NO Secondary Osteoporosis: 1. Type 1 Diabetes: NO 2. Hyperthyroidism: NO 3. Menopause before 45: YES 4. Malnutrition: NO 5. Chronic liver disease: NO Rheumatoid Arthritis: NO Current Tobacco Use: NO RISK FACTORS HISTORY OF: Hip Fracture (Right/Left): NO Spine Fracture: NO History of Wrist Fracture: NO Surgery to Spine/Hip(right/left)/Wrist (right/left): NO Family History of Osteoporosis: NO Active: YES Diet low in dairy products/other sources of calcium: YES Postmenopausal woman: YES Take estrogen and/or progesterone medications: NO Lost more than 2 inches in height since high school: YES Frequent falls: NO Poor Health: NO Hyperparathyroidism: NO Adrenal Insufficiency: NO MEDICATIONS: Prednisone or other steroids: NO Thyroid Medications: NO Osteoporosis Medications: NO Additional Medications: REFLUX MEDS, BP MEDS, EXAM MEASUREMENTS: Bone mineral densitometry was performed using the [employer] System. Bone mineral density as measured about the Lumbar spine is: ----- L1-L4(G/cm2): 1.266 T Score Values are as follows: ----- L1: -0.6 ----- L2: 0.1 ----- L3: 1.9 ----- L4: 1.2 ----- L1-L4: 0.7 Bone mineral density has: DECREASED 02.4 % since study of: 05/31/2016 Bone mineral density about the R hip (g/cm2): 0.867 Bone mineral density about the L hip (g/cm2): 0.859 T Score values are as follows: -----R Neck: -1.2 -----L Neck: -1.3 -----R Total: -0.9 -----L Total: -0.6 Bone mineral density has: DECREASED 0.5 % since study of: 05/31/2016 FRAX%s: The graph provided illustrates a 8.0% chance for a major osteoporotic fx and a 0.7% chance fo r the hips probability for fx in 10 years time. IMPRESSION: Osteopenia (T Score between -2.5 and -1). There is slightly increased risk of fracture and the patient may be considered for treatment. Re-Screen 2-5 years. NOTE: T-SCORE=SD OF THE YOUNG ADULT MEAN.
== END | disposition home or self-care (01) ==
LOC: RADMAMWWP 14:57
PROVIDERS: ATTEND Family Medicine
DX: N63.10 Unspecified lump in the right breast, unspecified quadrant (principal); M85.89 Other specified disorders of bone density and structure, multiple sites; Z78.0 Asymptomatic menopausal state
CPT/HCPCS: 77062; 77066; 77080

== ENCOUNTER → 2023-07-03 | Outpatient (CLI) | payer MEDICARE ==
--- NOTE | 2023-07-05 21:01 | MR ---
EXAMINATION TYPE: MR lumbar spine wo con DATE OF EXAM: 07/03/2023 9:03 AM CLINICAL INDICATION:Female, 67 years old with history of M62.81 MUSCLE WEAKNESS (GENERALIZED); PHH, L ow back pain into rt lower extremity COMPARISON: None TECHNIQUE: Multi planar, multi sequence imaging was performed utilizing: T1-weighted, T2-weighted, a nd turbo inversion recovery imaging of the lumbar spine. IV Contrast: cc . (None if empty) FINDINGS: Alignment: The lumbar vertebral bodies have preserved heights and alignment. Cord: The conus medullaris and the distal spinal cord appear unremarkable with regards to their signa l intensity and morphology. Bones/Discs: Mild degeneration changes throughout the spine with osteophyte formation and facet joint arthropathy. Intervertebral disc signal is maintained. Superior articulation of the spinous processe s. T12-L1: No evidence of significant spinal canal stenosis or neural foraminal stenosis. L1-L2: No evidence of significant spinal canal stenosis or neural foraminal stenosis. L2-L3: Disc bulge and facet joint arthropathy result in mild spinal canal and moderate bilateral neur al foraminal stenosis. L3-L4: Disc bulge and facet joint arthropathy result in mild spinal canal and mild to moderate bilate ral neural foraminal stenosis. L4-L5: Disc bulge and facet joint arthropathy result in mild spinal canal and moderate right and mode rate to severe left neural foraminal stenosis. L5-S1: The disc is rounded posterior morphology without significant spinal canal stenosis. Facet join t arthropathy with mild bilateral neural foraminal stenosis. No significant spinal canal or neural foraminal stenosis in the remainder of the visualized levels. Other findings: Gallbladder wall fold. IMPRESSION: 1. No definitive evidence of disc herniation or significant spinal canal stenosis. 2. [id number]-[id number] disc degeneration with associated osteoarthritic changes, neural foraminal steno sis worse at L4-L5 with moderate right and moderate severe left. 3. Pseudoarticulation of the spinous processes correlate for Baastrup's disease.
== END | disposition home or self-care (01) ==
LOC: RADMRIMAIN 08:00
PROVIDERS: ATTEND Pain Medicine Interventional Pain Medicine
DX: M62.81 Muscle weakness (generalized) (principal); M51.36 Other intervertebral disc degeneration, lumbar region; M99.73 Connective tissue and disc stenosis of intervertebral foramina of lumbar region; M48.26 Kissing spine, lumbar region
CPT/HCPCS: 72148

== ENCOUNTER 2024-04-02 15:07 | Emergency (ER) | payer MEDICARE ==
[2024-04-02 15:20] VITALS: TEMP 98
--- NOTE | 2024-04-02 16:23 | XR ---
EXAMINATION TYPE: XR chest 2V DATE OF EXAM: 04/02/2024 4:20 PM COMPARISON: Chest radiographs from 06/14/2020 CLINICAL INDICATION: Female, 68 years old with history of Cough; [facility] TECHNIQUE: XR chest 2V Frontal and lateral views of the chest. FINDINGS: Lungs/Pleura: There is no evidence of pleural effusion, focal consolidation, or pneumothorax. Pulmonary vascularity: Unremarkable. Heart/mediastinum: Cardiomediastinal silhouette is enlarged and stable. Musculoskeletal: No acute osseous pathology. IMPRESSION: No acute cardiopulmonary disease/process. [facility] Katlyn Blandon, , 04/02/2024 4:21 PM
--- NOTE | 2024-04-02 16:41 | ED ---
URI HPI - General Chief Complaint: Upper Respiratory Infection Stated Complaint: cough/congestion Time Seen by Provider: 04/02/24 15:22 Source: patient, RN notes reviewed Mode of arrival: ambulatory Limitations: no limitations - History of Present Illness Initial Comments: This is a 68-year-old female presenting with dry cough x 3 weeks. Patient states she has seen her primary care twice and received azithromycin, IM steroids and inhaler with minimal relief of symptoms. Patient endorses recent sick contact with and grandchildren who his symptoms have since resolved. Patient endorses some reproducible chest pain with coughing and chest "tightness". Patient denies fever, chills, fatigue, dizziness, constant chest pain, abdominal pain, N/V/D. MD Complaint: cough Onset/Timin -: week(s) Context: sick contacts Treatments Prior to Arrival: antibiotics, other (Steroids, albuterol) - Related Data Home Medications Medication Instructions Recorded Confirmed Cyclobenzaprine [Flexeril] 10 mg PO TID 07/04/15 04/18/21 Pramipexole [Mirapex] 0.5 mg PO HS 07/04/15 04/18/21 Sertraline HCl 100 mg PO DAILY 07/04/15 04/18/21 Acetaminophen-Codeine 300-30mg 1 tab PO TID 07/11/17 04/18/21 [Tylenol w/codeine #3] clonazePAM 0.5 mg PO TID 06/25/18 04/18/21 Albuterol Inhaler [Ventolin Hfa 2 puff INHALATION RT-Q4H PRN 10/07/19 04/18/21 Inhaler] Metoprolol Tartrate [Lopressor] 100 mg PO BID 10/07/19 04/18/21 Zolpidem Tartrate [Ambien] 5 mg PO HS 10/07/19 04/18/21 Atorvastatin [Lipitor] 40 mg PO HS 06/14/20 04/18/21 Previous Rx's Medication Instructions Recorded guaiFENesin-DM 100-10MG/5ML 10 ml PO Q6H PRN #120 ml 10/11/19 [Robitussin DM] Omeprazole [PriLOSEC] 20 mg PO AC-BID #60 cap 06/15/20 predniSONE [Deltasone] 60 mg PO DAILY #32 tab 11/15/24 Allergies Allergy/AdvReac Type Severity Reaction Status Date / Time pumpkin Allergy Anaphylaxis Verified 04/02/24 15:17 Sulfa (Sulfonamide Allergy Anaphylaxis Verified 04/02/24 15:17 Antibiotics) walnut Allergy Anaphylaxis Verified 04/02/24 15:17 Review of Systems ROS Statement: Those systems with pertinent positive or pertinent negative responses have been documented in the HPI. ROS Other: All systems not noted in ROS Statement are negative. Past Medical History Past Medical History: Coronary Artery Disease (CAD), Chest Pain / Angina, Eye Disorder, GERD/Reflux, Hyperlipidemia, Hypertension, Musculoskeletal Disorder Additional Past Medical History / Comment(s): Bronchitis, coughing "jags", hiatal hernia, hemorrhoids, chronic cervical and back pain, cervical disc degeneration, migraines, RLS, R eye cataract. History of Any Multi-Drug Resistant Organisms: None Reported Past Surgical History: Appendectomy, Section, Cholecystectomy, Heart Catheterization, Hysterectomy, Orthopedic Surgery Additional Past Surgical History / Comment(s): 2018 cardiac cath-treat medically, R knee arthroscopic surgery x2, bilateral heel spur removals, multiple laparoscopies, EGD, colonoscopies Past Anesthesia/Blood Transfusion Reactions: No Reported Reaction Additional Past Anesthesia/Blood Transfusion Reaction / Comment(s): no blood transfusion. mild claustrophobia Past Psychological History: Anxiety, Depression Smoking Status: Former smoker Past Alcohol Use History: None Reported Past Drug Use History: None Reported - Past Family History Mother Family Medical History: Cancer Additional Family Medical History / Comment(s): w/ sepsis after area removed from pancreas Father Family Medical History: Cancer Additional Family Medical History / Comment(s): stomach Brother(s) Family Medical History: Cancer Additional Family Medical History / Comment(s): colon- at age 52 Sister(s) Family Medical History: CVA/TIA Additional Family Medical History / Comment(s): cva- at age 55 General Exam Limitations: no limitations General appearance: alert, in no apparent distress Head exam: Present: atraumatic, normocephalic, normal inspection Eye exam: Present: normal appearance, PERRL, EOMI. Absent: scleral icterus, conjunctival injection, periorbital swelling ENT exam: Present: normal exam, mucous membranes moist Neck exam: Present: normal inspection. Absent: tenderness, meningismus, lymphadenopathy Respiratory exam: Present: wheezes, decreased breath sounds, prolonged expirator y. Absent: respiratory distress, rales, rhonchi, stridor Cardiovascular Exam: Present: regular rate, normal rhythm, normal heart sounds. Absent: systolic murmur, diastolic murmur, rubs, gallop, clicks GI/Abdominal exam: Present: soft, normal bowel sounds. Absent: distended, tenderness, guarding, rebound, rigid Extremities exam: Present: normal inspection, full ROM, normal capillary refill. Absent: tenderness, pedal edema, joint swelling, calf tenderness Back exam: Present: normal inspection Neurological exam: Present: alert, oriented X3, CN II-XII intact Psychiatric exam: Present: normal affect, normal mood Skin exam: Present: warm, dry, intact, normal color. Absent: rash Course Vital Signs 04/02/24 04/02/24 04/02/24 15:17 18:24 18:32 Temperature 98 F Pulse Rate 101 H 72 72 Respiratory 22 18 18 Rate Blood Pressure 162/90 O2 Sat by Pulse 98 Oximetry 04/02/24 19:01 Temperature Pulse Rate 92 Respiratory 20 Rate Blood Pressure 135/71 O2 Sat by Pulse 95 Oximetry Medical Decision Making - Medical Decision Making Was pt. sent in by a medical professional or institution (, PA, FISH HATCHERY INSPECTOR, urgent care, hospital, or [facility]...) When possible be specific @ -No Did you speak to anyone other than the patient for history (EMS, parent, family, police, friend...)? What history was obtained from this source @ -No Did you review nursing and triage notes (agree or disagree)? Why? @ -I reviewed and agree with nursing and triage notes Were old charts reviewed (outside hosp., previous admission, EMS record, old EKG, old radiological studies, urgent care reports/EKG's, [facility] records)? Report findings @ -No old charts were reviewed Differential Diagnosis (chest pain, altered mental status, abdominal pain women, abdominal pain men, vaginal bleeding, weakness, fever, dyspnea, syncope, headache, dizziness, GI bleed, back pain, seizure, CVA, palpatations, mental health, musculoskeletal)? @ -Differential Dyspnea: Coronary syndrome, arrhythmia, tamponade, asthma, COPD, pulmonary embolism, pneumonia, pneumothorax, pulmonary effusion, anaphylaxis, diabetic ketoacidosis, flailed chest, pulmonary contusion, diaphragmatic rupture, anemia, neuromuscular , this is not meant to be an all-inclusive list. EKG interpreted by me (3pts min.). @ -Sinus rhythm without ST changes or T wave inversion. Ventricular rate 86 bpm, LIBRADO 153 ms, QRS duration 96 ms, QTc 4 3 ms. X-rays interpreted by me (1pt min.). @ -Chest x-ray reveals no infiltrates, pulmonary edema or pneumothorax. CT interpreted by me (1pt min.). @ -None done U/S interpreted by me (1pt. min.). @ -None done What testing was considered but not performed or refused? (CT, X-rays, U/S, labs)? Why? @ -None What meds were considered but not given or refused? Why? @ -None Did you discuss the management of the patient with other professionals (professionals i.e. , PA, FISH HATCHERY INSPECTOR, lab, RT, psych nurse, adoption social worker, patent lawyer, teacher, bsa/aml compliance officer, therapeutic case manager)? Give summary @ -No Was smoking cessation discussed for >3mins.? @ -No Was critical care preformed (if so, how long)? @ -No Were there social determinants of health that impacted care today? How? (Homelessness, low income, unemployed, alcoholism, drug addiction, transportation, low edu. Level, literacy, decrease access to med. care, shelter, rehab)? @ -No Was there de-escalation of care discussed even if they declined (Discuss DNR or withdrawal of care, Hospice)? DNR status @ -No What co-morbidities impacted this encounter? (DM, HTN, Smoking, COPD, CAD, Cancer, CVA, ARF, Chemo, Hep., AIDS, mental health diagnosis, sleep apnea, morb id obesity)? @ -None Was patient admitted / discharged? Hospital course, mention meds given and rout e, prescriptions, significant lab abnormalities, going to OR and other pertinent info. @ -Discharge. Chest x-ray was unremarkable and lab work showed slight leukocytosis. Troponin, BNP, D-dimer were negative. Patient initially given Decadron. DuoNeb treatment given after negative COVID test. Solu-Medrol IV also given due to ongoing chest tightness and cough. Lung sounds greatly improved following treatments with resolution of wheezing and prolonged expiration. Dry cough persists. P.o. prednisone taper for 19 days sent to pharmacy. Advised follow-up with primary care on Friday. Undiagnosed new problem with uncertain prognosis? @ -No Drug Therapy requiring intensive monitoring for toxicity (Heparin, Nitro, Insulin, Cardizem)? @ -No Were any procedures done? @ -No Diagnosis/symptom? @ -Acute bronchitis Acute, or Chronic, or Acute on Chronic? @ -Acute Uncomplicated (without systemic symptoms) or Complicated (systemic symptoms)? @ -Uncomplicated Side effects of treatment? @ -No Exacerbation, Progression, or Severe Exacerbation? @ -No Poses a threat to life or bodily function? How? (Chest pain, [place], [place], pneumonia, PE, COPD, DKA, ARF, appy, cholecystitis, CVA, Diverticulitis, Homicidal, Suicidal, threat to staff... and all critical care pts) @ -No - Lab Data Result diagrams: 04/02/24 17:08 04/02/24 17:08 Lab Results 04/02/24 04/02/24 04/02/24 Range/Units 17:08 17:08 17:08 WBC 11.3 H (3.8-10.6) k/uL RBC 4.90 (3.80-5.40) m/uL Hgb 11.9 (11.4-16.0) gm/dL Hct 37.7 (34.0-46.0) % MCV 76.9 L (80.0-100.0) fL MCH 24.3 L (25.0-35.0) pg MCHC 31.6 (31.0-37.0) g/dL RDW 16.8 H (11.5-15.5) % Plt Count 167 (150-450) k/uL MPV 7.3 Neutrophils % 72 % Lymphocytes % 21 % Monocytes % 5 % Eosinophils % 1 % Basophils % 0 % Neutrophils # 8.2 H (1.3-7.7) k/uL Lymphocytes # 2.4 (1.0-4.8) k/uL Monocytes # 0.5 (0-1.0) k/uL Eosinophils # 0.1 (0-0.7) k/uL Basophils # 0.0 (0-0.2) k/uL Hypochromasia Moderate Anisocytosis Slight Microcytosis Slight D-Dimer 0.27 (<0.60) mg/L FEU Sodium (137-145) mmol/L Potassium (3.5-5.1) mmol/L Chloride (98-107) mmol/L Carbon Dioxide (22-30) mmol/L Anion Gap mmol/L BUN (7-17) mg/dL Creatinine (0.52-1.04) mg/dL Est GFR (CKD-EPI)AfAm (>60 ml/min/1.73 sqM) Est GFR (CKD-EPI)NonAf (>60 ml/min/1.73 sqM) Glucose (74-99) mg/dL Calcium (8.4-10.2) mg/dL Total Bilirubin (0.2-1.3) mg/dL AST (14-36) U/L ALT (4-34) U/L Alkaline Phosphatase (38-126) U/L Troponin I (0.000-0.034) ng/mL NT-Pro-B Natriuret Pep pg/mL Total Protein (6.3-8.2) g/dL Albumin (3.5-5.0) g/dL Influenza Type A (PCR) Not Detected (Not Detectd) Influenza Type B (PCR) Not Detected (Not Detectd) RSV (PCR) Not Detected (Not Detectd) SARS-CoV-2 (PCR) Not Detected (Not Detectd) 04/02/24 04/02/24 Range/Units 17:08 17:08 WBC (3.8-10.6) k/uL RBC (3.80-5.40) m/uL Hgb (11.4-16.0) gm/dL Hct (34.0-46.0) % MCV (80.0-100.0) fL MCH (25.0-35.0) pg MCHC (31.0-37.0) g/dL RDW (11.5-15.5) % Plt Count (150-450) k/uL MPV Neutrophils % % Lymphocytes % % Monocytes % % Eosinophils % % Basophils % % Neutrophils # (1.3-7.7) k/uL Lymphocytes # (1.0-4.8) k/uL Monocytes # (0-1.0) k/uL Eosinophils # (0-0.7) k/uL Basophils # (0-0.2) k/uL Hypochromasia Anisocytosis Microcytosis D-Dimer (<0.60) mg/L FEU Sodium 141 (137-145) mmol/L Potassium 3.8 (3.5-5.1) mmol/L Chloride 104 (98-107) mmol/L Carbon Dioxide 31 H (22-30) mmol/L Anion Gap 6 mmol/L BUN 16 (7-17) mg/dL Creatinine 0.88 (0.52-1.04) mg/dL Est GFR (CKD-EPI)AfAm 79 (>60 ml/min/1.73 sqM) Est GFR (CKD-EPI)NonAf 69 (>60 ml/min/1.73 sqM) Glucose 99 (74-99) mg/dL Calcium 9.1 (8.4-10.2) mg/dL Total Bilirubin 0.4 (0.2-1.3) mg/dL AST 18 (14-36) U/L ALT 18 (4-34) U/L Alkaline Phosphatase 95 (38-126) U/L Troponin I <0.012 (0.000-0.034) ng/mL NT-Pro-B Natriuret Pep 111 pg/mL Total Protein 7.1 (6.3-8.2) g/dL Albumin 4.4 (3.5-5.0) g/dL Influenza Type A (PCR) (Not Detectd) Influenza Type B (PCR) (Not Detectd) RSV (PCR) (Not Detectd) SARS-CoV-2 (PCR) (Not Detectd) Disposition Clinical Impression: Bronchitis Disposition: HOME SELF-CARE Condition: Good Instructions (If sedation given, give patient instructions): Acute Bronchitis (ED) Prescriptions: predniSONE [Deltasone] 60 mg PO DAILY #32 tab Is patient prescribed a controlled substance at d/c from ED?: No Referrals: Rossi Lee MD [Primary Care Provider] - 1-2 days Time of Disposition: 18:54
[2024-04-02] MEDS: DEXAMETHASONE SOD PHOSPHATE 10 MG/ML 1 ML VIAL IVP STA (17:11)
[2024-04-02 17:23] LABS: Anisocytosis Slight; Basophils % (A) 0 %; Eosinophils # (A) 0.1 k/uL (0-0.7); Eosinophils % (A) 1 %; HCT 37.7 % (34.0-46.0); HGB 11.9 gm/dL (11.4-16.0); Hypochromasia Moderate; Lymphocytes # (A) 2.4 k/uL (1.0-4.8); Lymphocytes % (A) 21 %; MCH 24.3 pg (25.0-35.0); MCHC 31.6 g/dL (31.0-37.0); MCV 76.9 fL (80.0-100.0); Mean Platelet Volume 7.3; Microcytosis Slight; Monocytes # (A) 0.5 k/uL (0-1.0); Monocytes % (A) 5 %; Neutrophils # (A) 8.2 k/uL (1.3-7.7); Neutrophils % (A) 72 %; Platelet Count 167 k/uL (150-450); RDW 16.8 % (11.5-15.5); WBC 11.3 k/uL (3.8-10.6)
[2024-04-02 17:36] LABS: ALT 18 U/L (4-34); AST 18 U/L (14-36); African American GFR (CKD) 79 (>60 ml/min/1.73 sqM); Albumin 4.4 g/dL (3.5-5.0); Alkaline Phosphatase 95 U/L (38-126); Anion Gap 6 mmol/L; Blood Urea Nitrogen 16 mg/dL (7-17); Calcium 9.1 mg/dL (8.4-10.2); Carbon Dioxide 31 mmol/L (22-30); Chloride 104 mmol/L (98-107); Glucose 99 mg/dL (74-99); Non-African American GFR(CKD) 69 (>60 ml/min/1.73 sqM); Potassium 3.8 mmol/L (3.5-5.1); Sodium 141 mmol/L (137-145); Total Bilirubin 0.4 mg/dL (0.2-1.3); Total Protein 7.1 g/dL (6.3-8.2)
[2024-04-02 17:45] LABS: NT-Pro-B-Type Natriuretic Pept 111 pg/mL
[2024-04-02] MEDS: IPRATROPIUM-ALBUTEROL 3 ML NEB INHALATION STA (18:22)
[2024-04-02] MEDS: methylPREDNISolone SOD SUCCI 125 MG/2 ML VIAL IV STA (19:41)
[2024-04-02 19:51] VITALS: BP 137/96; PULSE 85; RESP 18
== END 2024-04-02 19:51 | disposition home or self-care (01) ==
LOC: EC 15:07
DX: J20.9 Acute bronchitis, unspecified (principal); Z87.891 Personal history of nicotine dependence; Z88.2 Allergy status to sulfonamides; Z91.018 Allergy to other foods
CPT/HCPCS: 99284; 96374; 96375; 36415; 94640; 93005; 85379; 83880; 80053; 84484; 85025; 87636; 71046; J1100; J2919

== ENCOUNTER 2024-04-13 13:18 | Observation (INO) | payer MEDICARE ==
--- NOTE | 2024-04-13 13:42 | ED ---
Chest Pain HPI - General Chief Complaint: Chest Pain Stated Complaint: CHEST PAIN AND JAW PAIN Time Seen by Provider: 04/13/24 13:30 Source: patient, RN notes reviewed Mode of arrival: ambulatory Limitations: no limitations - History of Present Illness Initial Comments: This is a 68-year-old female with a history of hypertension and coronary artery disease presenting to the emergency department with for complaint of mid chest pain that is described as a stabbing sensation that will radiate into her back. States that this is a constant sensation and associated with intermittent shortness of breath. She states that pain radiates into her jaw. She denies associated diaphoresis or nausea and vomiting. She denies lower extremity edema. Denies previous history of AR or CVA. Denies blood thinner use. - Related Data Home Medications Medication Instructions Recorded Confirmed Cyclobenzaprine [Flexeril] 10 mg PO TID 07/04/15 04/18/21 Pramipexole [Mirapex] 0.5 mg PO HS 07/04/15 04/18/21 Sertraline HCl 100 mg PO DAILY 07/04/15 04/18/21 Acetaminophen-Codeine 300-30mg 1 tab PO TID 07/11/17 04/18/21 [Tylenol w/codeine #3] clonazePAM 0.5 mg PO TID 06/25/18 04/18/21 Albuterol Inhaler [Ventolin Hfa 2 puff INHALATION RT-Q4H PRN 10/07/19 04/18/21 Inhaler] Metoprolol Tartrate [Lopressor] 100 mg PO BID 10/07/19 04/18/21 Zolpidem Tartrate [Ambien] 5 mg PO HS 10/07/19 04/18/21 Atorvastatin [Lipitor] 40 mg PO HS 06/14/20 04/18/21 Previous Rx's Medication Instructions Recorded guaiFENesin-DM 100-10MG/5ML 10 ml PO Q6H PRN #120 ml 10/11/19 [Robitussin DM] Omeprazole [PriLOSEC] 20 mg PO AC-BID #60 cap 06/15/20 predniSONE [Deltasone] 60 mg PO DAILY #32 tab 04/02/24 Allergies Allergy/AdvReac Type Severity Reaction Status Date / Time pumpkin Allergy Anaphylaxis Verified 04/13/24 13:21 Sulfa (Sulfonamide Allergy Anaphylaxis Verified 04/13/24 13:21 Antibiotics) walnut Allergy Anaphylaxis Verified 04/13/24 13:21 Review of Systems ROS Statement: Those systems with pertinent positive or pertinent negative responses have been documented in the HPI. ROS Other: All systems not noted in ROS Statement are negative. Past Medical History Past Medical History: Coronary Artery Disease (CAD), Chest Pain / Angina, Eye Disorder, GERD/Reflux, Hyperlipidemia, Hypertension, Musculoskeletal Disorder Additional Past Medical History / Comment(s): Bronchitis, coughing "jags", hiatal hernia, hemorrhoids, chronic cervical and back pain, cervical disc degeneration, migraines, RLS, R eye cataract. History of Any Multi-Drug Resistant Organisms: None Reported Past Surgical History: Appendectomy, Section, Cholecystectomy, Heart Catheterization, Hysterectomy, Orthopedic Surgery Additional Past Surgical History / Comment(s): 2018 cardiac cath-treat medically, R knee arthroscopic surgery x2, bilateral heel spur removals, multiple laparoscopies, EGD, colonoscopies Past Anesthesia/Blood Transfusion Reactions: No Reported Reaction Additional Past Anesthesia/Blood Transfusion Reaction / Comment(s): no blood transfusion. mild claustrophobia Past Psychological History: Anxiety, Depression Smoking Status: Former smoker Past Alcohol Use History: None Reported Past Drug Use History: None Reported - Past Family History Mother Family Medical History: Cancer Additional Family Medical History / Comment(s): w/ sepsis after area removed from pancreas Father Family Medical History: Cancer Additional Family Medical History / Comment(s): stomach Brother(s) Family Medical History: Cancer Additional Family Medical History / Comment(s): colon- at age 52 Sister(s) Family Medical History: CVA/TIA Additional Family Medical History / Comment(s): cva- at age 55 General Exam Limitations: no limitations General appearance: alert, in no apparent distress Eye exam: Present: normal appearance, PERRL, EOMI. Absent: scleral icterus, conjunctival injection, periorbital swelling ENT exam: Present: normal exam, mucous membranes moist Neck exam: Present: normal inspection. Absent: tenderness, meningismus, lymphadenopathy Respiratory exam: Present: normal lung sounds bilaterally. Absent: respiratory distress, wheezes, rales, rhonchi, stridor Cardiovascular Exam: Present: regular rate, normal rhythm, normal heart sounds. Absent: systolic murmur, diastolic murmur, rubs, gallop, clicks GI/Abdominal exam: Present: soft, normal bowel sounds. Absent: distended, tenderness, guarding, rebound, rigid Extremities exam: Present: normal inspection, full ROM, normal capillary refill. Absent: tenderness, pedal edema, joint swelling, calf tenderness Back exam: Present: normal inspection Neurological exam: Present: alert, oriented X3, CN II-XII intact Course Vital Signs 04/13/24 04/13/24 04/13/24 13:19 13:21 15:20 Temperature 98.4 F Pulse Rate 85 78 67 Respiratory 20 18 16 Rate Blood Pressure 145/82 132/83 130/80 O2 Sat by Pulse 99 98 99 Oximetry Chest Pain MDM - MDM Was pt. sent in by a medical professional or institution (, PA, WOOD LAST [employer]ER, urgent care, hospital, or senior living...) When possible be specific @ -No Did you speak to anyone other than the patient for history (EMS, parent, family, police, friend...)? What history was obtained from this source @ -No Did you review nursing and triage notes (agree or disagree)? Why? @ -I reviewed and agree with nursing and triage notes Were old charts reviewed (outside hosp., previous admission, EMS record, old EKG, old radiological studies, urgent care reports/EKG's, senior living records)? Report findings @ -No old charts were reviewed Differential Diagnosis (chest pain, altered mental status, abdominal pain women, abdominal pain men, vaginal bleeding, weakness, fever, dyspnea, syncope, headache, dizziness, GI bleed, back pain, seizure, CVA, palpatations, mental health, musculoskeletal)? @ -Differential Chest Pain: Stable Angina, Unstable Angina, STEMI, NSTEMI Aortic Dissection, Pneumothorax, Musculoskeletal, Esophageal Spasm GERD, Cholecystitis, Pancreatitis, Zoster, th is is not meant to be an all-inclusive list. EKG interpreted by me (3pts min.). @ -Completed at 1329 sinus rhythm with a ventricular rate of 78, CO interval 154, QRS 89, QTc 392 X-rays interpreted by me (1pt min.). @ -Chest x-ray mild cardiomegaly with no definitive acute process CT interpreted by me (1pt min.). @ -None done U/S interpreted by me (1pt. min.). @ -None done What testing was considered but not performed or refused? (CT, X-rays, U/S, labs)? Why? @ -None What meds were considered but not given or refused? Why? @ -None Did you discuss the management of the patient with other professionals (professionals i.e. , PA, WOOD LAST [employer]KER, lab, RT, psych nurse, psychologist social, export coordinator, teacher, tax revenue officer, test case developer)? Give summary @ -i spoke with [facility] internal medicine physician, Dr. Reaves, in regard to the patient's workup. Patient is accepted for admission with cardiology on consult. Echocardiogram ordered. Was smoking cessation discussed for >3mins.? @ -No Was critical care preformed (if so, how long)? @ -No Were there social determinants of health that impacted care today? How? (Homelessness, low income, unemployed, alcoholism, drug addiction, transporta tion, low edu. Level, literacy, decrease access to med. care, half-way, rehab)? @ -No Was there de-escalation of care discussed even if they declined (Discuss DNR or withdrawal of care, Hospice)? DNR status @ -No What co-morbidities impacted this encounter? (DM, HTN, Smoking, COPD, CAD, Cancer, CVA, ARF, Chemo, Hep., AIDS, mental health diagnosis, sleep apnea, morbid obesity)? @ -None Was patient admitted / discharged? Hospital course, mention meds given and route, prescriptions, significant lab abnormalities, going to OR and other pertinent info. @ -Admitted. 68-year-old female with chest pain. Patient's vitals are stable. She is provided with oral dose of aspirin and will be evaluated via cardiac workup. EKG sinus rhythm. Patient's labs remarkable for elevated BUN at 30. Troponin not elevated. Troponin ordered. Patient is provided with morphine for pain control. Patient will be admitted to internal medicine with cardiology on consult for cardiac observation with concern for moderate adverse cardiac risk within the next 6 weeks due to an elevated HEART score. Echocardiogram ordered. Case discussed with Dr. Benton Undiagnosed new problem with uncertain prognosis? @ -No Drug Therapy requiring intensive monitoring for toxicity (Heparin, Nitro, Insulin, Cardizem)? @ -No Were any procedures done? @ -No Diagnosis/symptom? @ -chest pain, rule out ACS Acute, or Chronic, or Acute on Chronic? @ -acute Uncomplicated (without systemic symptoms) or Complicated (systemic symptoms)? @ -uncomplicated Side effects of treatment? @ -No Exacerbation, Progression, or Severe Exacerbation? @ -No Poses a threat to life or bodily function? How? (Chest pain, [place], AR, pneumonia, PE, COPD, DKA, ARF, appy, cholecystitis, CVA, Diverticulitis, Homicidal, Suicidal, threat to staff... and all critical care pts) @ -No Disposition Clinical Impression: Chest pain Disposition: ADMITTED IP TO THIS HOSP Condition: Serious Referrals: Rossi Lee MD [Primary Care Provider] - 1-2 days Decision to Admit Reason: Admit from EC Decision Date: 04/13/24 Decision Time: 15:42
[2024-04-13] MEDS: ASPIRIN 81 MG PO STA (14:00)
--- NOTE | 2024-04-13 14:08 | XR ---
EXAMINATION TYPE: XR chest 2V DATE OF EXAM: 04/13/2024 1:52 PM COMPARISON: 04/02/2024 CLINICAL INDICATION: Female, 68 years old with history of Chest Pain, , TECHNIQUE: PA and lateral views FINDINGS: Heart mildly enlarged. Hazy lower lung densities likely relating to a combination of overlying soft t issue and probably some underlying atelectasis. No consolidation or pleural effusion otherwise seen. Cholecystectomy clips. IMPRESSION: Mild cardiomegaly. No definite acute process. [facility], , 04/13/2024 2:06 PM
[2024-04-13 14:41] LABS: Anisocytosis Slight; Basophils % (A) 0 %; Eosinophils # (A) 0.2 k/uL (0-0.7); Eosinophils % (A) 2 %; HCT 33.5 % (34.0-46.0); HGB 10.8 gm/dL (11.4-16.0); Hypochromasia Slight; Lymphocytes # (A) 2.1 k/uL (1.0-4.8); Lymphocytes % (A) 25 %; MCHC 32.3 g/dL (31.0-37.0); MCV 77.5 fL (80.0-100.0); Microcytosis Slight; Monocytes # (A) 0.4 k/uL (0-1.0); Monocytes % (A) 5 %; Neutrophils # (A) 5.8 k/uL (1.3-7.7); Neutrophils % (A) 67 %; Platelet Count 170 k/uL (150-450); RBC 4.33 m/uL (3.80-5.40); RDW 17.1 % (11.5-15.5); WBC 8.6 k/uL (3.8-10.6)
[2024-04-13 14:56] LABS: ALT 29 U/L (4-34); AST 22 U/L (14-36); African American GFR (CKD) 77 (>60 ml/min/1.73 sqM); Albumin 3.8 g/dL (3.5-5.0); Alkaline Phosphatase 71 U/L (38-126); Anion Gap 6 mmol/L; Blood Urea Nitrogen 30 mg/dL (7-17); Calcium 8.9 mg/dL (8.4-10.2); Carbon Dioxide 28 mmol/L (22-30); Chloride 104 mmol/L (98-107); Glucose 105 mg/dL (74-99); Lipase 77 U/L (23-300); Magnesium 2.2 mg/dL (1.6-2.3); Non-African American GFR(CKD) 67 (>60 ml/min/1.73 sqM); Potassium 3.9 mmol/L (3.5-5.1); Sodium 138 mmol/L (137-145); Total Bilirubin 0.3 mg/dL (0.2-1.3)
[2024-04-13 15:05] LABS: NT-Pro-B-Type Natriuretic Pept 307 pg/mL
[2024-04-13] MEDS: MORPHINE SULFATE 4 MG/ML SYRINGE IVP STA (15:20)
[2024-04-13] MEDS ORDERED: ACETAMINOPHEN TAB 325 MG TAB PO PRN (15:30)
[2024-04-13] MEDS ORDERED: NALOXONE 0.4 MG/ML 1 ML VIAL IV PRN (15:30)
[2024-04-13] MEDS: MORPHINE SULFATE 4 MG/ML SYRINGE IV PRN (19:59)
[2024-04-13] MEDS ORDERED: clonazePAM 0.5 MG TAB PO PRN (21:54)
[2024-04-13] MEDS ORDERED: HYDROcodone/APAP 10-325MG 1 EACH TAB PO PRN (21:54)
[2024-04-13] MEDS: ZOLPIDEM 5 MG TAB PO SCH (22:12)
--- NOTE | 2024-04-14 00:37 | P.HPIM ---
History of Present Illness H&P Date: 04/13/24 Chief Complaint: Chest pain Patient is a 68-year-old female with a past medical history of coronary artery disease status post catheter placement 2018, GERD, hypertension, hyperlipidemia, chronic bronchitis and chronic cervical and back pain, migraine headaches, anxiety/depression and prior history of smoking. Patient presents to ER with complaints of chest pain mid retrosternal sharp pain radiating to left side of neck/this morning. Associated with chest heaviness and shortness of breath. It felt different than her regular neck pain. She has been having significant cough for the past 1 month due to her bronchitis. Denied any nausea or vomiting. Denied any sputum production. No leg swelling. No complaints of fever or chills. [place] like a hot flash and cold. Chest x-ray showed mild cardiomegaly. No definite acute process. EKG showed sinus rhythm. Laboratory data showed WBC 8.6 hemoglobin 10.8, MCV 77.5 and RDW 17.1 and platelets 170 sodium 138 potassium 3.9 chloride 104 bicarb is 28 BUN 13 creatinine 0.9 and blood sugar 105 liver enzymes are not elevated proBNP 307 Review of Systems Constitutional: Patient denies any fever or chills . No generalized weakness or weight loss. Abdomen: Patient denied nausea vomiting and diarrhea and abdominal pain. Cardiovascular: Patient complains of chest heaviness and shortness of breath no leg swelling.. Respiratory: Cough without sputum production. Positive for shortness of breath Neurologic: Patient denied any numbness or tingling. no headache. Musculoskeletal: Patient denies any complaints of joint swelling or deformity. Skin: Negative Psychiatric: Negative Endocrine: No heat or cold intolerance. No recent weight gain. Genitourinary: No dysuria or hematuria. All other 14 point ROS negative except the above Past Medical History Past Medical History: Coronary Artery Disease (CAD), Chest Pain / Angina, Eye Disorder, GERD/Reflux, Hyperlipidemia, Hypertension, Musculoskeletal Disorder Additional Past Medical History / Comment(s): Bronchitis, coughing "jags", hiatal hernia, hemorrhoids, chronic cervical and back pain, cervical disc degeneration, migraines, RLS, R eye cataract. History of Any Multi-Drug Resistant Organisms: None Reported Past Surgical History: Appendectomy, Section, Cholecystectomy, Heart Catheterization, Hysterectomy, Orthopedic Surgery Additional Past Surgical History / Comment(s): 2018 cardiac cath-treat medically, R knee arthroscopic surgery x2, bilateral heel spur removals, multiple laparoscopies, EGD, colonoscopies Past Anesthesia/Blood Transfusion Reactions: No Reported Reaction Additional Past Anesthesia/Blood Transfusion Reaction / Comment(s): no blood transfusion. mild claustrophobia Past Psychological History: Anxiety, Depression Smoking Status: Former smoker Past Alcohol Use History: None Reported Past Drug Use History: None Reported - Past Family History Mother Family Medical History: Cancer Additional Family Medical History / Comment(s): w/ sepsis after area removed from pancreas Father Family Medical History: Cancer Additional Family Medical History / Comment(s): stomach Brother(s) Family Medical History: Cancer Additional Family Medical History / Comment(s): colon- at age 52 Sister(s) Family Medical History: CVA/TIA Additional Family Medical History / Comment(s): cva- at age 55 Medications and Allergies Home Medications Medication Instructions Recorded Confirmed Type Pramipexole [Mirapex] 0.5 mg PO HS 07/04/15 04/13/24 History Sertraline HCl 150 mg PO DAILY 07/04/15 04/13/24 History clonazePAM 0.5 mg PO TID PRN 06/25/18 04/13/24 History Albuterol Inhaler [Ventolin Hfa 2 puff INHALATION RT-Q4H PRN 10/07/19 04/13/24 History Inhaler] Metoprolol Tartrate [Lopressor] 100 mg PO BID 10/07/19 04/13/24 History Zolpidem Tartrate [Ambien] 5 mg PO HS 10/07/19 04/13/24 History Fluticasone Propion/Salmeterol 1 puff INHALATION RT-BID PRN 04/13/24 04/13/24 History [Advair 250-50 Diskus] HYDROcodone/APAP 10-325MG [[place] 1 tab PO Q8H PRN 04/13/24 04/13/24 History 10-325] Omeprazole 40 mg PO BID 04/13/24 04/13/24 History Rosuvastatin [Crestor] 10 mg PO DAILY 04/13/24 04/13/24 History predniSONE [Deltasone] 10 mg PO DAILY 04/13/24 04/13/24 History Allergies Allergy/AdvReac Type Severity Reaction Status Date / Time pumpkin Allergy Anaphylaxis Verified 04/13/24 16:00 Sulfa (Sulfonamide Allergy Anaphylaxis Verified 04/13/24 16:00 Antibiotics) walnut Allergy Anaphylaxis Verified 04/13/24 16:00 Physical Exam Vitals: Vital Signs Temp Pulse Resp BP Pulse Ox 04/13/24 17:19 73 18 144/74 97 04/13/24 15:20 67 16 130/80 99 04/13/24 13:21 78 18 132/83 98 04/13/24 13:19 98.4 F 85 20 145/82 99 Intake and Output 04/13/24 04/13/24 04/13/24 06:59 14:59 22:59 Other: Weight 86.183 kg PHYSICAL EXAMINATION: Patient is lying in the bed comfortably, no acute distress, awake alert and oriented.. HEENT: Normocephalic. Neck is supple. Pupils reactive. Nostrils clear. Oral cavity is moist. Neck reveals no JVD, carotid bruits, or thyromegaly. CHEST EXAMINATION: Trachea is central. Symmetrical expansion. Bibasilar diminished sounds and scattered coarse sounds. No wheezing. Nonlabored breathing. CARDIAC: Normal S1, S2 with no gallops. No murmurs ABDOMEN: Soft. Bowel sounds normal. No organomegaly. No abdominal bruits. Extremities: reveal no edema. No clubbing or cyanosis Neurologically awake, alert, oriented x3 with well-coordinated movements. No focal deficits noted Skin: No rash or skin lesions. Psychiatric: Coperative. Nonsuicidal Musculoskeletal: No joint swelling or deformity. Normal range of motion. Results CBC & Chem 7: 04/13/24 13:29 04/13/24 13:29 Labs: Abnormal Lab Results - Last 24 Hours (Table) 04/13/24 04/13/24 Range/Units 13:29 13:29 Hgb 10.8 L (11.4-16.0) gm/dL Hct 33.5 L (34.0-46.0) % MCV 77.5 L (80.0-100.0) fL RDW 17.1 H (11.5-15.5) % BUN 30 H (7-17) mg/dL Glucose 105 H (74-99) mg/dL Total Protein 6.0 L (6.3-8.2) g/dL Thrombosis Risk Factor Assmnt - DVT/VTE Prophylaxis DVT/VTE Prophylaxis: Pharmacologic Prophylaxis ordered Assessment and Plan Assessment: Atypical chest pain. Rule out ACS Recent bronchitis and has been cough for the past 1 month. Coronary artery disease with prior history of cardiac cath in 2018 medical management was recommended Hypertension Hyperlipidemia GERD Chronic cervical and back pain Anxiety/depression Prior history of smoking DVT prophylaxis with heparin subcu GI prophylaxis PPI Plan: Patient will be continued on telemonitoring. Serial EKG and troponin x 3. Ca rdiology was consulted for evaluation. Patient will be continued on albuterol inhalation and Symbicort and also continue with prednisone c 10 mg daily which she has been taking at home. Continue with aspirin and metoprolol and statins. Continue PPI and follow-up closely. Time with Patient: Greater than 30
[2024-04-14] MEDS: SYMBICORT 80-4.5 MCG INHALER INHALATION SCH (04:48)
[2024-04-14] MEDS: PANTOPRAZOLE 40 MG TABLET PO SCH (05:42)
[2024-04-14 08:33] LABS: HCT 32.3 % (37.2-46.3); MCH 24.2 pg (27.0-32.0); Mean Platelet Volume 8.9 FL (9.5-12.2); NRBC Per 100 WBC 0 X 10*3/uL (0.00-0.01); Platelet Count 139 X 10*3/uL (140-440); RBC 4.14 X 10*6/uL (4.10-5.20); RDW 17.6 % (11.5-14.5); WBC 7.95 X 10*3/uL (4.50-10.00)
[2024-04-14 08:34] LABS: Basophils # (A) 0.02 X 10*3/uL (0.00-0.10); Basophils % (A) 0.3 %; Eosinophils # (A) 0.14 X 10*3/uL (0.04-0.35); Eosinophils % (A) 1.8 %; Lymphocytes # (A) 2.35 X 10*3/uL (0.90-5.00); Lymphocytes % (A) 29.6 %; Monocytes # (A) 0.37 X 10*3/uL (0.20-1.00); Monocytes % (A) 4.7 %; Neutrophils # (A) 5.03 X 10*3/uL (1.80-7.70); Neutrophils % (A) 63.1 %
[2024-04-14] MEDS: METOPROLOL TARTRATE 50 MG TAB PO SCH (08:42)
[2024-04-14] MEDS: ATORVASTATIN 20 MG TAB PO SCH (08:43)
[2024-04-14] MEDS: SERTRALINE 50 MG TAB PO SCH (08:43)
[2024-04-14] MEDS: HEPARIN SODIUM,PORCINE 5,000 UNIT/ML 1 ML VIAL SQ SCH (08:43)
[2024-04-14] MEDS: predniSONE 10 MG TAB PO SCH (08:43)
[2024-04-14] MEDS ORDERED: FAMOTIDINE 20 MG TAB PO SCH (09:00)
[2024-04-14 09:17] LABS: ALT 26 U/L (8-44); AST 17 U/L (13-35); Albumin 3.7 g/dL (3.8-4.9); Albumin/Globulin Ratio 2.18 Ratio (1.60-3.17); Alkaline Phosphatase 68 U/L (41-126); BUN/Creat Ratio 31.25 Ratio (12.00-20.00); Calcium 8.6 mg/dL (8.7-10.3); Carbon Dioxide 26.8 mmol/L (21.6-31.8); Chloride 106 mmol/L (96-109); Globulin 1.7 g/dL (1.6-3.3); Glucose 103 mg/dL (70-110); Potassium 4.1 mmol/L (3.5-5.5); Sodium 141 mmol/L (135-145); Total Bilirubin <0.2 mg/dL (0.3-1.2); Total Protein 5.4 g/dL (6.2-8.2)
[2024-04-14] MEDS: ONDANSETRON 4 MG/2 ML VIAL IVP PRN (09:36)
--- NOTE | 2024-04-14 10:23 | P.CRDCN ---
History of Present Illness Consult date: 04/14/24 Requesting physician: Tucker Ivory Reason for Consult (text): chest pain Chief complaint: chest pain History of present illness: This is a pleasant 68-year-old female patient with a past medical history of hypertension and hyperlipidemia. She underwent cardiac catheterization in [address] Prakash found to have no significant disease other than minor irregularities and slightly elevated filling pressures. In 2020 she underwent dobutamine stress echo that showed no evidence of ischemia. Recently seen and treated by her primary care physician for bronchitis. [facility] complaints of chest discomfort. The pain was worsened with deep inspiration and coughing. EKG and cardiac enzymes were unremarkable. Patient denies any orthopnea, PND or edema. She has had no palpitations, dizziness or syncope. She currently has some difficulty breathing and wheezing related to the bronchitis. Past Medical History Past Medical History: Coronary Artery Disease (CAD), Chest Pain / Angina, Eye Disorder, GERD/Reflux, Hyperlipidemia, Hypertension, Musculoskeletal Disorder Additional Past Medical History / Comment(s): Bronchitis, coughing "jags", hiatal hernia, hemorrhoids, chronic cervical and back pain, cervical disc degeneration, migraines, RLS, R eye cataract. History of Any Multi-Drug Resistant Organisms: None Reported Past Surgical History: Appendectomy, Section, Cholecystectomy, Heart Catheterization, Hysterectomy, Orthopedic Surgery Additional Past Surgical History / Comment(s): 2018 cardiac cath-treat medically, R knee arthroscopic surgery x2, bilateral heel spur removals, multiple laparoscopies, EGD, colonoscopies Past Anesthesia/Blood Transfusion Reactions: No Reported Reaction Additional Past Anesthesia/Blood Transfusion Reaction / Comment(s): no blood transfusion. mild claustrophobia Past Psychological History: Anxiety, Depression Smoking Status: Former smoker Past Alcohol Use History: None Reported Past Drug Use History: None Reported - Past Family History Mother Family Medical History: Cancer Additional Family Medical History / Comment(s): w/ sepsis after area removed from pancreas Father Family Medical History: Cancer Additional Family Medical History / Comment(s): stomach Brother(s) Family Medical History: Cancer Additional Family Medical History / Comment(s): colon- at age 52 Sister(s) Family Medical History: CVA/TIA Additional Family Medical History / Comment(s): cva- at age 55 Medications and Allergies Home Medications Medication Instructions Recorded Confirmed Type Pramipexole [Mirapex] 0.5 mg PO HS 07/04/15 04/13/24 History Sertraline HCl 150 mg PO DAILY 07/04/15 04/13/24 History clonazePAM 0.5 mg PO TID PRN 06/25/18 04/13/24 History Albuterol Inhaler [Ventolin Hfa 2 puff INHALATION RT-Q4H PRN 10/07/19 04/13/24 History Inhaler] Metoprolol Tartrate [Lopressor] 100 mg PO BID 10/07/19 04/13/24 History Zolpidem Tartrate [Ambien] 5 mg PO HS 10/07/19 04/13/24 History Fluticasone Propion/Salmeterol 1 puff INHALATION RT-BID PRN 04/13/24 04/13/24 History [Advair 250-50 Diskus] HYDROcodone/APAP 10-325MG [[place] 1 tab PO Q8H PRN 04/13/24 04/13/24 History 10-325] Omeprazole 40 mg PO BID 04/13/24 04/13/24 History Rosuvastatin [Crestor] 10 mg PO DAILY 04/13/24 04/13/24 History predniSONE [Deltasone] 10 mg PO DAILY 04/13/24 04/13/24 History Allergies Allergy/AdvReac Type Severity Reaction Status Date / Time pumpkin Allergy Anaphylaxis Verified 04/13/24 16:00 Sulfa (Sulfonamide Allergy Anaphylaxis Verified 04/13/24 16:00 Antibiotics) walnut Allergy Anaphylaxis Verified 04/13/24 16:00 Physical Exam Vitals: Vital Signs Temp Pulse Pulse Pulse Resp BP BP 04/14/24 07:00 97.7 F 75 16 04/14/24 02:00 97.7 F 82 17 124/77 04/13/24 20:30 75 13 107/62 04/13/24 20:00 97.6 F 74 17 119/76 04/13/24 19:45 80 15 116/68 04/13/24 17:19 73 18 144/74 04/13/24 15:20 67 16 130/80 04/13/24 13:21 78 18 132/83 04/13/24 13:19 98.4 F 85 20 145/82 BP Pulse Ox 04/14/24 07:00 136/81 98 04/14/24 02:00 95 04/13/24 20:30 96 04/13/24 20:00 97 04/13/24 19:45 95 04/13/24 17:19 97 04/13/24 15:20 99 04/13/24 13:21 98 04/13/24 13:19 99 Intake and Output 04/13/24 04/14/24 04/14/24 22:59 06:59 14:59 Other: # Voids 1 2 Weight 86.183 kg PHYSICAL EXAMINATION: This is a 68-year-old female in no apparent distress at the time of my examination. VITAL SIGNS: Reviewed. HEENT: Head is atraumatic, normocephalic. Pupils are equal, round. Sclerae anicteric. Conjunctivae are clear. Mucous membranes of the mouth are moist. Neck is supple. There is no elevated jugular venous pressure. No carotid bruit is heard. CHEST EXAMINATION: Clear to auscultation bilaterally. No wheezes rales or rh onchi. Respirations even and nonlabored. HEART EXAMINATION: Heart regular, positive S1 and S2. No S3. No S4. No clicks, rubs or murmurs. ABDOMEN: Soft, nontender. Bowel sounds are heard. No organomegaly noted. EXTREMITIES: 2+ peripheral pulses with no evidence of peripheral edema and no calf tenderness noted. NEUROLOGIC EXAMINATION: Patient is awake, alert and oriented x3. Results 04/14/24 04:17 04/14/24 04:17 Cardiac Enzymes 04/13/24 04/13/24 04/13/24 Range/Units 13:29 13:29 16:30 AST 22 (14-36) U/L Troponin I <0.012 <0.012 (0.000-0.034) ng/mL 04/14/24 Range/Units 04:17 AST 17 (14-36) U/L Troponin I (0.000-0.034) ng/mL Coagulation 04/13/24 Range/Units 13:29 PT 11.0 (10.0-12.5) sec APTT 29.0 (22.0-30.0) sec CBC 04/13/24 04/14/24 Range/Units 13:29 04:17 WBC 8.6 7.95 (3.8-10.6) k/uL RBC 4.33 4.14 (3.80-5.40) m/uL Hgb 10.8 L 10.0 L (11.4-16.0) gm/dL Hct 33.5 L 32.3 L (34.0-46.0) % Plt Count 170 139 L (150-450) k/uL Comprehensive Metabolic Panel 04/13/24 04/14/24 Range/Units 13:29 04:17 Sodium 138 141 (137-145) mmol/L Potassium 3.9 4.1 (3.5-5.1) mmol/L Chloride 104 106 (98-107) mmol/L Carbon Dioxide 28 26.8 (22-30) mmol/L BUN 30 H 25.0 (7-17) mg/dL Creatinine 0.90 0.8 (0.52-1.04) mg/dL Glucose 105 H 103 (74-99) mg/dL Calcium 8.9 8.6 L (8.4-10.2) mg/dL AST 22 17 (14-36) U/L ALT 29 26 (4-34) U/L Alkaline Phosphatase 71 68 (38-126) U/L Total Protein 6.0 L 5.4 L (6.3-8.2) g/dL Albumin 3.8 3.7 L (3.5-5.0) g/dL Current Medications Generic Name Dose Route Start Last Admin Trade Name Freq PRN Reason Stop Dose Admin Acetaminophen 650 mg 04/13/24 15:30 Acetaminophen Tab 325 Mg Tab PO Q6HR PRN Mild Pain or Fever > 100.5 Hydrocodone Bitart/Acetaminophen 1 each 04/13/24 21:54 Hydrocodone/Apap 10-325mg 1 Each Tab PO Q8H PRN Pain Albuterol Sulfate 2.5 mg 04/13/24 21:54 Albuterol Nebulized 2.5 Mg/3 Ml INHALATION RT-Q4H PRN Shortness Of Breath Atorvastatin Calcium 20 mg 04/14/24 09:00 04/14/24 08:43 Atorvastatin 20 Mg Tab PO 20 mg DAILY JOI Administration Budesonide/Formoterol Fumarate 2 puff 04/13/24 21:54 04/14/24 08:17 Symbicort 80-4.5 Mcg Inhaler INHALATION Not Given RT-BID JOI Clonazepam 0.5 mg 04/13/24 21:54 Clonazepam 0.5 Mg Tab PO TID PRN Anxiety Heparin Sodium (Porcine) 5,000 unit 04/14/24 08:00 04/14/24 08:43 Heparin Sodium,Porcine 5,000 Unit/Ml 1 Ml Vial SQ 5,000 unit Q8HR JOI Administration Metoprolol Tartrate 100 mg 04/14/24 09:00 04/14/24 08:42 Metoprolol Tartrate 50 Mg Tab PO 100 mg BID JOI Administration Morphine Sulfate 4 mg 04/13/24 15:30 04/14/24 09:36 Morphine Sulfate 4 Mg/Ml Syringe IV 4 mg Q4HR PRN Administration Severe Pain (Scale 7 to 10) Naloxone HCl 0.2 mg 04/13/24 15:30 Naloxone 0.4 Mg/Ml 1 Ml Vial IV Q2M PRN Opioid Reversal Ondansetron HCl 4 mg 04/13/24 15:30 04/14/24 09:36 Ondansetron 4 Mg/2 Ml Vial IVP 4 mg Q8HR PRN Administration Nausea And Vomiting Pantoprazole Sodium 40 mg 04/14/24 07:30 04/14/24 05:42 Pantoprazole 40 Mg Tablet PO 40 mg AC-BID JOI Administration Pramipexole Dihydrochloride 0.5 mg 04/14/24 21:00 Pramipexole 0.5 Mg Tab PO HS JOI Prednisone 10 mg 04/14/24 09:00 04/14/24 08:43 Prednisone 10 Mg Tab PO 10 mg DAILY JOI Administration Sertraline HCl 150 mg 04/14/24 09:00 04/14/24 08:43 Sertraline 50 Mg Tab PO 150 mg DAILY JOI Administration Zolpidem Tartrate 5 mg 04/13/24 22:00 04/13/24 22:12 Zolpidem 5 Mg Tab PO 5 mg HS JOI Administration Intake and Output 04/13/24 04/14/24 04/14/24 22:59 06:59 14:59 Other: # Voids 1 2 Weight 86.183 kg 04/14/24 04:17 04/14/24 04:17 Assessment and Plan Assessment: #1 chest pain, atypical for angina, acute coronary event has been ruled out, cardiac enzymes and EKG were unremarkable #2 history of mild CAD by cardiac catheterization in 2018 #3 hypertension #4 hyperlipidemia #5 bronchitis Plan: From cardiology's perspective acute coronary event has been ruled out. We will obtain a 2D echo with Doppler study. If there are no significant abnormalities on the echocardiogram patient may be discharged home. She will follow-up in the office in a couple of weeks and depending on her pulmonary status and symptoms further recommendations will be made regarding need for further ischemic workup. 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 Patient was seen and examined.
[2024-04-14 10:44] LABS: % Iron Saturation 5.77 (12.00-45.00); Iron 22 UG/DL (50-170); Total Iron Binding Capacity 381 UG/DL (228-460)
--- NOTE | 2024-04-14 12:55 | CA ---
Transthoracic Echo Report Name: Sharlene Rock Age: 68 Gender: F : 1955 Exam Date: 04/14/2024 09:29 Exam Location: [facility] Ht (in): 66 Wt (lb): 190 Ordering Physician: Rhonda Bentley Attending/Referring Phys: Button Grader Naida Presley RDCS Procedure CPT: Indications: Chest Pain Cardiac Hx: Technical Quality: Good Contrast 1: Total Dose (mL): Contrast 2: Total Dose (mL): MEASUREMENTS (Male / Female) Normal Values 2D ECHO LV Diastolic Diameter PLAX 4.4 cm 4.2 - 5.9 / 3.9 - 5.3 cm LV Systolic Diameter PLAX 3.2 cm IVS Diastolic Thickness 0.9 cm 0.6 - 1.0 / 0.6 - 0.9 cm LVPW Diastolic Thickness 1.1 cm 0.6 - 1.0 / 0.6 - 0.9 cm LV Relative Wall Thickness 0.5 RV Internal Dim ED PLAX 3.3 cm LA Systolic Diameter LX 3.0 cm 3.0 - 4.0 / 2.7 - 3.8 cm LV Diastolic Volume MOD BP 66.1 cm??? 67 - 155 / 56 - 104 cm??? LV Systolic Volume MOD BP 31.5 cm??? 22 - 58 / 19 - 49 cm??? LV Ejection Fraction MOD BP 52.3 % >= 55 % LV Cardiac Index MOD BP 1225.7 cm???/min???m??? LV Diastolic Volume MOD 4C 84.4 cm??? LV Systolic Volume MOD 4C 46.0 cm??? LV Ejection Fraction MOD 4C 45.5 % LV Cardiac Index MOD 4C 1362.4 cm???/min???m??? LV Diastolic Length 4C 6.7 cm LV Systolic Length 4C 5.3 cm LV Diastolic Volume MOD 2C 47.3 cm??? LV Systolic Volume MOD 2C 18.9 cm??? LV Ejection Fraction MOD 2C 60.1 % LV Cardiac Index MOD 2C 1007.9 cm???/min???m??? LV Diastolic Length 2C 6.0 cm LV Systolic Length 2C 4.5 cm LA Volume 55.8 cm??? 18 - 58 / 22 - 52 cm??? LA Volume Index 27.5 cm???/m??? 16 - 28 cm???/m??? M-MODE Aortic Root Diameter MM 3.2 cm AV Cusp Separation MM 2.2 cm DOPPLER AV Peak Velocity 120.5 cm/s AV Peak Gradient 5.8 mmHg MV Area PHT 3.9 cm??? Mitral E Point Velocity 90.1 cm/s Mitral A Point Velocity 98.5 cm/s Mitral E to A Ratio 0.9 MV Deceleration Time 192.7 ms TR Peak Velocity 250.7 cm/s TR Peak Gradient 25.1 mmHg Right Ventricular Systolic Press 28.5 mmHg FINDINGS Left Ventricle Left ventricular ejection fraction is estimated at 55-60 %. Left ventricular cavity size normal. Left ventricular wall thickness normal. No obvious regional wall motion abnormalities. Right Ventricle Mild right ventricular dilatation. Right ventricular systolic pressure within normal limits. Right Atrium Normal right atrial size. No right atrial thrombus or mass seen. Left Atrium Normal left atrial size. No left atrial thrombus or mass present. Mitral Valve Structurally normal mitral valve. Mild mitral regurgitation. Aortic Valve Trileaflet aortic valve. No aortic valve stenosis or regurgitation.aortic valve sclerosis. Tricuspid Valve Structurally normal tricuspid valve. Mild tricuspid regurgitation. Pulmonic Valve Structurally normal pulmonic valve. No pulmonic regurgitation. Pericardium No pericardial or pleural effusion. Aorta Normal size aortic root and proximal ascending aorta. CONCLUSIONS 1. Normal left ventricular size and systolic function 2. Mild mitral and tricuspid regurgitation with no evidence of pulmonary hypertension Previewed by: Dr. Cindy Gibson MD (Electronically Signed) Final Date: 14 April 2024 12:54
[2024-04-14] MEDS: MAG HYDROX/AL HYDROX/SIMETH 30 ML CUP PO SCH (17:56)
--- NOTE | 2024-04-14 18:01 | P.GSCN ---
History of Present Illness Consult date: 04/14/24 History of present illness: CHIEF COMPLAINT: Abdominal pain with atypical chest pain HISTORY OF PRESENT ILLNESS: The patient is a 68-year-old female who presented to the hospital with atypical chest pain with radiation along her jaw and left arm. Patient does report having pre-existing history of a hiatal hernia. She had no recent upper endoscopies. At this time, full cardiac workup assessment has been performed has been unremarkable. General surgery is consulted due to epigastric abdominal pain. Incidentally, she reports chronic exposure to steroids within the past several weeks exacerbating her symptoms. She reports severe gastroesophageal reflux disease along the epigastric and chest. She is taking antiacids. PAST MEDICAL HISTORY: See list and reviewed PAST SURGICAL HISTORY: See list and reviewed MEDICATIONS: See list and reviewed ALLERGIES: See list and reviewed SOCIAL HISTORY: See list and reviewed FAMILY HISTORY: See list and reviewed REVIEW OF ORGAN SYSTEMS: CONSTITUTIONAL: No fevers or chills. No recent weight loss. Obesity to excess calories, BMI 30.7. EYES: Denies any trouble with vision. No glasses. HEENT: History of cataracts. RESPIRATORY: Has chronic obstructive pulmonary disease due to asthma. CARDIOVASCULAR: History of atypical chest pain, has coronary artery disease, hypertensive heart disease. Has hyperlipidemia. Prior cardiac catheterizations. GASTROINTESTINAL: Has gastroesophageal reflux disease including hiatal hernia. He has a prior cholecystectomy. GENITOURINARY: Denies any blood in urine or increased urinary frequency. NEUROLOGICAL: Has chronic pain syndrome. Reports chronic migraines. MUSCULOSKELETAL: Has back pain, stiffness or joint arthritis. SKIN: No current skin cancer. No rash. PSYCHIATRIC: Has depressive disorder. Has generalized anxiety disorder. ENDOCRINE: On prolonged steroid use. HEME/LYMPHATIC: Denies any lumps and bumps around the neck. No recent deep venous thrombosis. ALLERGY/IMMUNOLOGY: No immunoglobulin therapy. No immune deficiencies. BREAST: Denies current breast lumps, pain or nipple discharge. PHYSICAL EXAM: VITALS: Reviewed CONSTITUTIONAL: Well developed and in no acute distress. EYES: Conjuctivae without sclera icterus. Extraocular movements grossly intact. HEAD, EARS, NOSE, THROAT: Moist buccal mucosa. Head is atraumatic, normocephalic. Hears conversational speech. No nasal drainage. NECK: Supple. No JV distention. No thyroidomegaly. RESPIRATORY: Non-labored respirations and equal bilateral excursions. No gross wheezes. CARDIOVASCULAR: Palpable 2+ radial pulses. ABDOMEN: Obese. No peritonitis. LYMPH: No neck lymphadenopathy. MUSCULOSKELETAL: No clubbing cyanosis or edema SKIN: Warm and well perfused with good skin turgor. NEUROLOGIC: Cranial nerves II through XII grossly intact. No focal or lateralizing signs. PSYCH: Appropriate affect. Alert and oriented to person, place and time. Displays appropriate insight. CLINCAL LABS: Reviewed. WBC normal. Hemoglobin less than 11.0, anemia. Iron low. Troponins negative. IMAGING: Independently reviewed. Chest x-ray independently reviewed demonstrates no pneumothorax. No consolidation. This is my independent interpretation. EKG: Demonstrates borderline EKG. RECORDS: previous old records reviewed. Colonoscopy 2020 demonstrates no polyps. Family history of colon cancer in brother. EGD 2020 demonstrates hiatal hernia. ASSESSMENT: 1. Epigastric abdominal pain 2. Steroid-induced gastritis 3. Gastroesophageal reflux disease 4. Diaphragmatic hiatal hernia 5. Obesity due to excess calories, BMI 30 point 6. Chronic obstructive pulmonary disease PLAN: 1. Patient reports hiatal herina without recent upper endoscopy. Due to her severe GERD, recommend protonix and carafate. 2. Upper endoscopy advised and may be done as outpatient. ADVANCE DIRECTIVE: CODE STATUS in chart Thank you for this kind consultation. Past Medical History Past Medical History: Coronary Artery Disease (CAD), Chest Pain / Angina, Eye Disorder, GERD/Reflux, Hyperlipidemia, Hypertension, Musculoskeletal Disorder Additional Past Medical History / Comment(s): Bronchitis, coughing "jags", hiatal hernia, hemorrhoids, chronic cervical and back pain, cervical disc degeneration, migraines, RLS, R eye cataract. History of Any Multi-Drug Resistant Organisms: None Reported Past Surgical History: Appendectomy, Section, Cholecystectomy, Heart Catheterization, Hysterectomy, Orthopedic Surgery Additional Past Surgical History / Comment(s): 2018 cardiac cath-treat medically, R knee arthroscopic surgery x2, bilateral heel spur removals, multiple laparoscopies, EGD, colonoscopies Past Anesthesia/Blood Transfusion Reactions: No Reported Reaction Additional Past Anesthesia/Blood Transfusion Reaction / Comm: no blood transfusion. mild claustrophobia Past Psychological History: Anxiety, Depression Smoking Status: Former smoker Past Alcohol Use History: None Reported Past Drug Use History: None Reported - Past Family History Mother Family Medical History: Cancer Additional Family Medical History / Comment(s): w/ sepsis after area removed from pancreas Father Family Medical History: Cancer Additional Family Medical History / Comment(s): stomach Brother(s) Family Medical History: Cancer Additional Family Medical History / Comment(s): colon- at age 52 Sister(s) Family Medical History: CVA/TIA Additional Family Medical History / Comment(s): cva- at age 55 Medications and Allergies Home Medications Medication Instructions Recorded Confirmed Type Pramipexole [Mirapex] 0.5 mg PO HS 07/04/15 04/13/24 History Sertraline HCl 150 mg PO DAILY 07/04/15 04/13/24 History clonazePAM 0.5 mg PO TID PRN 06/25/18 04/13/24 History Albuterol Inhaler [Ventolin Hfa 2 puff INHALATION RT-Q4H PRN 10/07/19 04/13/24 History Inhaler] Metoprolol Tartrate [Lopressor] 100 mg PO BID 10/07/19 04/13/24 History Zolpidem Tartrate [Ambien] 5 mg PO HS 10/07/19 04/13/24 History Fluticasone Propion/Salmeterol 1 puff INHALATION RT-BID PRN 04/13/24 04/13/24 History [Advair 250-50 Diskus] HYDROcodone/APAP 10-325MG [[place] 1 tab PO Q8H PRN 04/13/24 04/13/24 History 10-325] Omeprazole 40 mg PO BID 04/13/24 04/13/24 History Rosuvastatin [Crestor] 10 mg PO DAILY 04/13/24 04/13/24 History Allergies Allergy/AdvReac Type Severity Reaction Status Date / Time pumpkin Allergy Anaphylaxis Verified 04/13/24 16:00 Sulfa (Sulfonamide Allergy Anaphylaxis Verified 04/13/24 16:00 Antibiotics) walnut Allergy Anaphylaxis Verified 04/13/24 16:00 heparin AdvReac Nausea & Verified 04/15/24 08:27 Vomiting Surgical - Exam Vital Signs Temp Pulse Resp BP Pulse Ox 98.4 F 85 20 145/82 99 04/13/24 13:19 04/13/24 13:19 04/13/24 13:19 04/13/24 13:19 04/13/24 13:19 Results - Labs 04/14/24 04:17 04/14/24 04:17 Abnormal Lab Results - Last 24 Hours (Table) 04/14/24 04/14/24 Range/Units 04:17 04:17 Hgb 10.0 L (12.0-15.0) g/dL Hct 32.3 L (37.2-46.3) % MCV 78.0 L (80.0-97.0) FL MCH 24.2 L (27.0-32.0) pg MCHC 31.0 L (32.0-37.0) g/dL RDW 17.6 H (11.5-14.5) % Plt Count 139 L (140-440) X 10*3/uL MPV 8.9 L (9.5-12.2) FL BUN/Creatinine Ratio 31.25 H (12.00-20.00) Ratio Calcium 8.6 L (8.7-10.3) mg/dL Iron 22 L (50-170) UG/DL % Saturation 5.77 L (12.00-45.00) Total Bilirubin <0.2 L (0.3-1.2) mg/dL Total Protein 5.4 L (6.2-8.2) g/dL Albumin 3.7 L (3.8-4.9) g/dL Diabetes panel 04/14/24 Range/Units 04:17 Sodium 141 (135-145) mmol/L Potassium 4.1 (3.5-5.5) mmol/L Chloride 106 (96-109) mmol/L Carbon Dioxide 26.8 (21.6-31.8) mmol/L BUN 25.0 (9.0-27.0) mg/dL Creatinine 0.8 (0.6-1.5) mg/dL Glucose 103 (70-110) mg/dL Calcium 8.6 L (8.7-10.3) mg/dL AST 17 (13-35) U/L ALT 26 (8-44) U/L Alkaline Phosphatase 68 (41-126) U/L Total Protein 5.4 L (6.2-8.2) g/dL Albumin 3.7 L (3.8-4.9) g/dL Calcium panel 04/14/24 Range/Units 04:17 Calcium 8.6 L (8.7-10.3) mg/dL Albumin 3.7 L (3.8-4.9) g/dL Pituitary panel 04/14/24 Range/Units 04:17 Sodium 141 (135-145) mmol/L Potassium 4.1 (3.5-5.5) mmol/L Chloride 106 (96-109) mmol/L Carbon Dioxide 26.8 (21.6-31.8) mmol/L BUN 25.0 (9.0-27.0) mg/dL Creatinine 0.8 (0.6-1.5) mg/dL Glucose 103 (70-110) mg/dL Calcium 8.6 L (8.7-10.3) mg/dL Adrenal panel 04/14/24 Range/Units 04:17 Sodium 141 (135-145) mmol/L Potassium 4.1 (3.5-5.5) mmol/L Chloride 106 (96-109) mmol/L Carbon Dioxide 26.8 (21.6-31.8) mmol/L BUN 25.0 (9.0-27.0) mg/dL Creatinine 0.8 (0.6-1.5) mg/dL Glucose 103 (70-110) mg/dL Calcium 8.6 L (8.7-10.3) mg/dL Total Bilirubin <0.2 L (0.3-1.2) mg/dL AST 17 (13-35) U/L ALT 26 (8-44) U/L Alkaline Phosphatase 68 (41-126) U/L Total Protein 5.4 L (6.2-8.2) g/dL Albumin 3.7 L (3.8-4.9) g/dL
[2024-04-14] MEDS: PRAMIPEXOLE 0.5 MG TAB PO SCH (20:21)
[2024-04-15] MEDS: ALBUTEROL NEBULIZED 2.5 MG/3 ML INHALATION PRN (08:27)
[2024-04-15] MEDS: SODIUM FERRIC GLUCONAT-SUCROSE 125 MG in SODIUM CHLORIDE 0.9% 100 ML IVPB ONE (12:53)
[2024-04-15] MEDS: bisacodyL 5 MG TABLET.DR PO STA (12:53)
--- NOTE | 2024-04-15 13:47 | P.PN ---
Subjective Progress Note Date: 04/15/24 This is a pleasant 68-year-old female patient with a past medical history of hypertension and hyperlipidemia. She underwent cardiac catheterization in [address] Prakash found to have no significant disease other than minor irregularities and slightly elevated filling pressures. In 2020 she underwent dobutamine stress echo that showed no evidence of ischemia. Recently seen and treated by her primary care physician for bronchitis. He presented to the hospital with complaints of chest discomfort. The pain was worsened with deep inspiration and coughing. EKG and cardiac enzymes were unremarkable. Patient denies any orthopnea, PND or edema. She has had no palpitations, dizziness or syncope. She currently has some difficulty breathing and wheezing related to the bronchitis. 04/15/2024 Patient was seen and examined resting comfortably in bed. She was evaluated by Dr. Burgos who recommended outpatient endoscopy. This morning she is complaining of reflux and heartburn which she is experienced in the past. She has had no further chest discomfort similar to what brought her in. [place] rdiogram with Doppler study showed normal LV systolic function with mild MR and mild TR. PHYSICAL EXAMINATION: This is a 68-year-old female in no apparent distress at the time of my examination. VITAL SIGNS: Reviewed. HEENT: Head is atraumatic, normocephalic. Pupils are equal, round. Sclerae anic teric. Conjunctivae are clear. Mucous membranes of the mouth are moist. Neck is supple. There is no elevated jugular venous pressure. No carotid bruit is heard. CHEST EXAMINATION: Clear to auscultation bilaterally. No wheezes rales or rhonchi. Respirations even and nonlabored. HEART EXAMINATION: Heart regular, positive S1 and S2. No S3. No S4. No clicks, rubs or murmurs. ABDOMEN: Soft, nontender. Bowel sounds are heard. No organomegaly noted. EXTREMITIES: 2+ peripheral pulses with no evidence of peripheral edema and no calf tenderness noted. NEUROLOGIC EXAMINATION: Patient is awake, alert and oriented x3. Assessment: #1 chest pain, atypical for angina, acute coronary event has been ruled out, cardiac enzymes and EKG were unremarkable #2 history of mild CAD by cardiac catheterization in 2018 #3 hypertension #4 hyperlipidemia #5 bronchitis #6 GERD Plan: From cardiology's perspective acute coronary event has been ruled out. We will follow the patient on an as-needed basis at this time. She will follow-up in the office in a couple of weeks and depending on her pulmonary status and symptoms further recommendations will be made regarding need for further ischemic workup. 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 Patient was seen and examined. Objective - Vital Signs Vital signs: Vital Signs Temp 98.4 F 04/15/24 07:00 Pulse 80 04/15/24 08:42 Resp 15 04/15/24 07:00 BP 138/85 04/15/24 07:00 Pulse Ox 97 04/15/24 07:00 FiO2 Intake & Output 04/14/24 04/15/24 04/15/24 18:59 06:59 18:59 Intake Total 358 Balance 358 Intake: Oral 358 Other: Voiding Method Toilet Toilet # Voids 1 1 - Labs CBC & Chem 7: 04/14/24 04:17 04/14/24 04:17
[2024-04-15 13:58] VITALS: BP 123/74; PULSE 72; RESP 17; TEMP 98.3
--- NOTE | 2024-04-19 00:02 | P.PN ---
Subjective Progress Note Date: 04/14/24 Patient is a 68-year-old female with a past medical history of coronary artery disease status post catheter placement 2018, GERD, hypertension, hyperlipidemia, chronic bronchitis and chronic cervical and back pain, migraine headaches, anxiety/depression and prior history of smoking. Patient presents to ER with complaints of chest pain mid retrosternal sharp pain radiating to left side of neck/this morning. Associated with chest heaviness and shortness of breath. It felt different than her regular neck pain. She has been having significant cough for the past 1 month due to her bronchitis. Denied any nausea or vomiting. Denied any sputum production. No leg swelling. No complaints of fever or chills. [place] like a hot flash and cold. Chest x-ray showed mild cardiomegaly. No definite acute process. EKG showed sinus rhythm. Laboratory data showed WBC 8.6 hemoglobin 10.8, MCV 77.5 and RDW 17.1 and platelets 170 sodium 138 potassium 3.9 chloride 104 bicarb is 28 BUN 13 creatinine 0.9 and blood sugar 105 liver enzymes are not elevated proBNP 307 04/14/2024 Patient is awake alert and oriented. Still complains of epigastric and mid retrosternal pain and burning sensation. Also complains of nausea. No episodes of vomiting. Denied any hematemesis. No melena. Troponin x 2 negative. 2D echocardiogram was done as per cardiology recommendations. Showed normal left ventricular size and systolic function. Laboratory data showed WBC 7.9 hemoglobin 10.0 and platelets 139 sodium 141 pot assium 4.1 chloride 106 bicarb is 26.8 BUN 25 and creatinine 0.8 patient is also iron deficient. B12 and folate within normal limits. General surgery was consulted due to severe GERD like symptoms. Current medications reviewed. Objective - Vital Signs Vital signs: Vital Signs Temp 98.4 F 04/15/24 07:00 Pulse 80 04/15/24 08:42 Resp 15 04/15/24 07:00 BP 138/85 04/15/24 07:00 Pulse Ox 97 04/15/24 07:00 FiO2 Intake & Output 04/14/24 04/15/24 04/15/24 18:59 06:59 18:59 Intake Total 358 Balance 358 Intake: Oral 358 Other: Voiding Method Toilet Toilet # Voids 1 1 - Exam PHYSICAL EXAMINATION: Patient is lying in the bed comfortably, no acute distress, awake alert and oriented.. HEENT: Normocephalic. Neck is supple. Pupils reactive. Nostrils clear. Oral cavity is moist. Neck reveals no JVD, carotid bruits, or thyromegaly. CHEST EXAMINATION: Trachea is central. Symmetrical expansion. Bibasilar diminished sounds and scattered coarse sounds. No wheezing. Nonlabored breathing. CARDIAC: Normal S1, S2 with no gallops. No murmurs ABDOMEN: Soft. Bowel sounds normal. No organomegaly. No abdominal bruits. Extremities: reveal no edema. No clubbing or cyanosis Neurologically awake, alert, oriented x3 with well-coordinated movements. No focal deficits noted Skin: No rash or skin lesions. Psychiatric: Coperative. Nonsuicidal Musculoskeletal: No joint swelling or deformity. Normal range of motion. - Labs CBC & Chem 7: 04/14/24 04:17 04/14/24 04:17 Assessment and Plan Assessment: Atypical chest pain. Ruled out ACS Possible steroid-induced esophagitis and gastritis Recent bronchitis and has been cough for the past 1 month. Microscopic iron-deficiency anemia Coronary artery disease with prior history of cardiac cath in 2018 medical management was recommended Hypertension Hyperlipidemia GERD Chronic cervical and back pain Anxiety/depression Prior history of smoking DVT prophylaxis with heparin subcu GI prophylaxis PPI Plan: Patient will be continued on telemonitoring. Serial EKG and troponin x 2 negative.. Cardiology has seen the patient. 2D echocardiogram was done showed normal EF and no significant wall motion abnormalities. Patient will be continued on albuterol inhalation and Symbicort and also continue with prednisone c 10 mg daily which she has been taking at home. Prednisone will be on hold. General surgery has seen the patient. Continue with aspirin and metoprolol and statins. Continue PPI and follow-up closely. Time with Patient: Greater than 30
--- NOTE | 2024-04-19 00:06 | P.DS ---
Providers Date of admission: 04/13/24 15:33 Expected date of discharge: 04/15/24 Attending physician: Tucker Ivory Consults: 04/13/24 15:30 Consult Physician Routine Consulting Provider: Nik Delgado Consult Reason/Comments: chest pain Do you want consulting provider notified?: Yes, Notify in am 04/14/24 16:04 Consult Physician Routine Consulting Provider: Emily Burgos Consult Reason/Comments: Epigastric Pain, N/V Do you want consulting provider notified?: Yes Primary care physician: Rossi Lee [facility] Course: Discharge diagnosis Atypical chest pain. Ruled out ACS Possible steroid-induced esophagitis and gastritis. Prednisone has been discontinued. She she has been taking for a month now. Recent bronchitis and has been cough for the past 1 month. Microscopic iron-deficiency anemia Coronary artery disease with prior history of cardiac cath in 2018 medical management was recommended Hypertension Hyperlipidemia GERD Chronic cervical and back pain Anxiety/depression Prior history of smoking DVT prophylaxis with heparin subcu GI prophylaxis PPI Hospital course Patient is a 68-year-old female with a past medical history of coronary artery disease status post catheter placement 2018, GERD, hypertension, hyperlipidemia, chronic bronchitis and chronic cervical and back pain, migraine headaches, anxiety/depression and prior history of smoking. Patient presents to ER with complaints of chest pain mid retrosternal sharp pain radiating to left side of neck/this morning. Associated with chest heaviness and shortness of breath. It felt different than her regular neck pain. She has been having significant cough for the past 1 month due to her bronchitis. Denied any nausea or vomiting. Denied any sputum production. No leg swelling. No complaints of fever or chills. [place] like a hot flash and cold. Chest x-ray showed mild cardiomegaly. No definite acute process. EKG showed sinus rhythm. Laboratory data showed WBC 8.6 hemoglobin 10.8, MCV 77.5 and RDW 17.1 and platelets 170 sodium 138 potassium 3.9 chloride 104 bicarb is 28 BUN 13 creatinine 0.9 and blood sugar 105 liver enzymes are not elevated proBNP 307 04/14/2024 Patient is awake alert and oriented. Still complains of epigastric and mid retrosternal pain and burning sensation. Also complains of nausea. No episodes of vomiting. Denied any hematemesis. No melena. Troponin x 2 negative. 2D echocardiogram was done as per cardiology recommendations. Showed normal left ventricular size and systolic function. Laboratory data showed WBC 7.9 hemoglobin 10.0 and platelets 139 sodium 141 potassium 4.1 chloride 106 bicarb is 26.8 BUN 25 and creatinine 0.8 patient is also iron deficient. B12 and folate within normal limits. General surgery was consulted due to severe GERD like symptoms. 04/15/2024 Patient is resting in the bed. Awake alert and oriented x 3. Epigastric discomfort is better. Continued on PPI. Patient states that she had severe GERD like symptoms when she received heparin subcutaneous injection. Currently symptomatically improving. General surgery recommends outpatient follow-up for endoscopy. Otherwise patient is tolerating oral diet. Patient was given IV iron supplementation. Iron supplementation by mouth once gastritis improves. Follow-up with primary care physician in the next 3 to 5 days and general surgery in a week. Patient is being discharged today. PHYSICAL EXAMINATION: Patient is lying in the bed comfortably, no acute distress, awake alert and oriented.. HEENT: Normocephalic. Neck is supple. Pupils reactive. Nostrils clear. Oral cavity is moist. Neck reveals no JVD, carotid bruits, or thyromegaly. CHEST EXAMINATION: Trachea is central. Symmetrical expansion. Lung curiel clear to auscultation and percussion. CARDIAC: Normal S1, S2 with no gallops. No murmurs ABDOMEN: Soft. Bowel sounds normal. No organomegaly. No abdominal bruits. Extremities: reveal no edema. No clubbing or cyanosis Neurologically awake, alert, oriented x3 with well-coordinated movements. No focal deficits noted Skin: No rash or skin lesions. Psychiatric: Coperative. Nonsuicidal Musculoskeletal: No joint swelling or deformity. Normal range of motion. Vital signs: Vital Signs Temp 98.4 F 04/15/24 07:00 Pulse 80 04/15/24 08:42 Resp 15 04/15/24 07:00 BP 138/85 04/15/24 07:00 Pulse Ox 97 04/15/24 07:00 FiO2 Intake & Output 04/14/24 04/15/24 04/15/24 18:59 06:59 18:59 Intake Total 358 Balance 358 Intake: Oral 358 Other: Voiding Method Toilet Toilet # Voids 1 1 Total time taken greater than 35 minutes including 18 minutes for counseling and coordination of care. Patient Condition at Discharge: Stable Plan - Discharge Summary New Discharge Prescriptions: Continue Pramipexole [Mirapex] 0.5 mg PO HS Sertraline HCl 150 mg PO DAILY clonazePAM 0.5 mg PO TID PRN PRN Reason: Anxiety Zolpidem Tartrate [Ambien] 5 mg PO HS Metoprolol Tartrate [Lopressor] 100 mg PO BID Albuterol Inhaler [Ventolin Hfa Inhaler] 2 puff INHALATION RT-Q4H PRN PRN Reason: Shortness Of Breath Omeprazole 40 mg PO BID HYDROcodone/APAP 10-325MG [[place] 10-325] 1 tab PO Q8H PRN PRN Reason: Pain Rosuvastatin [Crestor] 10 mg PO DAILY Fluticasone Propion/Salmeterol [Advair 250-50 Diskus] 1 puff INHALATION RT- BID PRN PRN Reason: Shortness Of Breath Discontinued predniSONE [Deltasone] 10 mg PO DAILY Discharge Medication List Pramipexole [Mirapex] 0.5 mg PO HS 07/04/15 [History] Sertraline HCl 150 mg PO DAILY 07/04/15 [History] clonazePAM 0.5 mg PO TID PRN 06/25/18 [History] Albuterol Inhaler [Ventolin Hfa Inhaler] 2 puff INHALATION RT-Q4H PRN 10/07/19 [History] Metoprolol Tartrate [Lopressor] 100 mg PO BID 10/07/19 [History] Zolpidem Tartrate [Ambien] 5 mg PO HS 10/07/19 [History] Fluticasone Propion/Salmeterol [Advair 250-50 Diskus] 1 puff INHALATION RT-BID PRN 04/13/24 [History] HYDROcodone/APAP 10-325MG [[place] 10-325] 1 tab PO Q8H PRN 04/13/24 [History] Omeprazole 40 mg PO BID 04/13/24 [History] Rosuvastatin [Crestor] 10 mg PO DAILY 04/13/24 [History] Follow up Appointment(s)/Referral(s): Rossi Lee MD [Primary Care Provider] - 1-2 days Emily Burgos MD [STAFF PHYSICIAN] - 2 Weeks (Please follow up regarding outpatient EGD (esophagogastroduodenoscopy).) Discharge Disposition: HOME SELF-CARE
== END 2024-04-15 14:22 | disposition home or self-care (01) ==
LOC: EC 13:18 → 6NMEDSUR 15:33
PROVIDERS: ADMIT Internal Medicine; ATTEND Internal Medicine
DX: R07.89 Other chest pain (principal); J44.89 Other specified chronic obstructive pulmonary disease; I25.10 Atherosclerotic heart disease of native coronary artery without angina pectoris; E61.1 Iron deficiency; E78.5 Hyperlipidemia, unspecified; I10 Essential (primary) hypertension; G89.29 Other chronic pain; M54.9 Dorsalgia, unspecified; M54.2 Cervicalgia; G25.81 Restless legs syndrome; E66.09 Other obesity due to excess calories; K44.9 Diaphragmatic hernia without obstruction or gangrene; K21.9 Gastro-esophageal reflux disease without esophagitis; F41.9 Anxiety disorder, unspecified; F32.A Depression, unspecified; R68.84 Jaw pain; Z79.899 Other long term (current) drug therapy; Z82.3 Family history of stroke
CPT/HCPCS: 96376 ×3; 96365; 96372 ×2; 96375 ×2; 99285; 36415; 94640 ×2; 93005; 93306; 82747; 83880; 80053 ×2; 82607; 83540; 83550; 83690; 83735; 84484; 85025 ×2; 85610; 85730; 71046; G0378 ×3; J2270 ×3; J1644 ×2; J2405 ×2; J2916; J7512

== ENCOUNTER → 2024-05-28 | Outpatient (CLI) | payer MEDICARE ==
[~2024-05-28] MED LIST changes: -LACTATED RINGERS 1,000 ML IV SCH; -LIDOCAINE 1% (10MG/ML) FOR IV START INTRADERMA ONE; -PROPOFOL 10 MG/ML 20 ML VIAL IV ONE; +REGADENOSON 0.4 MG/5 ML SYRINGE IV PRN
--- NOTE | 2024-05-28 12:52 | NM ---
EXAMINATION TYPE: NM stress lexiscan cardiolite DATE OF EXAM: 05/28/2024 COMPARISON: NONE CLINICAL INDICATION: Female, 68 years old with history of I20.9 ANGINA PECTORIS; history of hypertens ion and family history of coronary artery disease presents with chest pain, palpitations, and difficu lty in breathing. TECHNIQUE: After the intravenous administration of 9.63 mCi Tc 99m Sestamibi - Cardiolite resting SP ECT images acquired 54 minutes post injection. The patient received 0.4mg Lexiscan, 24.3 mCi Tc 99m Sestamibi - Stress images obtained [address] injection FINDINGS: Review of stress and rest SPECT images demonstrates some diminished radiotracer uptake on stress and rest images more prominent on stress images lateral left ventricular wall mid to apical segment in wh ich acute ischemia cannot be excluded. Gated masses show satisfactory wall motion with estimated left ventricular ejection fraction of 57% IMPRESSION: Cannot exclude reversible ischemia lateral left ventricular wall . Further investigation with direct catheter angiogram should be based on clinical and EKG correlation. [facility], , 05/28/2024 12:50 PM
--- NOTE | 2024-05-28 18:22 | CA ---
Lexiscan Nuclear Stress Test Report Name: Sharlene Rock Exam Date: 05/28/2024 10:03 Exam Location: [place] Stress Ht (in): 66 Wt (lb): 192 BSA: 1.97 Ordering Phys: Rossi Lee MD Referring Phys: PAUL Technologist: Edson Hoff Age: 68 Gender: F : 1955 Procedure CPT: Indications: I20.9 angina pectoris ICD-10 Codes: Patient History: CHEST PAIN, DIFFICULTY IN BREATHING, PALPITATIONS, HTN, HYPERCHOLESTEROLEMIA, FAMILY HX OF HEART DISEASE, PRIOR SMOKER Medications: NORCO, AMBIEN, PROVASTATIN, TOPOROL, Meds past 24 hrs: Pretest Chest Pain: STRESS TEST Lexiscan Protocol Exercise Duration (min:sec): 02:[address] Depressions (mm): Angina Score: Sheridan Score: Resting HR (bpm): 74 Peak HR (bpm): 99 Resting BP (mmHg): 158 / 78 Peak BP (mmHg): / 82 MPHR: 153 Target HR: 130 % MPHR: 65 METS: 1.0 Total Dose: Peak Dose: Atropine: Double Product: BP Response: Stress Termination: Stress Symptoms: Stress Summary: ECG ANALYSIS Resting ECG: Stress ECG: CONCLUSIONS RESTING EKG: [Normal sinus rhythm, normal EKG] , Heart rate 69 BPM Patient recieved IV infusion of Lexiscan 0.4mg and at peak infusion STRESS EKG showed: [No significant ST-T wave changes diagnostic for ischemia by ST segment analysis] ARRYTHMIAS: [No ectopic rhythms or sustained arrythmias] CONCLUSION: 1. Normal hemodynamic and clinical response to Lexiscan infusion. 2. Non-ischemic EKG response to lexiscan infusion Please refer to the nuclear imaging portion of this stress test for complete interpretation of the study. Dr Renny Kearney (Electronically Signed) Final Date: 28 May 2024 18:20
== END | disposition home or self-care (01) ==
LOC: RADNMMAIN 08:15
PROVIDERS: ATTEND Family Medicine
DX: I20.9 Angina pectoris, unspecified (principal)
CPT/HCPCS: 93017; 78452; A9500; J2785

== ENCOUNTER → 2024-06-18 | Outpatient (CLI) | payer MEDICARE ==
[2024-06-18 15:34] LABS: HGB 11.6 g/dL (12.0-15.0); MCH 25.2 pg (27.0-32.0); MCHC 30.5 g/dL (32.0-37.0); MCV 82.4 FL (80.0-97.0); Mean Platelet Volume 10.2 FL (9.5-12.2); NRBC Per 100 WBC 0 X 10*3/uL (0.00-0.01); Platelet Count 183 X 10*3/uL (140-440); RBC 4.61 X 10*6/uL (4.10-5.20); RDW 15.3 % (11.5-14.5); WBC 6.44 X 10*3/uL (4.50-10.00)
[2024-06-18 15:41] LABS: Blood Urea Nitrogen 15.4 mg/dL (9.0-27.0); Carbon Dioxide 27.2 mmol/L (21.6-31.8); Chloride 104 mmol/L (96-109); Potassium 4.5 mmol/L (3.5-5.5); Sodium 141 mmol/L (135-145)
== END | disposition home or self-care (01) ==
LOC: LABPAT 11:02
PROVIDERS: ATTEND Internal Medicine Interventional Cardiology
DX: Z01.818 Encounter for other preprocedural examination (principal); R94.39 Abnormal result of other cardiovascular function study
CPT/HCPCS: 80051; 82565; 84520; 85027

== ENCOUNTER → 2024-06-18 | Outpatient (CLI) | payer MEDICARE ==
--- NOTE | 2024-06-18 12:16 | MM ---
Reason for Exam: Screening (asymptomatic). Last mammogram was performed 1 year(s) and 3 month(s) ago. Patient History: Menarche at age 12. First Full-Term at age 26. Left ovary removed at age 37. Right ovary removed at age 37. Hysterectomy at age 37. Postmenopausal. Patient has history of breast feeding. Patient used Estrogen for 12 years. 04/27/1999, Benign Excisional Biopsy on the right side. Risk Values: Makenzie 5 year model risk: 2.4%. NCI Lifetime model risk: 8.3%. Prior Study Comparison: 11/21/2020 Bilateral Diagnostic Mammogram, [facility]. 01/17/2022 Bilateral MG 3D diag mammo w/cad NICK, [facility]. 02/18/2023 Bilateral MG 3D diag mammo w/cad NICK, [facility]. Tissue Density: The breasts are almost entirely fatty. Findings: Analyzed By CAD. Right breast: There is no suspicious group of microcalcifications or new suspicious mass. Left breast: There is no suspicious group of microcalcifications or new suspicious mass. Overall Assessment: Negative, BI-RAD 1 Management: Screening Mammogram of both breasts in [address] [facility] will attempt to contact patient to return for supplemental views and ultrasound if indicated. Patient should continue monthly self-breast exams. A clinical breast exam by your physician is recommended on an annual basis. This exam should not preclude additional follow-up of suspicious palpable abnormalities. Note on Makenzie scores and lifetime risk: 1. A Makenzie score greater than 3% is considered moderate risk. If this is the case, consider specialist referral to assess eligibility for a risk reducing agent. 2. If overall lifetime risk for the development of breast cancer is 20% or higher, the patient may qualify for future screening with alternating mammogram and breast MRI. [facility], , 06/18/2024 12:13 PM. Electronically signed and approved by: Riky Rousseau DO
== END | disposition home or self-care (01) ==
LOC: RADMAMWWP 10:59
PROVIDERS: ATTEND Family Medicine
DX: Z12.31 Encounter for screening mammogram for malignant neoplasm of breast (principal); R92.313 Mammographic fatty tissue density, bilateral breasts; Z78.0 Asymptomatic menopausal state
CPT/HCPCS: 77063; 77067

== ENCOUNTER 2024-11-17 13:32 | Observation (INO) | payer MEDICARE ==
[2024-11-17 14:13] LABS: Basophils # (A) 0.02 10*3/uL (0.00-0.10); Basophils % (A) 0.4 %; Eosinophils # (A) 0.16 10*3/uL (0.04-0.35); Eosinophils % (A) 3.0 %; HCT 33.6 % (37.2-46.3); HGB 10.2 g/dL (12.0-15.0); Lymphocytes # (A) 1.37 10*3/uL (0.90-5.00); Lymphocytes % (A) 25.7 %; MCH 22.3 pg (27.0-32.0); MCHC 30.4 g/dL (32.0-37.0); MCV 73.4 fL (80.0-97.0); Monocytes # (A) 0.32 10*3/uL (0.20-1.00); Monocytes % (A) 6.0 %; Neutrophils # (A) 3.45 10*3/uL (1.80-7.70); Neutrophils % (A) 64.5 %; Platelet Count 182 10*3/uL (140-440); RBC 4.58 10*6/uL (4.10-5.20); RDW 16.3 % (11.5-14.5); WBC 5.34 10*3/uL (4.50-10.00)
[2024-11-17 14:21] LABS: ALT 21 U/L (4-34); AST 28 U/L (14-36); African American GFR (CKD) 82 (>60 ml/min/1.73 sqM); Albumin 4.3 g/dL (3.5-5.0); Alkaline Phosphatase 89 U/L (38-126); Anion Gap 12 mmol/L; Blood Urea Nitrogen 24 mg/dL (7-17); Calcium 9.3 mg/dL (8.4-10.2); Carbon Dioxide 25 mmol/L (22-30); Chloride 103 mmol/L (98-107); Glucose 111 mg/dL (74-99); Non-African American GFR(CKD) 71 (>60 ml/min/1.73 sqM); Potassium 4.5 mmol/L (3.5-5.1); Sodium 140 mmol/L (137-145); Total Protein 6.8 g/dL (6.3-8.2)
[2024-11-17 14:34] LABS: INR 1.1 (<1.2); Partial Thromboplastin Time 32.0 sec (22.0-30.0); Prothrombin Time 12.1 sec (10.0-12.5)
--- NOTE | 2024-11-17 15:10 | ED ---
General Adult HPI - General Source: patient, RN notes reviewed Mode of arrival: wheelchair Limitations: no limitations <Rhonda Bentley - Last Filed: 11/17/24 15:09> <Keith Holliday - Last Filed: 11/19/24 11:57> - General Chief complaint: Chest Pain Stated complaint: Chest Pain Time Seen by Provider: 11/17/24 13:45 - History of Present Illness Initial comments: Quick [id number] female with history of CAD with stent presenting to the emergency department for complaints of left-sided chest pain with radiation to the right side of her chest that occurred while she was moving furniture. She states that this pain started at 1 PM and she took 2 nitro that relieved the symptoms however now is returning. Patient endorsed associated nausea and diaphoresis at the time of the pain. (Rhonda Bentley) 68-year-old female presenting with chief complaint of chest pain. Pain started this afternoon while she was moving around furniture. States that it felt like a heavy ball in her chest and she had radiation into the jaw as well. Patient does have a history of CAD and had a stent placed recently. Pain started around 1 PM. She took 2 nitro which eventually alleviated the pain. She did have some nausea, shortness of breath, and diaphoresis as well. No pain at this time. (Keith Holliday) - Related Data Home Medications Medication Instructions Recorded Confirmed Pramipexole [Mirapex] 0.5 mg PO HS 07/04/15 11/17/24 Sertraline HCl 150 mg PO DAILY 07/04/15 11/17/24 clonazePAM 0.5 mg PO TID PRN 06/25/18 11/17/24 Metoprolol Tartrate [Lopressor] 100 mg PO BID 10/07/19 11/17/24 Zolpidem Tartrate [Ambien] 5 mg PO HS PRN 10/07/19 11/17/24 Fluticasone Propion/Salmeterol 1 puff INHALATION RT-BID PRN 04/13/24 11/17/24 [Advair 250-50 Diskus] HYDROcodone/APAP 10-325MG [[place] 1 tab PO TID 04/13/24 11/17/24 10-325] Omeprazole 40 mg PO BID 04/13/24 11/17/24 Rosuvastatin [Crestor] 10 mg PO DAILY 04/13/24 11/17/24 Previous Rx's Medication Instructions Recorded Clopidogrel [Plavix] 75 mg PO DAILY #90 tablet 06/23/24 Nitroglycerin Sl Tabs [Nitrostat] 0.4 mg SUBLINGUAL Q5M PRN #25 tab 06/23/24 Allergies Allergy/AdvReac Type Severity Reaction Status Date / Time amoxicillin Allergy Rash/Hives Verified 11/17/24 20:15 pumpkin Allergy Anaphylaxis Verified 11/17/24 20:15 Sulfa (Sulfonamide Allergy Anaphylaxis Verified 11/17/24 20:15 Antibiotics) walnut Allergy Anaphylaxis Verified 11/17/24 20:15 heparin AdvReac Nausea & Verified 11/17/24 20:15 Vomiting Review of Systems ROS Other: All systems not noted in ROS Statement are negative. <Rhonda Bentley - Last Filed: 11/17/24 15:09> ROS Other: All systems not noted in ROS Statement are negative. <Keith Holliday - Last Filed: 11/19/24 11:57> ROS Statement: Those systems with pertinent positive or pertinent negative responses have been documented in the HPI. Past Medical History Past Medical History: Coronary Artery Disease (CAD), Chest Pain / Angina, Eye Disorder, GERD/Reflux, Hyperlipidemia, Hypertension, Musculoskeletal Disorder Additional Past Medical History / Comment(s): Bronchitis, coughing "jags", hiatal hernia, hemorrhoids, chronic cervical and back pain, cervical disc degeneration, migraines, RLS, R eye cataract. History of Any Multi-Drug Resistant Organisms: None Reported Past Surgical History: Appendectomy, Section, Cholecystectomy, Heart Catheterization, Hysterectomy, Orthopedic Surgery Additional Past Surgical History / Comment(s): 2018 cardiac cath-treat medically, R knee arthroscopic surgery x2, right foot surg, bilateral heel spur removals, multiple laparoscopies, EGD, colonoscopies. 06/2024 STENT Past Anesthesia/Blood Transfusion Reactions: Motion Sickness, Postoperative Nausea & Vomiting (PONV) Additional Past Anesthesia/Blood Transfusion Reaction / Comment(s): no blood transfusion. mild claustrophobia. hx PONV in the past but not recent. Past Psychological History: Anxiety, Depression Smoking Status: Former smoker - Past Family History Mother Family Medical History: Cancer Additional Family Medical History / Comment(s): w/ sepsis after area removed from pancreas Father Family Medical History: Cancer Additional Family Medical History / Comment(s): stomach Brother(s) Family Medical History: Cancer Additional Family Medical History / Comment(s): colon- at age 52 Sister(s) Family Medical History: CVA/TIA Additional Family Medical History / Comment(s): cva- at age 55 <StiThais bargeroe - Last Filed: 11/17/24 15:09> General Exam Limitations: no limitations <SticelmrRhonda - Last Filed: 11/17/24 15:09> Limitations: no limitations General appearance: alert, in no apparent distress Head exam: Present: atraumatic, normocephalic, normal inspection Eye exam: Present: normal appearance, EOMI Neck exam: Present: normal inspection. Absent: meningismus Respiratory exam: Present: normal lung sounds bilaterally. Absent: respiratory distress, wheezes, rales, rhonchi, stridor Cardiovascular Exam: Present: regular rate, normal rhythm, normal heart sounds. Absent: systolic murmur, diastolic murmur, rubs, gallop, clicks Neurological exam: Present: alert, oriented X3 Psychiatric exam: Present: normal affect, normal mood Skin exam: Present: warm, dry, normal color <Keith Holliday - Last Filed: 11/19/24 11:57> - General Exam Comments Initial Comments: Visual Physical Exam Vital signs reviewed General: Well-appearing, nontoxic, no acute distress. Head: Normocephalic, atraumatic Eyes: PERRLA, EOMI ENT: Airway patent Chest: Nonlabored breathing Skin: No visual rash, normal skin tone Neuro: Alert and oriented 3 Musculoskeletal: No gross abnormalities (Stieler,Rhonda) Course Vital Signs 11/17/24 11/17/24 11/17/24 13:33 16:12 21:56 Temperature 97.8 F Pulse Rate 74 66 72 Respiratory 16 20 18 Rate Blood Pressure 136/68 160/75 157/89 O2 Sat by Pulse 95 97 95 Oximetry 11/18/24 11/18/24 11/18/24 02:17 05:00 07:00 Temperature 98.1 F Pulse Rate 70 76 86 Respiratory 18 18 18 Rate Blood Pressure 144/77 139/80 130/85 O2 Sat by Pulse 97 96 96 Oximetry 07/03/25 07/03/25 07/03/25 10:00 16:00 16:45 Temperature 98.4 F Pulse Rate 82 79 Respiratory 13 16 16 Rate Blood Pressure 144/84 135/78 O2 Sat by Pulse 96 97 96 Oximetry Medical Decision Making - Lab Data Result diagrams: 11/17/24 14:05 11/17/24 14:05 <Rhonda Bentley - Last Filed: 11/17/24 15:09> - Lab Data Result diagrams: 11/19/24 08:06 11/19/24 08:06 <Keith Holliday - Last Filed: 11/19/24 11:57> - Medical Decision Making I completed the quick note portion of this chart signed Rhonda Bentley PA-C (Rhonda Bentley) Was pt. sent in by a medical professional or institution (BENJAMIN Potts, QUALITY ASSURANCE CLERK, urgent care, hospital, or fci...) When possible be specific @ -No Did you speak to anyone other than the patient for history (EMS, parent, family, police, friend...)? What history was obtained from this source @ -No Did you review nursing and triage notes (agree or disagree)? Why? @ -I reviewed and agree with nursing and triage notes Were old charts reviewed (outside hosp., previous admission, EMS record, old EKG, old radiological studies, urgent care reports/EKG's, fci records)? Report findings @ -No old charts were reviewed Differential Diagnosis (chest pain, altered mental status, abdominal pain women, abdominal pain men, vaginal bleeding, weakness, fever, dyspnea, syncope, headache, dizziness, GI bleed, back pain, seizure, CVA, palpatations, mental health, musculoskeletal)? @ -MDM Differential Chest Pain: Stable Angina, Unstable Angina, STEMI, NSTEMI Aortic Dissection, Pneumothorax, Musculoskeletal, Esophageal Spasm GERD, Cholecystitis, Pancreatitis, Zosterâ€¦ This is not meant to be an all-inclusive list. EKG interpreted by me (3pts min.). @ -EKG shows sinus rhythm ventricular rate 75. UT interval 164 QRS 89 QT [address] deviation. X-rays interpreted by me (1pt min.). @ -Test x-ray shows no acute process CT interpreted by me (1pt min.). @ -None done U/S interpreted by me (1pt. min.). @ -None done What testing was considered but not performed or refused? (CT, X-rays, U/S, labs)? Why? @ -None What meds were considered but not given or refused? Why? @ -None Did you discuss the management of the patient with other professionals (professionals i.e. Dr., PA, QUALITY ASSURANCE CLERK, lab, RT, psych nurse, social welfare administrator, principal engineer, teacher, chief informatics officer, geriatric case manager)? Give summary @ -Spoke with Dr. Santo who accepts admission Was smoking cessation discussed for >3mins.? @ -No Was critical care preformed (if so, how long)? @ -No Were there social determinants of health that impacted care today? How? (Homelessness, low income, unemployed, alcoholism, drug addiction, transportation, low edu. Level, literacy, decrease access to med. care, detention, rehab)? @ -No Was there de-escalation of care discussed even if they declined (Discuss DNR or withdrawal of care, Hospice)? DNR status @ -No What co-morbidities impacted this encounter? (DM, HTN, Smoking, COPD, CAD, Cancer, CVA, ARF, Chemo, Hep., AIDS, mental health diagnosis, sleep apnea, morbid obesity)? @ -CAD Was patient admitted / discharged? Hospital course, mention meds given and route, prescriptions, significant lab abnormalities, going to OR and other pertinent info. @ -68-year-old female presenting with chief complaint of chest pain. History of CAD with recent stenting. Workup was initiated by triage and patient was later placed in room and evaluated by myself. Initial workup is negative, patient will be admitted for observation evaluation by cardiology in the morning. Repeat troponins will be drawn. Patient is agreeable with this plan. I discussed this case with my attending Dr. Matias Undiagnosed new problem with uncertain prognosis? @ -No Drug Therapy requiring intensive monitoring for toxicity (Heparin, Nitro, Insulin, Cardizem)? @ -No Were any procedures done? @ -No Diagnosis/symptom? @ -Chest pain Acute, or Chronic, or Acute on Chronic? @ -Acute Uncomplicated (without systemic symptoms) or Complicated (systemic symptoms)? @ -Complicated Side effects of treatment? @ -No Exacerbation, Progression, or Severe Exacerbation? @ -No Poses a threat to life or bodily function? How? (Chest pain, [place], MT, pneumonia, PE, COPD, DKA, ARF, appy, cholecystitis, CVA, Diverticulitis, Homicidal, Dominique cidal, threat to staff... and all critical care pts) @ -Yes (Keith Holliday) - Lab Data Lab Results 11/17/24 11/17/24 11/17/24 Range/Units 14:05 14:05 14:05 WBC 5.34 (4.50-10.00) 10*3/uL RBC 4.58 (4.10-5.20) 10*6/uL Hgb 10.2 L (12.0-15.0) g/dL Hct 33.6 L (37.2-46.3) % MCV 73.4 L (80.0-97.0) fL MCH 22.3 L (27.0-32.0) pg MCHC 30.4 L (32.0-37.0) g/dL Plt Count 182 (140-440) 10*3/uL MPV 9.8 (9.5-12.2) fL Immature Gran % (Auto) 0.4 % Neutrophils % 64.5 % Lymphocytes % 25.7 % Monocytes % 6.0 % Eosinophils % 3.0 % Basophils % 0.4 % Immature Gran # 0.02 (0.00-0.04) 10*3/uL Neutrophils # 3.45 (1.80-7.70) 10*3/uL Lymphocytes # 1.37 (0.90-5.00) 10*3/uL Monocytes # 0.32 (0.20-1.00) 10*3/uL Eosinophils # 0.16 (0.04-0.35) 10*3/uL Basophils # 0.02 (0.00-0.10) 10*3/uL PT 12.1 (10.0-12.5) sec INR 1.1 (<1.2) APTT 32.0 H (22.0-30.0) sec Sodium 140 (137-145) mmol/L Potassium 4.5 (3.5-5.1) mmol/L Chloride 103 (98-107) mmol/L Carbon Dioxide 25 (22-30) mmol/L Anion Gap 12 mmol/L BUN 24 H (7-17) mg/dL Creatinine 0.86 (0.52-1.04) mg/dL Est GFR (CKD-EPI)AfAm 82 (>60 ml/min/1.73 sqM) Est GFR (CKD-EPI)NonAf 71 (>60 ml/min/1.73 sqM) Glucose 111 H (74-99) mg/dL Calcium 9.3 (8.4-10.2) mg/dL Total Bilirubin 0.5 (0.2-1.3) mg/dL AST 28 (14-36) U/L ALT 21 (4-34) U/L Alkaline Phosphatase 89 (38-126) U/L Troponin I (0.000-0.034) ng/mL Total Protein 6.8 (6.3-8.2) g/dL Albumin 4.3 (3.5-5.0) g/dL 11/17/24 Range/Units 14:05 WBC (4.50-10.00) 10*3/uL RBC (4.10-5.20) 10*6/uL Hgb (12.0-15.0) g/dL Hct (37.2-46.3) % MCV (80.0-97.0) fL MCH (27.0-32.0) pg MCHC (32.0-37.0) g/dL Plt Count (140-440) 10*3/uL MPV (9.5-12.2) fL Immature Gran % (Auto) % Neutrophils % % Lymphocytes % % Monocytes % % Eosinophils % % Basophils % % Immature Gran # (0.00-0.04) 10*3/uL Neutrophils # (1.80-7.70) 10*3/uL Lymphocytes # (0.90-5.00) 10*3/uL Monocytes # (0.20-1.00) 10*3/uL Eosinophils # (0.04-0.35) 10*3/uL Basophils # (0.00-0.10) 10*3/uL PT (10.0-12.5) sec INR (<1.2) APTT (22.0-30.0) sec Sodium (137-145) mmol/L Potassium (3.5-5.1) mmol/L Chloride (98-107) mmol/L Carbon Dioxide (22-30) mmol/L Anion Gap mmol/L BUN (7-17) mg/dL Creatinine (0.52-1.04) mg/dL Est GFR (CKD-EPI)AfAm (>60 ml/min/1.73 sqM) Est GFR (CKD-EPI)NonAf (>60 ml/min/1.73 sqM) Glucose (74-99) mg/dL Calcium (8.4-10.2) mg/dL Total Bilirubin (0.2-1.3) mg/dL AST (14-36) U/L ALT (4-34) U/L Alkaline Phosphatase (38-126) U/L Troponin I <0.012 (0.000-0.034) ng/mL Total Protein (6.3-8.2) g/dL Albumin (3.5-5.0) g/dL Disposition <Rhonda Bentley - Last Filed: 11/17/24 15:09> Time of Disposition: 16:53 <Keith Holliday - Last Filed: 11/19/24 11:57> Clinical Impression: Chest pain Disposition: ADMITTED IP TO THIS HOSP Condition: Fair
--- NOTE | 2024-11-17 15:28 | XR ---
EXAMINATION TYPE: XR chest 2V DATE OF EXAM: 11/17/2024 3:25 PM COMPARISON: 04/13/2024 CLINICAL INDICATION: Female, 68 years old with history of chest pain: Shortness of breath TECHNIQUE: XR chest 2V views of the chest are obtained. FINDINGS: Scattered senescent parenchymal changes noted. Hyperinflation compatible with COPD. No evidence for infiltrate. No evidence for atelectasis. Heart size is stable. Mediastinal structures are stable and grossly unremarkable. No evidence for hilar prominence. Degenerative changes dorsal spine. IMPRESSION: 1. No evidence for acute pulmonary disease. [facility], , 11/17/2024 3:26 PM
[2024-11-17] MEDS ORDERED: NALOXONE 0.4 MG/ML 1 ML VIAL IV PRN (17:05)
[2024-11-17] MEDS: ASPIRIN 81 MG PO STA (17:22)
[2024-11-17] MEDS: NITROGLYCERIN OINT 1 INCH/GM PACKET TOPICAL STA (17:25)
[2024-11-17] MEDS: HYDROcodone/APAP 5-325MG 1 EACH TAB PO PRN (23:54)
[2024-11-17] MEDS: clonazePAM 0.5 MG TAB PO SCH (23:55)
[2024-11-18] MEDS: ZOLPIDEM 5 MG TAB PO PRN (00:34)
[2024-11-18 09:18] LABS: HCT 32.7 % (37.2-46.3); HGB 9.7 g/dL (12.0-15.0); MCH 22.0 pg (27.0-32.0); MCHC 29.7 g/dL (32.0-37.0); MCV 74.1 fL (80.0-97.0); Platelet Count 143 10*3/uL (140-440); RBC 4.41 10*6/uL (4.10-5.20); RDW 16.4 % (11.5-14.5); WBC 5.15 10*3/uL (4.50-10.00)
[2024-11-18 09:29] LABS: African American GFR (CKD) 88 (>60 ml/min/1.73 sqM); Anion Gap 8 mmol/L; Blood Urea Nitrogen 16 mg/dL (7-17); Calcium 9.2 mg/dL (8.4-10.2); Carbon Dioxide 28 mmol/L (22-30); Chloride 105 mmol/L (98-107); Glucose 113 mg/dL (74-99); Non-African American GFR(CKD) 76 (>60 ml/min/1.73 sqM); Potassium 3.9 mmol/L (3.5-5.1); Sodium 141 mmol/L (137-145)
[2024-11-18] MEDS: ATORVASTATIN 20 MG TAB PO SCH (09:56)
[2024-11-18] MEDS: METOPROLOL TARTRATE 50 MG TAB PO SCH (09:57)
[2024-11-18] MEDS: PANTOPRAZOLE 40 MG TABLET PO SCH (09:58)
[2024-11-18] MEDS: CLOPIDOGREL 75 MG TAB PO SCH (09:59)
[2024-11-18] MEDS: ASPIRIN 81 MG PO SCH (10:00)
[2024-11-18] MEDS: SERTRALINE 50 MG TAB PO SCH (10:07)
[2024-11-18] MEDS ORDERED: ALPRAZolam 0.5 MG TAB PO PRN (10:14)
[2024-11-18] MEDS ORDERED: ALPRAZolam 0.25 MG TAB PO PRN (10:14)
[2024-11-18] MEDS ORDERED: NITROGLYCERIN SL TABS 0.4 MG TAB SUBLINGUAL PRN (10:14)
--- NOTE | 2024-11-18 10:55 | P.CRDCN ---
History of Present Illness History of present illness: HISTORY OF PRESENT ILLNESS: This is a 68-year-old female with a past medical history significant for coronary artery disease with previous stenting of the RCA, hypertension, and hyperlipidemia. Patient follows in the office with Dr. Gibson. We have been asked to see the patient in consultation for chest pain. Patient examined at the bedside emergency room. Patient states she was watching her grandson yesterday. She was moving around furniture in his room. Afterward she began to have chest discomfort. She states the pain was in the middle of her chest and radiated into her neck and her jaw. She states she has not had pain like this before. She denies any further episodes of chest pain or shortness of breath. DIAGNOSTICS: - EKG reveals sinus mechanism with no signs of acute ischemia. - Chest xray negative for acute process. - Laboratory data: Troponin negative x 3 - Current home cardiac medications include Plavix 75 mg daily, Toprol tartrate 100 mg twice a day, Crestor 10 mg daily. - Most recent echocardiogram obtained in March 2024 revealed normal EF, mild MR, mild TR - Cardiac catheterization history: June 2024 with stenting of the mid RCA. Mild disease otherwise. REVIEW OF SYSTEMS: At the time of my exam: CONSTITUTIONAL: Denies fever or chills. HEENT: Denies blurred vision, vision changes, or eye pain. Denies hemoptysis CARDIOVASCULAR: Denies chest pain. Denies orthopnea. Denies PND. Denies palpitations RESPIRATORY: Denies shortness of breath. GASTROINTESTINAL: Denies abdominal pain. Denies nausea or vomiting. HEMATOLOGIC: Denies bleeding disorders. GENITOURINARY: Denies any blood in urine. SKIN: Denies pruitis. Denies rash. PHYSICAL EXAM: VITAL SIGNS: Reviewed. GENERAL: Well-developed in no acute distress. HEENT: Head is normocephalic. Pupils are equal, round. Sclerae anicteric. Mucous membranes of the mouth are moist. Neck supple. No JVD or thyromegaly LUNGS: Respirations even and unlabored. Lungs essentially clear to auscultation bilaterally. HEART: Regular rate and rhythm. S1 and S2 heard. ABDOMEN: Soft. Nondistended. Nontender. EXTREMITIES: Normal range of motion. No clubbing or cyanosis. Peripheral pulses intact. No lower extremity edema NEUROLOGIC: Awake and alert. Oriented x 3. ASSESSMENT: Chest pain/unstable angina Coronary artery disease with previous stenting of the RCA, 06/2024 Hypertension Hyperlipidemia PLAN: Resume home cardiac medications NPO at midnight Patient to undergo cardiac cath tomorrow with Dr. Gibson Further recommendations pending patient course Nurse practitioner note has been reviewed by physician. Signing provider agrees with the documented findings, assessment, and plan of care documented by BREASTER as a scribe. Past Medical History Past Medical History: Coronary Artery Disease (CAD), Chest Pain / Angina, Eye Disorder, GERD/Reflux, Hyperlipidemia, Hypertension, Musculoskeletal Disorder Additional Past Medical History / Comment(s): Bronchitis, coughing "jags", hiatal hernia, hemorrhoids, chronic cervical and back pain, cervical disc degeneration, migraines, RLS, R eye cataract. History of Any Multi-Drug Resistant Organisms: None Reported Past Surgical History: Appendectomy, Section, Cholecystectomy, Heart Catheterization, Hysterectomy, Orthopedic Surgery Additional Past Surgical History / Comment(s): 2018 cardiac cath-treat medically, R knee arthroscopic surgery x2, right foot surg, bilateral heel spur removals, multiple laparoscopies, EGD, colonoscopies. 06/2024 STENT Past Anesthesia/Blood Transfusion Reactions: Motion Sickness, Postoperative Nausea & Vomiting (PONV) Additional Past Anesthesia/Blood Transfusion Reaction / Comment(s): no blood transfusion. mild claustrophobia. hx PONV in the past but not recent. Past Psychological History: Anxiety, Depression Smoking Status: Former smoker - Past Family History Mother Family Medical History: Cancer Additional Family Medical History / Comment(s): w/ sepsis after area removed from pancreas Father Family Medical History: Cancer Additional Family Medical History / Comment(s): stomach Brother(s) Family Medical History: Cancer Additional Family Medical History / Comment(s): colon- at age 52 Sister(s) Family Medical History: CVA/TIA Additional Family Medical History / Comment(s): cva- at age 55 Medications and Allergies Home Medications Medication Instructions Recorded Confirmed Type Pramipexole [Mirapex] 0.5 mg PO HS 07/04/15 11/17/24 History Sertraline HCl 150 mg PO DAILY 07/04/15 11/17/24 History clonazePAM 0.5 mg PO TID PRN 06/25/18 11/17/24 History Metoprolol Tartrate [Lopressor] 100 mg PO BID 10/07/19 11/17/24 History Zolpidem Tartrate [Ambien] 5 mg PO HS PRN 10/07/19 11/17/24 History Fluticasone Propion/Salmeterol 1 puff INHALATION RT-BID PRN 04/13/24 11/17/24 History [Advair 250-50 Diskus] HYDROcodone/APAP 10-325MG [[place] 1 tab PO TID 04/13/24 11/17/24 History 10-325] Omeprazole 40 mg PO BID 04/13/24 11/17/24 History Rosuvastatin [Crestor] 10 mg PO DAILY 04/13/24 11/17/24 History Clopidogrel [Plavix] 75 mg PO DAILY #90 tablet 06/23/24 11/17/24 Rx Nitroglycerin Sl Tabs [Nitrostat] 0.4 mg SUBLINGUAL Q5M PRN #25 tab 06/23/24 11/17/24 Rx Allergies Allergy/AdvReac Type Severity Reaction Status Date / Time amoxicillin Allergy Rash/Hives Verified 11/17/24 20:15 pumpkin Allergy Anaphylaxis Verified 11/17/24 20:15 Sulfa (Sulfonamide Allergy Anaphylaxis Verified 11/17/24 20:15 Antibiotics) walnut Allergy Anaphylaxis Verified 11/17/24 20:15 heparin AdvReac Nausea & Verified 11/17/24 20:15 Vomiting Physical Exam Vitals: Vital Signs Temp Pulse Resp BP Pulse Ox 11/18/24 07:00 98.1 F 86 18 130/85 96 11/18/24 05:00 76 18 139/80 96 11/18/24 02:17 70 18 144/77 97 11/17/24 21:56 72 18 157/89 95 11/17/24 16:12 66 20 160/75 97 11/17/24 13:33 97.8 F 74 16 136/68 95 Results 11/18/24 09:03 11/18/24 09:03 Cardiac Enzymes 11/17/24 11/17/24 11/17/24 Range/Units 14:05 14:05 17:41 AST 28 (14-36) U/L Troponin I <0.012 <0.012 (0.000-0.034) ng/mL 11/17/24 Range/Units 20:14 AST (14-36) U/L Troponin I <0.012 (0.000-0.034) ng/mL Coagulation 11/17/24 Range/Units 14:05 PT 12.1 (10.0-12.5) sec APTT 32.0 H (22.0-30.0) sec CBC 11/17/24 11/18/24 Range/Units 14:05 09:03 WBC 5.34 5.15 (4.50-10.00) 10*3/uL RBC 4.58 4.41 (4.10-5.20) 10*6/uL Hgb 10.2 L 9.7 L (12.0-15.0) g/dL Hct 33.6 L 32.7 L (37.2-46.3) % Plt Count 182 143 (140-440) 10*3/uL Comprehensive Metabolic Panel 11/17/24 11/18/24 Range/Units 14:05 09:03 Sodium 140 141 (137-145) mmol/L Potassium 4.5 3.9 (3.5-5.1) mmol/L Chloride 103 105 (98-107) mmol/L Carbon Dioxide 25 28 (22-30) mmol/L BUN 24 H 16 (7-17) mg/dL Creatinine 0.86 0.81 (0.52-1.04) mg/dL Glucose 111 H 113 H (74-99) mg/dL Calcium 9.3 9.2 (8.4-10.2) mg/dL AST 28 (14-36) U/L ALT 21 (4-34) U/L Alkaline Phosphatase 89 (38-126) U/L Total Protein 6.8 (6.3-8.2) g/dL Albumin 4.3 (3.5-5.0) g/dL Current Medications Generic Name Dose Route Start Last Admin Trade Name Freq PRN Reason Stop Dose Admin Hydrocodone Bitart/Acetaminophen 1 each 11/17/24 23:37 11/18/24 10:05 Hydrocodone/Apap 5-325mg 1 Each Tab PO 1 each Q4HR PRN Administration Pain Alprazolam 0.25 mg 11/18/24 10:14 Alprazolam 0.25 Mg Tab PO Q6HR PRN Mild Anxiety Alprazolam 0.5 mg 11/18/24 10:14 Alprazolam 0.5 Mg Tab PO Q6HR PRN Moderate Anxiety Aspirin 81 mg 11/18/24 09:00 11/18/24 10:00 Aspirin 81 Mg PO 81 mg DAILY JOI Administration Aspirin 325 mg 11/19/24 05:00 Aspirin 325 Mg Tab PO 11/19/24 05:01 ONCE ONE Atorvastatin Calcium 20 mg 11/18/24 09:00 11/18/24 09:56 Atorvastatin 20 Mg Tab PO 20 mg DAILY JOI Administration Atorvastatin Calcium 80 mg 11/19/24 05:00 Atorvastatin 80 Mg Tab PO 11/19/24 05:01 ONCE ONE Clonazepam 0.5 mg 11/17/24 23:45 11/18/24 09:58 Clonazepam 0.5 Mg Tab PO 0.5 mg TID JOI Administration Clopidogrel Bisulfate 75 mg 11/18/24 09:00 11/18/24 09:59 Clopidogrel 75 Mg Tab PO 75 mg DAILY JOI Administration Heparin Sodium (Porcine) 10, 1,001 mls @ 999 mls/hr 11/19/24 07:00 000 unit/ Sodium Chloride IRRIGATION 11/19/24 23:00 ONCE PRN INTRA-OP Heparin Sodium (Porcine) 2,500 250.5 mls @ 250 mls/hr 11/19/24 07:00 unit/ Sodium Chloride IRRIGATION 11/19/24 23:00 ONCE PRN INTRA-OP Sodium Chloride 1,000 ml/ IV 1,000 mls @ 81.647 mls/hr 11/18/24 23:00 Solution IV .[id number] JOI 1 ML/KG/HR Metoprolol Tartrate 100 mg 11/18/24 09:00 11/18/24 09:57 Metoprolol Tartrate 50 Mg Tab PO 100 mg BID JOI Administration Naloxone HCl 0.2 mg 11/17/24 17:05 Naloxone 0.4 Mg/Ml 1 Ml Vial IV Q2M PRN Opioid Reversal Nitroglycerin 0.4 mg 11/18/24 10:14 Nitroglycerin Sl Tabs 0.4 Mg Tab SUBLINGUAL Q5M PRN Chest Pain Pantoprazole Sodium 40 mg 11/18/24 09:00 11/18/24 09:58 Pantoprazole 40 Mg Tablet PO 40 mg BID JOI Administration Sertraline HCl 150 mg 11/18/24 09:00 11/18/24 10:07 Sertraline 50 Mg Tab PO 150 mg DAILY JOI Administration Zolpidem Tartrate 5 mg 11/18/24 00:03 11/18/24 00:34 Zolpidem 5 Mg Tab PO 5 mg HS PRN Administration Insomnia 11/18/24 09:03 11/18/24 09:03
--- NOTE | 2024-11-18 15:47 | P.HPIM ---
History of Present Illness H&P Date: 11/18/24 Chief Complaint: Chest pain History of present illness; 68-year-old female with a past medical history of CAD status post stenting, GERD, hyperlipidemia, hypertension presents with complaints of chest pain. Reports she has been having some left-sided chest pain with radiation to the right side of her chest that occurred while she was moving furniture earlier yesterday. Reports the pain started around 1 PM and she took 2 nitro glycerin at that time which seemed to relieve her symptoms however the pain returned which is why she decided to come to the ER for further evaluation. Admits to nausea and diaphoresis at the time of pain. Upon seeing the patient today she admitted to some "twinge" In the ER patient's labs were significant for WBC 5.3, hemoglobin 10.2, MCV 73.4, APTT 32, sodium 140, potassium 4.5, BUN 24, creatinine 0.86, glucose 111, troponin less than 0.012 x 3, and calcium 9.3. Chest x-ray in the ER significant for no evidence of acute pulmonary process. EKG in the ER showed NSR, ventricular rate of 75 bpm, QTc 405. Based on the patient's cardiac history and previous stenting it was deemed necessary for the patient to be admitted to the ER for further evaluation. Labs today: WBC 5.5, hemoglobin 9.7, MCV 74.1, sodium 141, potassium 3.9, glucose 113, creatinine 0.81, and calcium 9.2. REVIEW OF SYSTEMS: As stated above in HPI. The rest of the 14-point review of systems is negative. PHYSICAL EXAMINATION: GENERAL: The patient is alert and oriented x3, not in any acute distress. Well developed, well nourished. HEENT: Pupils are round and equally reacting to light. EOMI. No scleral icterus. No conjunctival pallor. Normocephalic, atraumatic. CARDIOVASCULAR: S1 and S2 present. No murmurs, rubs, or gallops. PULMONARY: Chest is clear to auscultation b/l, no wheezing or crackles. ABDOMEN: Soft, nontender, nondistended, normoactive bowel sounds. No palpable organomegaly. MUSCULOSKELETAL: No joint swelling or deformity. EXTREMITIES: No cyanosis, clubbing, or pedal edema. NEUROLOGICAL: Gross neurological examination did not reveal any focal deficits. SKIN: No rashes. Assessment and Plan #Atypical chest pain #History of CAD with stenting -Patient underwent cardiac cath in June of this year which showed significant stenosis in the mid RCA, mild disease in the mid LAD, successful stenting of the mid RCA with reduction of stenosis from 80% to less than 5% with IVUS imaging - Cardiology on consult, appreciate further recommendations -Cardiac cath scheduled for tomorrow, n.p.o. after midnight - Continue home cardiac medications including Plavix and 5 mg daily, Lopressor 100 mg p.o. twice daily, and rosuvastatin 10 mg p.o. daily - Continue aspirin 81 mg daily Chronic Conditions: #Depression #GERD - Continue home medications including sertraline 100 mg daily and omeprazole 40 mg twice daily F: None E: None N: Heart healthy diet DVT ppx: SCDs GI ppx: Omeprazole 40 mg twice daily p.o. CODE STATUS: Full code Dispo: Pending clinical course Darlene Gil MD PGY-2 FM Dictation was produced using [employer] dictation software. please excuse any grammatical, word or spelling errors. Attestation I have seen and examined this patient with my resident , discussed the same with the resident/BHAVYA, and agree with the dictator's assessment and plan as written Dr. Rosalino meier Past Medical History Past Medical History: Coronary Artery Disease (CAD), Chest Pain / Angina, Eye Disorder, GERD/Reflux, Hyperlipidemia, Hypertension, Musculoskeletal Disorder Additional Past Medical History / Comment(s): Bronchitis, coughing "jags", hiatal hernia, hemorrhoids, chronic cervical and back pain, cervical disc degeneration, migraines, RLS, R eye cataract. History of Any Multi-Drug Resistant Organisms: None Reported Past Surgical History: Appendectomy, Section, Cholecystectomy, Heart Catheterization, Hysterectomy, Orthopedic Surgery Additional Past Surgical History / Comment(s): 2018 cardiac cath-treat medically, R knee arthroscopic surgery x2, right foot surg, bilateral heel spur removals, multiple laparoscopies, EGD, colonoscopies. 06/2024 STENT Past Anesthesia/Blood Transfusion Reactions: Motion Sickness, Postoperative Nausea & Vomiting (PONV) Additional Past Anesthesia/Blood Transfusion Reaction / Comment(s): no blood transfusion. mild claustrophobia. hx PONV in the past but not recent. Past Psychological History: Anxiety, Depression Smoking Status: Former smoker - Past Family History Mother Family Medical History: Cancer Additional Family Medical History / Comment(s): w/ sepsis after area removed from pancreas Father Family Medical History: Cancer Additional Family Medical History / Comment(s): stomach Brother(s) Family Medical History: Cancer Additional Family Medical History / Comment(s): colon- at age 52 Sister(s) Family Medical History: CVA/TIA Additional Family Medical History / Comment(s): cva- at age 55 Medications and Allergies Home Medications Medication Instructions Recorded Confirmed Type Pramipexole [Mirapex] 0.5 mg PO HS 07/04/15 11/17/24 History Sertraline HCl 150 mg PO DAILY 07/04/15 11/17/24 History clonazePAM 0.5 mg PO TID PRN 06/25/18 11/17/24 History Metoprolol Tartrate [Lopressor] 100 mg PO BID 10/07/19 11/17/24 History Zolpidem Tartrate [Ambien] 5 mg PO HS PRN 10/07/19 11/17/24 History Fluticasone Propion/Salmeterol 1 puff INHALATION RT-BID PRN 04/13/24 11/17/24 History [Advair 250-50 Diskus] HYDROcodone/APAP 10-325MG [[place] 1 tab PO TID 04/13/24 11/17/24 History 10-325] Omeprazole 40 mg PO BID 04/13/24 11/17/24 History Rosuvastatin [Crestor] 10 mg PO DAILY 04/13/24 11/17/24 History Clopidogrel [Plavix] 75 mg PO DAILY #90 tablet 06/23/24 11/17/24 Rx Nitroglycerin Sl Tabs [Nitrostat] 0.4 mg SUBLINGUAL Q5M PRN #25 tab 06/23/24 11/17/24 Rx Allergies Allergy/AdvReac Type Severity Reaction Status Date / Time amoxicillin Allergy Rash/Hives Verified 11/17/24 20:15 pumpkin Allergy Anaphylaxis Verified 11/17/24 20:15 Sulfa (Sulfonamide Allergy Anaphylaxis Verified 11/17/24 20:15 Antibiotics) walnut Allergy Anaphylaxis Verified 11/17/24 20:15 heparin AdvReac Nausea & Verified 11/17/24 20:15 Vomiting Physical Exam Vitals: Vital Signs Temp Pulse Resp BP Pulse Ox 11/18/24 07:00 98.1 F 86 18 130/85 96 11/18/24 05:00 76 18 139/80 96 11/18/24 02:17 70 18 144/77 97 11/17/24 21:56 72 18 157/89 95 11/17/24 16:12 66 20 160/75 97 11/17/24 13:33 97.8 F 74 16 136/68 95 Results CBC & Chem 7: 11/19/24 08:06 11/18/24 09:03 Labs: Abnormal Lab Results - Last 24 Hours (Table) 11/17/24 11/17/24 11/17/24 Range/Units 14:05 14:05 14:05 Hgb 10.2 L (12.0-15.0) g/dL Hct 33.6 L (37.2-46.3) % MCV 73.4 L (80.0-97.0) fL MCH 22.3 L (27.0-32.0) pg MCHC 30.4 L (32.0-37.0) g/dL APTT 32.0 H (22.0-30.0) sec BUN 24 H (7-17) mg/dL Glucose 111 H (74-99) mg/dL
[2024-11-19] MEDS: SODIUM CHLORIDE 0.9% 1,000 ML in EMPTY BAG 1 BAG IV SCH (00:28)
[2024-11-19] MEDS: ATORVASTATIN 80 MG TAB PO ONE (06:05)
[2024-11-19] MEDS: ASPIRIN 325 MG TAB PO ONE (06:05)
[2024-11-19 08:56] LABS: HCT 31.4 % (37.2-46.3); HGB 9.3 g/dL (12.0-15.0); MCH 22.0 pg (27.0-32.0); MCHC 29.6 g/dL (32.0-37.0); MCV 74.4 fL (80.0-97.0); Platelet Count 131 10*3/uL (140-440); RBC 4.22 10*6/uL (4.10-5.20); RDW 16.7 % (11.5-14.5); WBC 4.84 10*3/uL (4.50-10.00)
[2024-11-19] MEDS: fentaNYL (PF) 50 MCG/1 ML VIAL IVP ONE (09:00)
[2024-11-19] MEDS: LIDOCAINE 1% INJ 10MG/ML (20 ML MDV) SQ ONE (09:01)
[2024-11-19] MEDS: SODIUM CHLORIDE 0.9% 1,000 ML IV ONE (09:05)
[2024-11-19] MEDS: HEPARIN SODIUM,PORCINE (1 ML) 2,500 UNIT in SODIUM CHLORIDE 0.9% 250 ML IRRIGATION PRN (09:06)
[2024-11-19] MEDS: HEPARIN SODIUM,PORCINE 10,000 UNIT in SODIUM CHLORIDE 0.9% 1,000 ML IRRIGATION PRN (09:06)
[2024-11-19 09:09] LABS: African American GFR (CKD) 82 (>60 ml/min/1.73 sqM); Anion Gap 7 mmol/L; Blood Urea Nitrogen 16 mg/dL (7-17); Calcium 9.0 mg/dL (8.4-10.2); Carbon Dioxide 27 mmol/L (22-30); Chloride 108 mmol/L (98-107); Glucose 113 mg/dL (74-99); Non-African American GFR(CKD) 71 (>60 ml/min/1.73 sqM); Potassium 3.8 mmol/L (3.5-5.1); Sodium 142 mmol/L (137-145)
[2024-11-19] MEDS: MIDAZOLAM 2 MG/2 ML VIAL IVP ONE (09:13)
[2024-11-19] MEDS: HEPARIN SODIUM 1,000 UN/ML (10ML VL) IVP ONE (09:25)
[2024-11-19] MEDS: NITROGLYCERIN 1000MCG/10ML SYRINGE INTRACORON ONE (09:28)
[2024-11-19] MEDS: IOPAMIDOL-370 100ML BTL INJ ONE (09:34)
[2024-11-19] MEDS ORDERED: RX INFO: IV CONTRAST WAS GIVEN 1 EACH MISC MISCELLANE PRN (09:39)
--- NOTE | 2024-11-19 09:45 | P.CARDCATH ---
Date of Procedure: 11/19/24 Description of Procedure: Cardiac Catheterization: The patient is a 68-year-old female with a history of hypertension and hyperlipidemia status post stenting of the RCA in June 2024 who presented with symptoms of chest discomfort but no evidence of acute myocardial infarction, she was evaluated by Dr. Bell. Recommendations were made regarding cardiac catheterization, the risks and the complications were discussed with the patient who is in full understanding and agreement. Procedure Description: Patient was brought to computer lab aide in fasting semi-sedated state after receiving Fentanyl and Benadryl achieiving moderate conscious sedated state. Using Xylocaine Anesthesia and modified Seldinger technique, and using a micropuncture technique a 6-Mohawk sheath was introduced in the right femoral artery, attempt to cannulate the radial artery was unsuccessful. Subsequently, selective coronary angiography was performed using a 6-Mohawk 4 bend Estrella catheter. Multiple views of the coronary artery including hemiaxial views were obtained. The 6 [place]awk pigtail catheter was used to cross the aortic valve and LVEDP was calculated. IFR measurement: After removing the catheters a 6 [place] 0.75 guiding catheter was introduced into the system and after cannulating the right coronary ostium and Omni Doppler flow wire was introduced in the right coronary artery and IFR was measured at 0.97. Following that, catheter and sheath were removed. Hemostasis was obtained with deployment of an Angio-Seal. There was no immediate complication. Patient was returned to room in stable condition. Of note, the patient received a total of 5000 units of intravenous heparin . Findings: Left main: This is a large size vessel, bifurcating into LAD and left circumflex, left main has no obstructive disease LAD: This is a large size vessel, reaching to the apex with a wraparound apex segment giving rise to 3 small diagonal branch. The LAD and its branches have no obstructive disease Left circumflex: This is a large nondominant vessel, giving rise to a large obtuse marginal branch that has no evidence of obstructive disease. RCA: This is a large dominant vessel, bifurcating distally to PDA and PLV. The stented segment in the mid RCA is patent with no evidence of in-stent restenosis. There was a 50% plaque proximal to the stent. IFR to the RCA: IFR to the RCA is 0.97 Left Ventriculogram: Not performed Hemodynamics: There was no gradient across the aortic valve, LVEDP was 8-10 mmHg Conclusion: 1. Patent stent in the mid RCA with 50% plaque proximal to the stent 2. Nonhemodynamically significant IFR to the RCA at 0.97 3. No evidence of obstructive disease in the left circumflex and LAD 4. Right dominance Recommendations: I have recommended to continue medical therapy I see no evidence of significant progression of disease, she will continue on her present medical regimen with t he aggressive coronary risks modification that had been initiated. The findings and the recommendations were discussed with the patient and the family and they were in full understanding and agreement. Duration of sedation is 30 minutes.
[2024-11-19] MEDS: SODIUM CHLORIDE 0.9% 1,000 ML IV SCH (10:18)
--- NOTE | 2024-11-19 14:30 | P.DS ---
Providers Date of admission: 11/17/24 16:22 Attending physician: Arpita Dempsey Consults: 11/17/24 17:05 Consult Physician Urgent Consulting Provider: [facility] Consult Reason/Comments: chest pain Do you want consulting provider notified?: Yes, Notify in am Primary care physician: Rossi Lee Hospital Course: Discharge Diagnosis: Chest pain/unstable angina Coronary artery disease with previous stenting of the RCA, 06/2024 Hypertension Hyperlipidemia Depression GERD Hospital Course: 68-year-old female with a past medical history of CAD status post stenting, GERD, hyperlipidemia, hypertension presents with complaints of chest pain. Reports she has been having some left-sided chest pain with radiation to the right side of her chest that occurred while she was moving furniture earlier yesterday. Reports the pain started around 1 PM and she took 2 nitro glycerin at that time which seemed to relieve her symptoms however the pain returned which is why she decided to come to the ER for further evaluation. Admits to nausea and diaphoresis at the time of pain. Upon seeing the patient today she admitted to some "twinge" in her chest, but reported the pain was much less significant than before. In the ER patient's labs were significant for WBC 5.3, hemoglobin 10.2, MCV 73.4, APTT 32, sodium 140, potassium 4.5, BUN 24, creatinine 0.86, glucose 111, troponin less than 0.012 x 3, and calcium 9.3. Chest x-ray in the ER significant for no evidence of acute pulmonary process. EKG in the ER showed NSR, ventricular rate of 75 bpm, QTc 405. Based on the patient's cardiac history and previous stenting it was deemed necessary for the patient to be admitted to the ER for further evaluation. While admitted to the hospital patient underwent cardiac catheterization which showed patent stent in the mid RCA with 30% plaque proximal to the stent, nonhemodynamically significant IFR to the RCA at 0.97, no evidence obstructive disease in the left circumflex and LAD, and right dominance. At this point in time the patient's chest pain was significantly improved from when she initially arrived. Cardiology recommended the patient be maintained on current cardiac medication regiment with no changes at this time. Patient is advised to follow- up with their PCP and cardiology after discharge. At time of discharge patient was hemodynamically stable. Pt seen and examined at bedside: No significant overnight events, no new complaints for the patient. Vital signs reveiwed and stable: General: non toxic, no distress, appears at stated age, normal weight Derm: no unusual rashes/lesions, warm Head: atraumatic, normocephalic, symmetric Eyes: EOMI, no lid lag, anicteric sclera, pupils equal round reactive to light ENT: Nose and ears atraumatic Neck: No cervical lymphadenopathy, trachea midline, supple Mouth: no lip lesion, mucus membranes moist Cardiovascular: S1S2 reg, no murmur, positive dorsalis pedis pulse bilateral, no edema Lungs: Decreased air entry bilaterally, no rhonchi, no rales, no accessory muscle use Abdominal: soft, nontender to palpation, no guarding Ext: muscle strength 5 out of 5 in all 4 extremities grossly, no gross muscle atrophy, no contractures, Neuro: CN II-XI grossly intact, no gross focal neuro deficits Psych: Alert, oriented, appropriate affect A total of greater than 30 minutes were spent preparing this complex discarge summary. Patient was discharged on 11/19/2024. Attestation I have seen and examined this patient with my resident , discussed the same with the resident/BHAVYA, and agree with the dictator's assessment and plan as written Dr. Rosalino meier Patient Condition at Discharge: Fair Plan - Discharge Summary Discharge Rx Participant: No New Discharge Prescriptions: Continue Pramipexole [Mirapex] 0.5 mg PO HS Sertraline HCl 150 mg PO DAILY clonazePAM 0.5 mg PO TID PRN PRN Reason: Anxiety Zolpidem Tartrate [Ambien] 5 mg PO HS PRN PRN Reason: Insomnia Metoprolol Tartrate [Lopressor] 100 mg PO BID Omeprazole 40 mg PO BID HYDROcodone/APAP 10-325MG [[place] 10-325] 1 tab PO TID Rosuvastatin [Crestor] 10 mg PO DAILY Nitroglycerin Sl Tabs [Nitrostat] 0.4 mg SUBLINGUAL Q5M PRN #25 tab PRN Reason: Chest Pain Clopidogrel [Plavix] 75 mg PO DAILY #90 tablet Fluticasone Propion/Salmeterol [Advair 250-50 Diskus] 1 puff INHALATION RT- BID PRN PRN Reason: Shortness Of Breath Discharge Medication List Pramipexole [Mirapex] 0.5 mg PO HS 07/04/15 [History] Sertraline HCl 150 mg PO DAILY 07/04/15 [History] clonazePAM 0.5 mg PO TID PRN 06/25/18 [History] Metoprolol Tartrate [Lopressor] 100 mg PO BID 10/07/19 [History] Zolpidem Tartrate [Ambien] 5 mg PO HS PRN 10/07/19 [History] Fluticasone Propion/Salmeterol [Advair 250-50 Diskus] 1 puff INHALATION RT-BID PRN 04/13/24 [History] HYDROcodone/APAP 10-325MG [[place] 10-325] 1 tab PO TID 04/13/24 [History] Omeprazole 40 mg PO BID 04/13/24 [History] Rosuvastatin [Crestor] 10 mg PO DAILY 04/13/24 [History] Clopidogrel [Plavix] 75 mg PO DAILY #90 tablet 06/23/24 [Rx] Nitroglycerin Sl Tabs [Nitrostat] 0.4 mg SUBLINGUAL Q5M PRN #25 tab 06/23/24 [Rx] Follow up Appointment(s)/Referral(s): Cindy Gibson MD [STAFF PHYSICIAN] - 2 Weeks Rossi Lee MD [Primary Care Provider] - 1-2 days Patient Instructions/Handouts: Chest Pain (DC), Heart Catheterization (DC) Discharge Disposition: HOME SELF-CARE
[2024-11-19 15:07] VITALS: BP 151/85; PULSE 70; RESP 16; TEMP 97.9
== END 2024-11-19 16:54 | disposition home or self-care (01) ==
LOC: EC 13:32 → 6NMEDSUR 16:22
PROVIDERS: ADMIT Hospitalist; ATTEND Hospitalist
DX: I25.110 Atherosclerotic heart disease of native coronary artery with unstable angina pectoris (principal); I10 Essential (primary) hypertension; E78.5 Hyperlipidemia, unspecified; K21.9 Gastro-esophageal reflux disease without esophagitis; F32.A Depression, unspecified; F41.9 Anxiety disorder, unspecified; Z87.891 Personal history of nicotine dependence; Z95.5 Presence of coronary angioplasty implant and graft; Z79.02 Long term (current) use of antithrombotics/antiplatelets; Z79.51 Long term (current) use of inhaled steroids; Z79.82 Long term (current) use of aspirin; Z79.899 Other long term (current) drug therapy; Z88.0 Allergy status to penicillin; Z88.2 Allergy status to sulfonamides
CPT/HCPCS: 99285; 36415; 93005; 93458; 93799; 80053; 80048 ×2; 84484; 85025; 85027 ×2; 85610; 85730; 71046; G0378 ×3; C1760; C1887; C1769 ×3; C1894; J2250; J1644 ×3; J2003; Q9967; J3010; J2305